=== PATIENT | female | born 1945 | race Caucasian/White ===

== ENCOUNTER 2022-07-08 14:20 | Outpatient (CLI) | payer MEDICARE, SELFPAY ==
[2022-07-08 14:58] LABS: Hematocrit 39.8 % (33.0-51.0); Hemoglobin* 13.3 gm/dL (12.0-16.0); Mean Corpuscular HGB Conc 33 gm/dL (32-36); Mean Corpuscular Hemoglobin 30 pg (26-34); Mean Corpuscular Volume 90 fL (80-100); Platelet Count* 202 K/uL (140-440); Red Blood Count 4.43 m/uL (4.00-5.20); White Blood Count* 7.18 K/uL (4.50-11.00)
[2022-07-08 15:06] LABS: Slide Review Reflex No
[2022-07-08 21:20] LABS: Albumin* 4.5 g/dL (3.3-5.0); Chloride* 104 mmol/L (96-114); Sodium* 140 mmol/L (135-149)
[2022-07-08 21:21] LABS: Potassium* 4.4 mmol/L (3.6-5.1)
[2022-07-08 21:23] LABS: Alkaline Phosphatase* 100 U/L (40-150); Aspartate Amino Transferase* 30 U/L (12-35); Bilirubin Total* 0.4 mg/dL (0.1-1.5); Blood Urea Nitrogen* 16 mg/dL (7-30); Carbon Dioxide* 26 mmol/L (20-32); Creatinine* 0.9 mg/dL (0.5-1.5); Estimated Glomerular Filt Rate 66 ml/min; Total Protein* 7.3 g/dL (6.0-8.3)
[2022-07-08 21:24] LABS: Alanine Aminotransferase* 23 U/L (4-35); Calcium* 9.3 mg/dL (8.4-10.6); Glucose* 84 mg/dL (60-115)
== END 2022-07-08 14:21 | disposition home or self-care (01) ==
PROVIDERS: PCP Family Medicine; Visit Provider Physician Assistant Medical
DX: R53.83 Other fatigue (principal); R05.9 Cough, unspecified
CPT/HCPCS: 80053; 84443; 85027

== ENCOUNTER 2022-09-12 10:15 | Outpatient (CLI) | payer MEDICARE, SELFPAY ==
--- OUTSIDE RECORDS SUMMARY | 2022-09-12 10:39 | XMS_ITS | Encounter Summary ---
:1945 Author Organization [facility] Address [address] [place] [address] Care Team Providers Name Role Phone Flavia Guardado MD Primary Care Provider aHley Gayle DO Unavailable Reason for Referral Diagnostic Imaging MRI (Routine) - Closed Specialty Diagnoses / Procedures Referred By Contact Refer red To Contact Diagnoses Memory loss Haley Gayle DO Procedures MR Brain w/o Contrast [address] [place] [address] Phone: Referral ID Status Reason Start Date Expiration Date Visits Requ ested Visits Authorized [id number] Closed 03/08/2021 03/08/2022 1 1 Encounter Details Date Type Department Care Team Description 03/08/2021 Telephone [facility] Haley Gayle DO [place] [address] [facility] [address] [place] [address] [address] [place] [address] [phone] Social History Tobacco Use Types Packs/Day Years Used Date Smoking Tobacco: Never Smokeless Tobacco: Never Alcohol Use Standard Drinks/Week Comments Yes 0 (1 standard drink = 0.6 oz pure alcoho l) 1-2 glasses wine per month Sex Assigned at Date Recorded Not on file COVID-19 Exposure Response Date Recorded In the last month, have you been in contact with No / Unsure 03/01/2021 9:27 AM CDT someone who was confirmed or suspected to have Coronavirus / COVID-19? documented as of this encounter Miscellaneous Notes Telephone Encounter - Katey Webster RN - 03/29/2021 4:00 PM CDT Called [facility] and gave verbal OK for MRI Brain with and without contrast. Katey WILKES RN March 29, 2021 4:01 PM Telephone Encounter - Haley Gayle DO - 03/29/2021 3:09 PM CDT Yes ok to give verbal order for MRI with and without contrast. Thank you triage for relaying this!! Telephone Encounter - Marisol Engel RN - 03/29/2021 2:01 PM CDT [facility] called - based on diagnosis most likely radiologist will need to do with contrast Asking if okay to change order to state with and without contrast? Call back number: , option 2 Ok to call with verbal okay - for MRI adjustment in order Marisol Peralta RN Telephone Encounter - Misti Spears - 03/28/2021 2:09 PM CDT Per patient request- MRI order faxed to [phone] Telephone Encounter - Haley Gayle DO - 03/08/2021 1:45 PM CDT MRI ordered - given to Maegan who accompanied to his visit today. [facility] re: insurance coverage for an open brain MRI. documented in this encounter Plan of Treatment Scheduled Orders Name Type Priority Associated Diagnoses Order S chedule MR Brain w/o Contrast Imaging Routine Memory loss Expect ed: 03/15/2021 (Approximate), Expires: 03/08/2022 documented as of this encounter Visit Diagnoses Diagnosis Memory loss - Primary documented in this encounter Care Teams Area Development Consultant Relationship Specialty Start Date End Date Flavia Guardado MD PCP - General Family Practice 08/05/[address] [address] Haley Gayle DO Assigned PCP 02/01/21 [address] [place] [address] documented as of this encounter
--- OUTSIDE RECORDS SUMMARY | 2022-09-12 10:39 | XMS_ITS | Encounter Summary ---
:1945 Author Organization [facility] Address [address] [place] [address] Care Team Providers Name Role Phone Flavia Guardado MD Primary Care Provider [phone] Haley Gayle DO Unavailable Encounter Details Date Type Department Care Team Description 03/01/2021 Travel Social History Tobacco Use Types Packs/Day Years [...] / COVID-19? documented as of this encounter Plan of Treatment Not on filedocumented as of this encounter Visit Diagnoses Not on filedocumented in this encounter Care Teams Property Adjuster Relationship Specialty Start Date End Date Flavia Guardado MD PCP - General Family Practice 08/05/[address] [address] Haley Gayle DO Assigned PCP 02/01/21 [address] [place] [address] documented as of this encounter
--- OUTSIDE RECORDS SUMMARY | 2022-09-12 10:39 | XMS_ITS | Encounter Summary ---
:1945 Author Organization [facility] Address [address] [place] [address] Care Team Providers Name Role Phone Flavia Guardado MD Primary Care Provider [phone] Haley Gayle DO Unavailable Encounter Details Date Type Department Care Team Description 06/16/2022 Travel Social History Tobacco Use Types Packs/Day Years Used Date Smoking Tobacco: Never Smokeless Tobacco: Never Alcohol Use Standard Drinks/Week Comments Yes 0 (1 standard drink = 0.6 oz pure alcoho l) 1-2 glasses wine per month Sex Assigned at Date Recorded Not on file COVID-19 Exposure Response Date Recorded In the last 10 days, have you been in contact with No / Unsu re 06/16/2022 5:28 PM CDT someone who was confirmed or suspected to have Coronavirus/COVID-19? documented as of this encounter Plan of Treatment Not on filedocumented as of this encounter Visit Diagnoses Not on filedocumented in this encounter Care Teams Air Bag Curer Relationship Specialty Start Date End Date Flavia Guardado MD PCP - General Family Practice 08/05/[address] [address] Haley Gayle DO Assigned PCP 02/01/21 [address] [place] [address] documented as of this encounter
--- OUTSIDE RECORDS SUMMARY | 2022-09-12 10:39 | XMS_ITS | Clinical Summary ---
:1945 Author Organization [facility] [place] [address] Care Team Providers Name Role Phone Flavia Guardado MD Primary Care Provider [phone] Allergies Active Allergy Reactions Severity Noted Date Comments Prednisone Vomiting 02/20/2021 Medications Medication Sig Dispensed Refills Start Date End Date Status multivitamin-minerals Daily 0 Active therapeutic (THERAGRAN-M) tablet escitalopram oxalate Take 10 mg by 0 03/26/2021 Active (LEXAPRO) 10 mg tablet mouth once daily. cholecalciferol (VITAMIN Take 1,000 0 12/22/2020 Active D3) 1,000 unit tablet units by mouth once daily. rosuvastatin (CRESTOR) 5 0 03/20/2021 Active mg tablet famotidine (PEPCID) 20 Take 1 Tablet 0 03/28/2021 Active mg tablet (20 mg) by mouth 2 times daily. omeprazole (PRILOSEC) 40 Take 1 Capsule 30 Capsule 11 1 Active mg Delayed-Release (40 mg) by capsuleIndications: mouth once Hoarseness of voice, daily. Gastroesophageal reflux disease, unspecified whether esophagitis present Active Problems Not on file Social History Tobacco Use Types Packs/Day Years Used Date Never Smoker Smokeless Tobacco: Never Used Tobacco Cessation: Counseling Given: Yes Sex Assigned at Date Recorded Not on file Obstetrics History Last Filed Vital Signs Vital Sign Reading Time Taken Comments Blood Pressure 126/68 03/28/2021 3:08 PM CDT Pulse 82 03/28/2021 3:08 PM CDT Temperature - - Respiratory Rate - - Oxygen Saturation 97% 03/28/2021 3:08 PM CDT Inhaled Oxygen Concentration - - Weight 70.7 kg (155 lb 12.8 oz) 03/28/2021 3:08 PM CDT Height - - Body Mass Index - - Plan of Treatment Health Maintenance Due Date Last Done Comments Tdap 1956 Depression screening for age 12+ 1957 BMI (ht and wt on same day) for age 18+ 1963 Hepatitis C screening for age 18-79 1963 Tetanus booster 1965 Zoster (shingles) series for age 50+ (1 of 1995 2) DEXA/DXA scan for age 65+ 2010 Medicare Wellness for age 65+ 2010 Pneumococcal series for age 65+ (1 - PCV) 2010 COVID-19 vaccine series (3 - Booster for 03/10/2021 021, 12/23/2020 Pfizer series) Influenza for age 65+ 07/11/2022 Results Not on filefrom Last 3 Months Insurance Payer Benefit Plan / Subscriber ID Effective Dates Phone Addre ss Type Group MEDICARE PART B MEDICARE PART B [id number] 2010-Present ATTN: CLAIMS - HB USE ONLY HB ONLY [address] [place] [address] [facility] MEDICARE [id number] 2019-Present [address] [place] [address] Care Teams Residential Program Manager Relationship Specialty Start Date End Date Flavia Guardado MD PCP - General Family Practice 08/05/16[address] [place] [address]
--- OUTSIDE RECORDS SUMMARY | 2022-09-12 10:39 | XMS_ITS | Clinical Summary ---
:1945 Author Organization [facility] Address [address] [place] [address] Care Team Providers Name Role Phone Flavia Guardado MD Primary Care Provider [phone] Haley Gayle DO Unavailable Allergies Active Allergy Reactions Severity Noted Date Comments Prednisone 02/20/2021 Medications Medication Sig Dispensed Refills Start Date End Date Status escitalopram (LEXAPRO) Take 10 mg by 0 Active 10 MG tablet mouth daily Multiple vitamin TABS Take by mouth 0 Active daily albuterol (ALBUTEROL) Inhale 2 puffs 1 Inhaler 1 09/12/2016 Active 108 (90 BASE) MCG/ACT into the lungs inhalerIndications: every 6 hours as SOB (shortness of needed for breath) shortness of breath / dyspnea or wheezing ibuprofen (ADVIL) 200 Take 400 mg by 0 Active MG tablet mouth as needed for mild pain rosuvastatin (CRESTOR) Take 5 mg by mouth 0 12/22/19 21 Active 5 MG tablet daily famotidine (PEPCID) 20 Take 20 mg by 0 02/13/2021 Active MG tablet mouth 2 times daily Active Problems Patient Care Coordination Note Formatting of this note might be differe nt from the original. [email or web address] No additional problems on file Resolved Problems Problem Noted Date Resolved Date Thoracic or lumbosacral neuritis or radiculitis, unspecified 05/08/2015 07/07/2015 Encounters Date Type Specialty Care Team Description 06/16/2022 Travel from Last 3 Months Immunizations Name Administration Dates Next Due MIKE BONNER,Mary (12+ Yrs) 01/13/2021, 12/23/2020 Influenza (High Dose) 3 valent vaccine 09/10/2018 Influenza Vaccine IM > 6 months Valent IIV4 08/29/2020, 10/10 (Alfuria,Fluzone) Pneumo Conj 13-V (2010&after) 08/29/2017 Pneumococcal 23 valent 09/12/2010 TDAP Vaccine (Adacel) 03/29/2014, 05/20/2006 Td (Adult), Adsorbed 03/24/1998 Zoster vaccine, live 03/10/2008 Family History Medical History Relation Comments Diabetes Brother Colon Cancer Father Substance Abuse Father Anxiety Disorder Mother Hyperlipidemia Mother Hypertension Mother Other Cancer Mother Liver Relation Status Comments Brother Father (Age 66) Colon Cancer Mother (Age 76) HTN , Cancer Social History Tobacco Use Types Packs/Day Years Used Date Smoking Tobacco: Never Smokeless Tobacco: Never Alcohol Use Standard Drinks/Week Comments Yes 0 (1 standard drink = 0.6 oz pure alcoho l) 1-2 glasses wine per month Sex Assigned at Date Recorded Not on file Last Filed Vital Signs Vital Sign Reading Time Taken Comments Blood Pressure 133/83 03/01/2021 9:36 AM CDT Pulse 106 03/01/2021 9:36 AM CDT Temperature 36.4 ??C (97.5 ??F) 03/01/2021 9:36 AM CDT Respiratory Rate - - Oxygen Saturation 97% 03/01/2021 9:36 AM CDT Inhaled Oxygen Concentration - - Weight 70.8 kg (156 lb) 03/01/2021 9:36 AM CDT Height 167.6 cm (5' 6) 03/01/2021 9:36 AM CDT Body Mass Index 25.18 03/01/2021 9:36 AM CDT Plan of Treatment Health Maintenance Due Date Last Done Comments ADVANCE CARE PLANNING 1945 ANNUAL REVIEW OF HM ORDERS 1945 DEXA 1945 HEPATITIS C SCREENING 1963 ZOSTER IMMUNIZATION (2 of 05/05/2008 03/10/2008 3) MEDICARE ANNUAL WELLNESS 2010 VISIT COVID-19 Vaccine (3 - 03/10/2021 01/13/2021, 12/23/2020 Booster for Pfizer series) LIPID 07/17/2021 07/17/2016 PHQ-2 (once per calendar 11/10/2021 03/01/2021 year) FALL RISK ASSESSMENT 03/01/2022 03/01/2021 INFLUENZA VACCINE (#1) 2022 08/29/2020, 10/19/2019, 09/10/2018, Additional history exists DTAP/TDAP/TD IMMUNIZATION 03/29/2024 03/29/2014, 03/29/2014 , (3 - Td or Tdap) 05/20/2006, Additional history exists HEPATITIS B IMMUNIZATION Completed 01/04/2000, 08/03/1999, 06/15/1999 Pneumococcal Vaccine: 65+ Completed 08/29/2017, 09/12/2010 Years IPV IMMUNIZATION Aged Out No longer eligi ble based on patient 's age to complete this topic MENINGITIS IMMUNIZATION Aged Out No longe r eligible based on patient 's age to complete this topic Insurance Payer Benefit Plan / Subscriber ID Effective Dates Phone Addre ss Type Group [facility] MEDICARE [id number] 2019-Present [phone] [address] [place] [address] Anabel Bradford Medicare Self 1945 [id number] [employer] (Home) W [phone] [place] (Work) [phone] Care Teams Chief Guard Relationship Specialty Start Date End Date Flavia Guardado MD PCP - General Family Practice 08/05/16 [facility] [address] [place] [address] Haley Gayle, Assigned PCP 02/01/21 [address] [place] [address]
--- OUTSIDE RECORDS SUMMARY | 2022-09-12 10:39 | XMS_ITS | Encounter Summary ---
:1945 Author Organization [facility] Address [address] [place] [address] Care Team Providers Name Role Phone Flavia Guardado MD Primary Care Provider [phone] Haley Gayle DO Unavailable Reason for Visit Reason Onset Date Comments MRI Materials Engineer 04/05/2021 Brain 04/03/21 Encounter Details Date Type Department Care Team Description 04/05/2021 Telephone [facility] Haley Gayle, MRI Materials Engineer Clinic [facility] (Brain 04/03/21) [address], [address] [place] [address] [place], [place] [id number] (Wo rk) Social History Tobacco Use Types Packs/Day Years Used Date Smoking Tobacco: Never Smokeless Tobacco: Never Alcohol Use Standard Drinks/Week Comments Yes 0 (1 standard drink = 0.6 oz pure alcoho l) 1-2 glasses wine per month Sex Assigned at Date Recorded Not on file documented as of this encounter Miscellaneous Notes Telephone Encounter - Haley Gayle DO - 04/05/2021 4:59 PM CDT Received brain MRI from [facility] and shared results with Maegan on the phone. 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 She was relieved. She can contact [facility] directly if she'd like a copyof the report. Haley Gayle DO documented in this encounter Plan of Treatment Not on filedocumented as of this encounter Visit Diagnoses Not on filedocumented in this encounter Care Teams Material Control Manager Relationship Specialty Start Date End Date Flavia Guardado MD PCP - General Family Practice 08/05/[address] [address] Haley Gayle DO Assigned PCP 02/01/21 [address] [place] [address] documented as of this encounter
--- OUTSIDE RECORDS SUMMARY | 2022-09-12 10:40 | XMS_ITS | Encounter Summary ---
:1945 Author Organization [facility] Address [address] [facility] [place] [address] Care Team Providers Name Role Phone Flavia Guardado MD Primary Care Provider [phone] Reason for Visit Reason Comments Hyperlipidemia 1 month f/u w/ Dr Carlson; HL D, Chest Pain, ARENAS Results CTA - Closed Specialty Diagnoses / Procedures Referred By Contact Refer red To Contact Diagnoses SOB (shortness of breath) Chest pain, unspecified type Emilie Carlson DO [address] [place] [address] Referral ID Status Reason Start Date Expiration Date Visits Requ ested Visits Authorized [id number] Closed 11/23/2016 11/23/2017 1 1 Encounter Details Date Type Department Care Team Description 11/25/2016 Office Visit [facility] Emilie Carlson Hyper lipidemia LDL goal <100 (Primary Dx); [facility] DO [place] SOB (shortness of breath); [place] [address] Chest pain, unspecified type [address] [place] [address] [place], [place] [phone] (Work) [phone] Social History Tobacco Use Types Packs/Day Years Used Date Smoking Tobacco: Never Alcohol Use Standard Drinks/Week Comments Yes 0 (1 standard drink = 0.6 oz pure alcoho l) rare Sex Assigned at Date Recorded Not on file documented as of this encounter Last Filed Vital Signs Vital Sign Reading Time Taken Comments Blood Pressure 134/80 11/25/2016 10:15 AM PHYSIOGNOMIST Pulse 60 11/25/2016 10:15 AM PHYSIOGNOMIST Temperature - - Respiratory Rate - - Oxygen Saturation - - Inhaled Oxygen Concentration - - Weight 68.9 kg (152 lb) 11/25/2016 10:15 AM PHYSIOGNOMIST Height 167.6 cm (5' 6) 11/25/2016 10:15 AM PHYSIOGNOMIST Body Mass Index 24.53 11/25/2016 10:15 AM PHYSIOGNOMIST documented in this encounter Progress Notes Emilie Carlson, DO - 11/25/2016 10:32 AM CST HPI and Plan: See dictation No orders of the defined types were placed in this encounter. Orders Placed This Encounter Medications ??? ibuprofen (ADVIL) 200 MG tablet Sig: Take 400 mg by mouth as needed for mild pain There are no discontinued medications. Encounter Diagnoses Name Primary? SOB (shortness of breath) ??? Chest pain, unspecified type ? ? Hyperlipidemia LDL goal <100 Yes CURRENT MEDICATIONS: Current Outpatient Prescriptions Medication Sig Dispense Refill ??? ibuprofen (ADVIL) 200 MG tablet Take 400 mg by mouth as needed for mild pain ??? escitalopram (LEXAPRO) 10 MG tablet Take 10 mg by mouth daily ??? atorvastatin (LIPITOR) 10 MG tablet Take 10 mg by mouth daily ??? Multiple vitamin TABS Take by mouth daily ??? aspirin 81 MG tablet Take by mouth daily ??? albuterol (ALBUTEROL) 108 (90 BASE) MCG/ACT inhaler Inhale 2 puffs into the lungs every 6 hours as needed for shortness of breath / dyspnea or wheezing 1 Inhaler 1 ALLERGIES No Known Allergies PAST MEDICAL HISTORY: Past Medical History Diagnosis Date ??? Shortness of breath ARENAS ??? Chest heaviness ??? Hyperlipidemia ??? Anxiety and depression ??? Asthma, intermittent ??? Basal cell carcinoma 2014 On Nose PAST SURGICAL HISTORY: Past Surgical History Procedure Laterality Date ??? Hysterectomy ??? Shoulder surgery FAMILY HISTORY: Family History Problem Relation Age of Onset ??? Hypertension Mother ??? Hyperlipidemia Mother ??? Colon Cancer Father ??? Substance Abuse Father SOCIAL HISTORY: Social History Social History ??? Marital Status: Spouse Name: N/A ??? Number of Children: N/A ??? Years of Education: N/A Social History Main Topics ??? Smoking status: Never Smoker ??? Smokeless tobacco: None ??? Alcohol Use: 0.0 oz/week 0 Standard drinks or equivalent per week Comment: rare ??? Drug Use: None ??? Sexual Activity: Not Asked Other Topics Concern ??? Caffeine Concern Yes 4-5 cups of coffee daily ??? Sleep Concern Yes sleep apnea c-pap ??? Special Diet No ??? Exercise No walking 2-3x per week Social History Narrative Review of Systems: Skin: Negative Eyes: Positive for glasses ENT: Positive for sinus trouble;tinnitus seasonal sinus Respiratory: Positive for sleep apnea;CPAP Asthma Cardiovascular: Positive for;fatigue chest pressure - a little bit - per pt Gastroenterology: Positive for constipation Diverticulosis- harder stools Genitourinary: Positive for urgency occas Musculoskeletal: Positive for back pain;joint pain;nocturnal cramping mild pain in back that comes and goes; right knee Neurologic: Positive for migraine headaches;headaches hx of migraines / headaches -none recently Psychiatric: sleep disturbances;anxiety taking Lexapro Heme/Lymph/Imm: Positive for allergies seasonal Endocrine: Negative Physical Exam: Vitals: BP 134/80 mmHg Pulse 60 Ht 1.676 m (5' 6) Wt 68.947 kg (152 lb) BMI 24.55 kg/m2 Constitutional: cooperative, alert and oriented, well developed, well nourished, in no acute distress Skin: warm and dry to the touch Head: normocephalic Eyes: pupils equal and round ENT: no pallor or cyanosis Neck: Chest: Cardiac: Abdomen: Vascular: Extremities and Back: no deformities, clubbing, cyanosis, erythema observed;no edema Neurological: affect appropriate, oriented to time, person and place;no gross motor deficits Emilie Carlson DO [facility] [address] [place] [address] IOGNOMIST Emilie Carlson DO - 11/25/2016 10:32 AM CST REFERRING PHYSICIAN: Dr. Flavia Guardado. HISTORY OF PRESENT ILLNESS: Ms. Mccauley is a pleasant 71-year-old female with a history of hyperlipidemia, chest pain and dyspnea on exertion as well as profound fatigue. She had undergone a stress test at [facility] that was read as normal, although she did have some minor EKG abnormalities. She u nderwent pulmonary evaluation which was fairly unremarkable. She continued to have symptoms. Therefore, I had recommended pursuing a CT coronary angiogram for further evaluation. She is here to go overthose tests results. Her CT coronary angiogram unfortunately showed only minimal nonobstructive coronary disease. Her total calcium scoring was 50 which is right in the middle of where she should be for her age and gender matched group. Certainly, no indication that significant heart disease are causative of her symptoms. I reviewed the test results with her today. PHYSICAL EXAMINATION: On exam, her blood pressure is 134/80. This is actually a little high for her.She is very normotensive on her previous visits. Heart rate is 60, weight 152 with a body mass indexof 24. Physical exam findings are otherwise unchanged. SUMMARY: Ms. Mccauley is a very pleasant 71-year-old female with symptoms of chest pain and dyspnea on exertion, hyperlipidemia. She has very minimal coronary disease, certainly does not explain her symptoms. She has had a normal stress echocardiogram with some minor EKG abnormalities. I suspect she may have some degree of diastolic dysfunction contributing to her symptoms, but I do not see any evidenceof acute decompensation or need for medication at this time as she is normotensive with a slow pulse. I have suggested a walking program for her to improve upon her exercise tolerance. This was noted to be poor on her stress echo at [facility] as well. She has already started this and she will continue this as she is traveling to [place], [place] for about 2 months. I have suggested walking at least 3 or 4 times a week at a brisk pace for approximately 20 minutes to improve upon her exercise tolerance. I will refer her back to her primary care provider at this time. Certainly, if she has any other questions or concerns, I am happy to see her back for any of her cardiovascular needs. Please feel freeto contact me with any questions you have in regards to her care. cc: Flavia Guardado MD [address] [address] EMILIE CARLSON DO MT: [place] Name: ANABEL MCCAULEY Account: [id number] : 1945 Service Date: 11/25/2016 Document: [id number] IOGNOMIST documented in this encounter Plan of Treatment Not on filedocumented as of this encounter Visit Diagnoses Diagnosis Hyperlipidemia LDL goal <100 - Primary Other and unspecified hyperlipidemia SOB (shortness of breath) Shortness of breath Chest pain, unspecified type documented in this encounter Care Teams Signal Operator Technical Relationship Specialty Start Date End Date Flavia Guardado MD PCP - General Family Practice 08/05/16 [facility] [address] [place] [address] documented as of this encounter
--- OUTSIDE RECORDS SUMMARY | 2022-09-12 10:40 | XMS_ITS | Encounter Summary ---
:1945 Author Organization [place] Address [address] [place] [address]. [place] [address] Care Team Providers Name Role Phone Flavia Guardado MD Primary Care Provider [phone] Reason for Visit Reason Onset Date Comments *-*INCOMING RECORDS*-* 09/06/2016 received PMD visi t 07/17/16. Xray, EKG and labs(lipid panel, BMP, B12, CBC , TSH, Vit D, ALT, AST) from 07/17/16. Stress test and stress ECHO dated 07/30/16 Encounter Details Date Type Department Care Team Description 09/06/2016 Telephone [facility] AldoEmilie *-*IN COMING RECORDS*-* Heart Clinic Yumi Palma DO (received PMD visit [address] [facility] [address] . Xray, EKG and [address] labs(lipid panel, BMP, [place] [address] [place] [address] B12, CBC, TSH, Vit D, (Wo rk) ALT, AST) from 07/17/16. Stress te st and stress ECHO dated 07/30) Social History Tobacco Use Types Packs/Day Years Used Date Smoking Tobacco: Never Assessed Sex Assigned at Date Recorded Not on file documented as of this encounter Plan of Treatment Not on filedocumented as of this encounter Procedures Procedure Name Priority Date/Time Associated Diagnosis Comme nts CBC (GENOA) Routine 07/17/2016 Results for thi s procedure are i n the results section . VITAMIN D 25-HYDROXY Routine 07/17/2016 Results for this ([facility]) procedure are i n the results section . TSH Routine 07/17/2016 Results for thi s procedure are i n the results section . LIPID PROFILE Routine 07/17/2016 Results for th is procedure are i n the results section . VITAMIN B12 Routine 07/17/2016 Results for thi s procedure are i n the results section . BASIC METABOLIC PANEL Routine 07/17/2016 Result s for this procedure are i n the results section . documented in this encounter Results Lipid Profile (07/17/2016) Analysis Performed At Patho logist Time Signature Cholesterol 238 mg/dL EXTERNAL LAB Triglycerides 169 mg/dL EXTERNAL LAB HDL Cholesterol 45 mg/dL EXTERNAL LAB LDL Cholesterol 159 mg/dL EXTERNAL LAB Calculated Non HDL mg/dl EXTERNAL LAB Cholesterol AST 33 U/L EXTERNAL LAB ALT 31 U/L EXTERNAL LAB Alk Phosphatase 82 EXTERNAL LAB (External) Albumin 4.6 g/dL EXTERNAL LAB Specimen (Source) Anatomical Location Collection Method / Collectio n Time Received Time / Laterality Volume Blood specimen 07/17/2016 (specimen) Provider Outside LAB - BLOOD ORDERABLES Performing Organization Address City/State/ZIP Code Phon e Number EXTERNAL LAB EXTERNAL LAB External Lab CBC ([place]) (07/17/2016) P athologist Signature WBC 6.3 10^9/L EXTERNAL LAB RBC Count 4.71 10^12/L EXTERNAL LAB Hemoglobin 14.6 11.7 - EXTERNAL LAB 15.7 g/dL Hematocrit 42.6 % EXTERNAL LAB MCV 90 fl EXTERNAL LAB MCH 31 pg EXTERNAL LAB MCHC [place] 34 % EXTERNAL LAB RDW % EXTERNAL LAB Platelet Count 199 10^9/L EXTERNAL LAB Mean Platelet fL EXTERNAL LAB Volume % Neutrophils 58.2 % EXTERNAL LAB % Lymphocytes 32.3 % EXTERNAL LAB % Monocytes % EXTERNAL LAB % Eosinophils % EXTERNAL LAB % Basophils % EXTERNAL LAB Abs Neutrophils cells/mm3 EXTERNAL LAB Abs Lymphocytes cells/mm3 EXTERNAL LAB Abs Monocytes cells/mm3 EXTERNAL LAB Abs Eosinophils cells/mm3 EXTERNAL LAB Abs Basophils cells/mm3 EXTERNAL LAB Specimen (Source) Anatomical Location Collection Method / Collectio n Time Received Time / Laterality Volume Blood specimen 07/17/2016 (specimen) Provider Outside LAB - BLOOD ORDERABLES Performing Organization Address City/State/ZIP Code Phon e Number EXTERNAL LAB EXTERNAL LAB External Lab Basic metabolic panel (07/17/2016) P athologist Signature Sodium 145 mmol/L EXTERNAL LAB Potassium 4.8 mmol/L EXTERNAL LAB Chloride 105 mmol/L EXTERNAL LAB CO2, TOTAL 28 mmol/L EXTERNAL LAB Anion Gap mmol/L EXTERNAL LAB Glucose 94 70 - 99 EXTERNAL LAB mg/dL Urea Nitrogen 11 mg/dL EXTERNAL LAB Creatinine 0.8 mg/dL EXTERNAL LAB Calcium 9.7 mg/dL EXTERNAL LAB Specimen (Source) Anatomical Location Collection Method / Collectio n Time Received Time / Laterality Volume Blood specimen 07/17/2016 (specimen) Provider Outside LAB - BLOOD ORDERABLES Performing Organization Address City/[facility]/ZIP [facility] Phon e Number EXTERNAL LAB EXTERNAL LAB External Lab TSH (07/17/2016) athologist Signature TSH 1.260 mcU/mL EXTERNAL LAB Specimen (Source) Anatomical Location Collection Method / Collectio n Time Received Time / Laterality Volume Blood specimen 07/17/2016 (specimen) Provider Outside LAB - BLOOD ORDERABLES Performing Organization Address City/[facility]/ZIP Code Phon e Number EXTERNAL LAB EXTERNAL LAB External Lab Vitamin D 25-Hydroxy ([facility]) (07/17/2016) P athologist Signature Vitamin 33 ng/mL EXTERNAL LAB D,25-Hydroxy Specimen (Source) Anatomical Location Collection Method / Collectio n Time Received Time / Laterality Volume Blood specimen 07/17/2016 (specimen) Provider Outside LAB - [facility] Performing Organization Address City/[facility]/ZIP Code Phon e Number EXTERNAL LAB EXTERNAL LAB External Lab Vitamin B12 (07/17/2016) P athologist Signature Vitamin B12 436 pg/mL EXTERNAL LAB Specimen (Source) Anatomical Location Collection Method / Collectio n Time Received Time / Laterality Volume Blood specimen 07/17/2016 (specimen) Provider Outside LAB - BLOOD ORDERABLES Performing Organization Address City/[facility]/ZIP Code Phon e Number EXTERNAL LAB EXTERNAL LAB External Lab documented in this encounter Visit Diagnoses Not on filedocumented in this encounter Care Teams Allocation Analyst Relationship Specialty Start Date End Date Flavia Guardado MD PCP - General Family Practice 08/05/[address] [address] documented as of this encounter
--- OUTSIDE RECORDS SUMMARY | 2022-09-12 10:40 | XMS_ITS | Encounter Summary ---
:1945 Author Organization [place] Address [facility] [place] [address] Care Team Providers Name Role Phone Flavia Guardado MD Primary Care Provider [phone] Encounter Details Date Type Department Care Team Description 09/19/2016 Hospital Encounter [facility] Emilie Carlson SOB (shortness of [facility] [place], DO breath) [address] [facility] [address] [place], [place] [address] [place], [place] [address] Social History Tobacco Use Types Packs/Day Years Used Date Smoking Tobacco: Never Alcohol Use Standard Drinks/Week Comments Yes 0 (1 standard drink = 0.6 oz pure alcoho l) rare Sex Assigned at Date Recorded Not on file documented as of this encounter Medications at Time of Discharge Medication Sig Dispensed Refills Start Date End Date albuterol (ALBUTEROL) Inhale 2 puffs into 1 Inhaler 1 09/12 108 (90 BASE) MCG/ACT the lungs every 6 inhalerIndications: SOB hours as needed for (shortness of breath) shortness of breath / dyspnea or wheezing escitalopram (LEXAPRO) Take 10 mg by mouth 0 10 MG tablet daily Multiple vitamin TABS Take by mouth daily 0 aspirin 81 MG tablet Take by mouth daily 0 03/01/2021 atorvastatin (LIPITOR) Take 10 mg by mouth 0 03/01/2021 10 MG tablet daily documented as of this encounter Plan of Treatment Not on filedocumented as of this encounter Procedures Procedure Name Priority Date/Time Associated Diagnosis Comme nts HEMOGLOBIN Routine 09/19/2016 11:25 AM SOB (shortness of Res ults for this RESIDENT CARE MANAGER RN breath) procedure are i n the results section . documented in this encounter Results Hemoglobin (09/19/2016 11:25 AM RESIDENT CARE MANAGER RN) athologist Signature Hemoglobin 13.7 11.7 - 15.7 [facility] g/dL [facility] Specimen Anatomical Collection Method Collection Time Receive d Time (Source) Location / / Volume Laterality Blood specimen 09/19/2016 11:25 6 (specimen) AM RESIDENT CARE MANAGER RN 11:26 AM RESIDENT CARE MANAGER RN Emilie Carlson DO LAB - BLOOD ORDERABLES Performing Organization Address City/State/ZIP Code Phon e Number [place] [address] [address] [place] [address] [phone] documented in this encounter Visit Diagnoses Diagnosis SOB (shortness of breath) Shortness of breath documented in this encounter Care Teams Dental Appliance Mechanic Relationship Specialty Start Date End Date Flavia Guardado MD PCP - General Family Practice 08/05/[address] [address] documented as of this encounter
--- OUTSIDE RECORDS SUMMARY | 2022-09-12 10:40 | XMS_ITS | Encounter Summary ---
:1945 Author Organization [place] Address [address] [facility] [place] [address] Care Team Providers Name Role Phone Flavia Guardado MD Primary Care Provider [phone] Reason for Referral - Closed Specialty Diagnoses / Procedures Referred By Contact Refer red To Contact Diagnoses SOB (shortness of breath) Chest pain, unspecified type Emilie Carlson DO [address] [place] [address] Referral ID Status Reason Start Date Expiration Date Visits Requ ested Visits Authorized [id number] Closed 10/12/2016 10/12/2017 1 1 Encounter Details Date Type Department Care Team Description 09/12/2016 Office Visit [facility] Emilie Carlson SOB ( shortness of breath) (Primary Dx); Heart [facility] DO Minerva Chest pain, unspecified type Prim [address] [place] [address] [place], [place] [phone] (Wo rk) [address] [phone] Social History Tobacco Use Types Packs/Day Years Used Date Smoking Tobacco: Never Alcohol Use Standard Drinks/Week Comments Yes 0 (1 standard drink = 0.6 oz pure alcoho l) rare Sex Assigned at Date Recorded Not on file documented as of this encounter Last Filed Vital Signs Vital Sign Reading Time Taken Comments Blood Pressure 114/80 09/12/2016 7:52 AM CDT Pulse 72 09/12/2016 7:52 AM CDT Temperature - - Respiratory Rate - - Oxygen Saturation - - Inhaled Oxygen Concentration - - Weight 68.3 kg (150 lb 9.6 oz) 09/12/2016 7:52 AM CDT Height 167.6 cm (5' 6) 09/12/2016 7:52 AM CDT Body Mass Index 24.31 09/12/2016 7:52 AM CDT documented in this encounter Progress Notes Emilie Carlson, DO - 09/12/2016 8:33 AM CDT HPI and Plan: See dictation Orders Placed This Encounter Procedures ??? Follow-Up with Mechanical Test Engineer ??? General PFT Lab (Please always keep checked) Orders Placed This Encounter Medications ??? escitalopram (LEXAPRO) 10 MG tablet Sig: Take 10 mg by mouth daily ??? atorvastatin (LIPITOR) 10 MG tablet Sig: Take 10 mg by mouth daily ??? Multiple vitamin TABS Sig: Take by mouth daily ??? aspirin 81 MG tablet Sig: Take by mouth daily ??? albuterol (ALBUTEROL) 108 (90 BASE) MCG/ACT inhaler Sig: Inhale 2 puffs into the lungs every 6 hours as needed for shortness of breath / dyspnea or wheezing Dispense: 1 Inhaler Refill: 1 There are no discontinued medications. Encounter Diagnoses Name Primary? SOB (shortness of breath) Yes ??? Chest pain, unspecified type CURRENT MEDICATIONS: Current Outpatient Prescriptions Medication Sig Dispense Refill ??? escitalopram (LEXAPRO) 10 MG tablet Take [...] ALLERGIES No Known Allergies PAST MEDICAL HISTORY: No past medical history on file. PAST SURGICAL HISTORY: No past surgical history on file. FAMILY HISTORY: Family History Problem Relation Age of Onset ??? Hypertension Mother ??? Hyperlipidemia Mother ??? Colon Cancer Father ??? Substance Abuse Father SOCIAL HISTORY: Social History Social History ??? Marital Status: Spouse Name: N/A ??? Number of Children: N/A ??? Years of Education: N/A Social History Main Topics ??? Smoking status: Never Smoker ??? Smokeless tobacco: Not on file ??? Alcohol Use: 0.0 oz/week 0 Standard drinks or equivalent per week Comment: rare ??? Drug Use: Not on file ??? Sexual Activity: Not on file Other Topics Concern ??? Caffeine Concern Yes 4-5 cups of coffee daily ??? Sleep Concern Yes sleep apnea c-pap ??? Special Diet No ??? Exercise No Social History Narrative ??? No narrative on file Review of Systems: Skin: Negative Eyes: Positive for glasses ENT: Positive for sinus trouble;tinnitus seasonal sinus , Respiratory: Positive for dyspnea on exertion;sleep apnea;CPAP Asthma Cardiovascular: fatigue;Positive for Gastroenterology: Positive for Diverticulosis Genitourinary: Negative Musculoskeletal: Positive for back pain mild pain in back that comes and goes Neurologic: Positive for migraine headaches;headaches Psychiatric: Positive for excessive stress taking Lexapro Heme/Lymph/Imm: Positive for allergies seasonal Endocrine: Negative Physical Exam: Vitals: BP 114/80 mmHg Pulse 72 Ht 1.676 m (5' 6) Wt 68.312 kg (150 lb 9.6 oz) BMI 24.32 kg/m2 Constitutional: cooperative, alert and oriented, well developed, well nourished, in no acute distress Skin: warm and dry to the touch Head: normocephalic Eyes: pupils equal and round ENT: no pallor or cyanosis Neck: carotid pulses are full and equal bilaterally Chest: clear to auscultation;normal symmetry Cardiac: regular rhythm;no murmurs, gallops or rubs detected Abdomen: abdomen soft;no bruits Vascular: pulses full and equal Extremities and Back: no deformities, clubbing, cyanosis, erythema observed;no edema Neurological: affect appropriate, oriented to time, person and place;no gross motor deficits Flavia Guardado MD [address] [address] Emilie Carlson DO - 09/12/2016 8:30 AM CDT REFERRING PHYSICIAN: Dr. Flavia Guardado HISTORY OF PRESENT ILLNESS: Ms. Mccauley is a very pleasant 71-year-old female with a past medical history of hyperlipidemia who presents to clinic today for further evaluation of symptoms of shortness ofbreath, dyspnea on exertion, heaviness in the chest and fatigue. She states this has been ongoing for about 4-5 months. She admits to a lot of stress in her life and was recently diagnosed with anxietyand depression and put on Lexapro which she feels is helping with those symptoms. She has also been on Lipitor now for about 2 months for her hyperlipidemia. She underwent a stress echocardiogram at [facility] for her symptoms of chest heaviness and shortness of breath. She walkedon a Kenji protocol for 4 minutes and 9 seconds terminating due to fatigue. She achieved 113% of hertarget heart rate. The stress ECG portion did demonstrate 1-[address] segment depression in the inferior leads; however, the echocardiogram showed appropriate augmentation of the LV function without re gional wall motion abnormality suggesting a normal stress test. She likes to walk with her almost 2 miles per night and every time she walks up a hill lately she feels a heaviness in her chest as well as difficulty breathing and overall fatigue. This has limited her activity in the last 4-5 months. She has not experienced any palpitations or lightheadedness. She does have a history of intermittent asthma and has been prescribed an inhaler in the past. Shedoes not recall having had pulmonary function tests. She is a lifelong nonsmoker. 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 She has never worked on a farm or had any exposure to air pollutants. She has no history of asbestos exposure. They travel infrequently. She states [facility] [place] [facility] [place] [facility]. She has not experienced any coughing or wheezing with activities. She has no family history of premature coronary disease. Both parents apparently had hyperlipidemia andhypertension. No diabetes. No history of kidney disease. She has no history of personal diabetes or kidney disease or hypertension. I did review her EKG from 07/12 which looks completely normal. PHYSICAL EXAMINATION: On exam today, her blood pressure is 114/80, pulse is 72, weight 150, body mass index of 24. Carotid upstrokes are brisk without bruit. Cardiovascular tones are regular. She does have occasional ectopy noted on exam. I do not appreciate a murmur, gallop or rub. Lungs are clear posteriorly. She has strong and symmetric pulses in the upper and lower extremities without peripheral edema. IN SUMMARY: Ms. Mccauley is a very pleasant 71-year-old female with a history of hyperlipidemia, recently treated in the last 2 months with symptoms of chest heaviness, dyspnea on exertion and overwhelming fatigue over the past 4-5 months. She has had a negative stress test for evidence of ischemia. She does have a history of possible intermittent asthma, although I do not believe she has ever had formal pulmonary function tests. I would like her to undergo pulmonary function test to determine if she does in fact have evidence of asthma. I would also like her to try an inhaler before activities to seeif this is helpful in reducing her symptoms at all. I will have her return to clinic with these pulmonary function tests and to see if the inhaler works. If not, we may pursue further testing for ischemia. I have suggested a CT coronary angiogram to look for coronary disease if her pulmonary tests come back unremarkable. I have scheduled to see her back within a few weeks. Please feel free to contact me with any questions you have in regards to her care. Thank you for allowing me to participate in the care of your nice patient. cc: [place] [address] EMILIE CARLSON DO MT: SARA Name: ANABEL MCCAULEY MRN: [id number] Account: [id number] : 1945 Service Date: 09/12/2016 Document: [id number] ION AND NONFICTION PROSE WRITER documented in this encounter Plan of Treatment Scheduled Referrals Name Type Priority Associated Diagnoses Order S chedule Follow-Up with Referral Routine SOB (shortness of Expected : 10/12/2016 Mechanical Test Engineer breath) (Approximate), Chest pain, unspecified Expi res: 09/12/2017 type documented as of this encounter Visit Diagnoses Diagnosis SOB (shortness of breath) - Primary Shortness of breath Chest pain, unspecified type documented in this encounter Care Teams Pushcart Peddler Relationship Specialty Start Date End Date Flavia Guardado MD PCP - General Family Practice 08/05/[address] [address] documented as of this encounter
--- OUTSIDE RECORDS SUMMARY | 2022-09-12 10:40 | XMS_ITS | Encounter Summary ---
:1945 Author Organization [place] Address [address] [place] [address] Care Team Providers Name Role Phone Flavia Guardado MD Primary Care Provider [phone] Reason for Visit Reason Onset Date Comments Results 11/08/2016 CTangio 11/07/16 Encounter Details Date Type Department Care Team Description 11/08/2016 Telephone [facility] Yumi Novoa RN 11/07/16) [address] [facility] [address] [place] [address] Social History Tobacco Use Types Packs/Day Years Used Date Smoking Tobacco: Never Alcohol Use Standard Drinks/Week Comments Yes 0 (1 standard drink = 0.6 oz pure alcoho l) rare Sex Assigned at Date Recorded Not on file documented as of this encounter Miscellaneous Notes Telephone Encounter - Viki Yuen, MARSHALL - 11/13/2016 10:26 AM CST Pt called to review CTa results. I briefly reviewed results with her. Pt said she is not having the shortness of breath as often but still has occasional episodes of the chest heaviness, both with restand exertion. She thinks it may be more stress related. She will keep a diary of her symptoms and try to correlate whether they are occuring when she is feeling more anxious. She will keep 11/25 OV with to review further. ESletteboe RN TING PILE DRIVING ENGINEER Telephone Encounter - Sommer Flores RN - 11/08/2016 7:15 AM CST Call placed to pt, left non-urgent VM to return the call for CTa results. Pt scheduled for f/u 11/[address] Carlson. CORONARY CALCIUM SCORE Total Agatston calcium score: 50.31 Left main: 0.81 Left anterior descendin.85 Left circumflex: 0 Right coronary artery: 32.63 This places the patient in the 57th ??percentile when compared to age and gender matched control group. CORONARY ANGIOGRAPHY DOMINANCE: Right dominant system. Normal coronary origins and course. LEFT MAIN: The left main arises normally from the left coronary cusp and is widely patent without any detectable stenosis. LEFT ANTERIOR DESCENDING: Proximal LAD: Minimal (<25%) stenosis composed of calcified plaque. The remainder of the left anterior descending and its major diagonal branches are patent with minimal luminal irregularities. LEFT CIRCUMFLEX: The left circumflex and its major marginal branches are patent with minimal luminal irregularities RIGHT CORONARY ARTERY: Mid RCA: Minimal (<25%) stenosis composed of mixed plaque. The remainder of the right coronary and the posterior descending artery are patent with minimal luminal irregularities. ADDITIONAL FINDINGS: The proximal ascending aorta is normal in size. Normal pulmonary venous anatomy with all four pulmonary veins draining into the left atrium. ?? There is no left ventricular mass or thrombus. Normal pericardial thickness. There is no pericardial effusion. Please review Radiology report for incidental noncardiac findings that will follow separately. TING PILE DRIVING ENGINEER documented in this encounter Plan of Treatment Not on filedocumented as of this encounter Visit Diagnoses Not on filedocumented in this encounter Care Teams Glass Mould Cleaner Relationship Specialty Start Date End Date Flavia Guardado MD PCP - General Family Practice 08/05/[address] [address] documented as of this encounter
--- OUTSIDE RECORDS SUMMARY | 2022-09-12 10:40 | XMS_ITS | Encounter Summary ---
:1945 Author Organization [place] Address [address] [place] [address]. [place] [address] Care Team Providers Name Role Phone Flavia Guardado MD Primary Care Provider [phone] Reason for Visit Reason Onset Date Comments Previsit 10/21/2016 Encounter Details Date Type Department Care Team Description 10/21/2016 PRE VISIT [facility] Heart Emilie Carlson Previsit Clinic [facility] [address] [place] [address] [address] [place] [address] [address] [place] [address] [place], [place] [phone] Social History Tobacco Use Types Packs/Day Years Used Date Smoking Tobacco: Never Alcohol Use Standard Drinks/Week Comments Yes 0 (1 standard drink = 0.6 oz pure alcoho l) rare Sex Assigned at Date Recorded Not on file documented as of this encounter Plan of Treatment Not on filedocumented as of this encounter Visit Diagnoses Not on filedocumented in this encounter Care Teams Credit Adjuster Relationship Specialty Start Date End Date Flavia Guardado MD PCP - General Family Practice 08/05/[address] [address] documented as of this encounter
--- OUTSIDE RECORDS SUMMARY | 2022-09-12 10:40 | XMS_ITS | Encounter Summary ---
:1945 Author Organization [place] Address [address] [facility] [place] [address] Care Team Providers Name Role Phone Unavailable Primary Care Provider Unavailable Encounter Details Date Type Department Care Team Description 05/08/2015 Therapy Visit [facility] Pranav Rothman [facility] or Rehabilitation Services PT lumbosacral neuritis [facility] or radiculitis, [address] [place], [place] [address]TIC MEDICINE unspecified (Primary [address] [place]) [address] [place], [place] [phone] Social History Tobacco Use Types Packs/Day Years Used Date Smoking Tobacco: Never Assessed Sex Assigned at Date Recorded Not on file documented as of this encounter Progress Notes Jose Alberto Holm - 05/08/2015 3:25 PM CDT Subjective: Pertinent medical history includes: Asthma and migraines. Other surgeries include: Cancer surgery. Current medications: Other (cholesterol). Objective: System Physical Exam General ROS Assessment/Plan: Pranav Rothman, PT - 05/08/2015 2:31 PM CDT Subjective: Pt describes intermittent right calf pain and LBP. Began 4-6 weeks ago for unknown reasons. Had experienced LBP with left calf pain approximately 8 months ago. She received a cortizone injection in her back at that time and her pain had resolved. She also received an injection in her back 4 weeks ago, but did not receive benefit for the right LE pain. . Patient reports pain: Lower lumbar spine. Radiates to: Lower leg right. Pain is described as aching and is intermittent and reported as 4/10. Pain is worse during the night. Symptoms are exacerbated bystanding, sitting and walking and relieved by activity/movement and analgesics. Since onset symptomsare unchanged. Special tests: MRI (lumbar DDD). General health as reported by patient is good. Objective: Standing Alignment: Cervical/thoracic deviations alignment: Mild scoliosis. Physical Exam [place] Lumbar Evaluation Test Movements: FIS: During: no effect After: no effect Pretest Movements: No sxs Repeat FIS: During: no effect After: no effect EIS: During: no effect After: no effect Repeat EIS: During: no effect After: no effect NAHOMI: During: no effect After: no effect Repeat NAHOMI: During: produces After: worse EIL: During: no effect After: no effect Repeat EIL: During: abolishes After: better Conclusion: derangement Principle of Treatment: Extension: Yes ROS Assessment/Plan: Patient is a 70 year old female with lumbar complaints. Patient has the following significant findings with corresponding treatment plan. Diagnosis 1: Lumbar radiculopathy Pain - self management, education, directional preference exerciseand home program Decreased ROM/flexibility - manual therapy, therapeutic exercise and home program Decreased strength - therapeutic exercise, therapeutic activities and home program Previous and current functional limitations: (See Goal Flow Sheet for this information) Short term and supervisor intermediates goals: (See Goal Flow Sheet for this information) Communication ability: Patient appears to be able to clearly communicate and understand verbal and written communication and follow directions correctly. Treatment Explanation - The following has been discussed with the patient: RX ordered/plan of care Anticipated outcomes Possible risks and side effects This patient would benefit from PT intervention to resume normal activities. Rehab potential is good. Frequency: 1 X week, once daily Duration: for 4 weeks Discharge Plan: Achieve all LTG. Independent in home treatment program. Reach maximal therapeutic benefit. Please refer to the daily flowsheet for treatment today, total treatment time and time spent performing 1:1 timed codes. documented in this encounter Miscellaneous Notes Addendum Note - Pranav Rothman, PT - 05/16/2015 8:48 AM CDT Addended by: PRANAV ROTHMAN on: 05/16/2015 08:48 AM Modules accepted: Orders documented in this encounter Plan of Treatment Not on filedocumented as of this encounter Procedures Procedure Name Priority Date/Time Associated Diagnosis Comme [facility] THERAPEUTIC Routine 05/08/2015 2:50 PM Thoracic or lumbosa cral EXERCISES CDT neuritis or radiculitis, unspecified documented in this encounter Visit Diagnoses Diagnosis Thoracic or lumbosacral neuritis or radi culitis, unspecified - Primary documented in this encounter
--- OUTSIDE RECORDS SUMMARY | 2022-09-12 10:40 | XMS_ITS | Encounter Summary ---
:1945 Author Organization [place] Address [facility] [place] [address] Care Team Providers Name Role Phone Flavia Guardado MD Primary Care Provider [phone] Reason for Visit Reason Comments Other recs received from PCP- sent to chart prep for ov with dr adams in 09/12/16 [facility] Encounter Details Date Type Department Care Team Description 08/14/2016 Documentation Only [facility] Him Use Only, Oth er (recs received [facility] Yumi Barksdale Md For Event from PCP- sent to [address] [place] [address] [address] [place] [address] Social History Tobacco Use Types Packs/Day Years Used Date Smoking Tobacco: Never Assessed Sex Assigned at Date Recorded Not on file documented as of this encounter Plan of Treatment Not on filedocumented as of this encounter Visit Diagnoses Not on filedocumented in this encounter Care Teams Brick Setter Relationship Specialty Start Date End Date Flavia Guardado MD PCP - General Family Practice 08/05/[address] [address] documented as of this encounter
--- OUTSIDE RECORDS SUMMARY | 2022-09-12 10:40 | XMS_ITS | Encounter Summary ---
:1945 Author Organization [place] Address [address] [facility] [place] [address] Care Team Providers Name Role Phone Unavailable Primary Care Provider Unavailable Encounter Details Date Type Department Care Team Description 05/24/2015 Therapy Visit [facility] Pranav Rothman [facility] or Rehabilitation Services PT lumbosacral neuritis [facility] or radiculitis, [address] [place], [place] [address]TIC MEDICINE unspecified (Primary [address] [place]) [address] [place], [place] [phone] Social History Tobacco Use Types Packs/Day Years Used Date Smoking Tobacco: Never Assessed Sex Assigned at Date Recorded Not on file documented as of this encounter Progress Notes Pranav Rothman, PT - 07/07/2015 2:47 PM CDT Subjective: HPI Oswestry Score: 13.33 % Objective: System Physical Exam General ROS Assessment/Plan: DISCHARGE REPORT Progress reporting period is from 05/08/15 to 05/24/15 (3 visits). SUBJECTIVE Subjective changes noted by patient: Maegan was doing much better at her last visit on 05/24/15 and decided to discontinue PT. Her status at that visit was as follows: Subjective: Doing better. Less frequent pain in the right calf and resolves much quicker. Doing HEP 2 x/day. Current pain level is Current Pain level: 0/10. Previous pain level was Initial Pain level: 4/10. Changes in function: Yes (See Goal flowsheet attached for changes in current functional level) Adverse reaction to treatment or activity: None OBJECTIVE Changes noted in objective findings: The objective findings below are from DOS 05/24/15. Objective: No sxs today. Did all exercises without sxs. ASSESSMENT/PLAN Updated problem list and treatment plan: Diagnosis 1: LBP with right LE radiculopathy STG/LTGs have been met or progress has been made towards goals: Yes (See Goal flow sheet completed today.) Assessment of Progress: The patient's condition is improving. Self Management Plans: Patient has been instructed in a home treatment program. Anabel continues to require the following intervention to meet STG and LTG's: PT intervention is no longer required to meet STG/LTG. Recommendations: This patient is ready to be discharged from therapy and continue their home treatment program. Please refer to the daily flowsheet for treatment today, total treatment time and time spent performing 1:1 timed codes. documented in this encounter Miscellaneous Notes Addendum Note - Pranav Rothman PT - 07/07/2015 2:49 PM CDT Addended by: PRANAV ROTHMAN on: 07/07/2015 02:49 PM Modules accepted: Orders documented in this encounter Plan of Treatment Not on filedocumented as of this encounter Procedures Procedure Name Priority Date/Time Associated Diagnosis Comme [facility] THERAPEUTIC Routine 05/24/2015 12:26 PM Thoracic or lumbos acral EXERCISES CDT neuritis or radiculitis, unspecified documented in this encounter Visit Diagnoses Diagnosis Thoracic or lumbosacral neuritis or radi culitis, unspecified - Primary documented in this encounter
--- OUTSIDE RECORDS SUMMARY | 2022-09-12 10:40 | XMS_ITS | Encounter Summary ---
:1945 Author Organization [place] Address [address] [place] [address] Care Team Providers Name Role Phone Flavia Guardado MD Primary Care Provider [phone] Reason for Visit Reason Onset Date Comments Results 09/19/2016 HGB (09/19/16) Encounter Details Date Type Department Care Team Description 09/19/2016 Telephone [facility] [place], Results (HGB (09/19/16)) Clinic Yumi Chong RN [address] [address] Social History Tobacco Use Types Packs/Day Years Used Date Smoking Tobacco: Never Alcohol Use Standard Drinks/Week Comments Yes 0 (1 standard drink = 0.6 oz pure alcoho l) rare Sex Assigned at Date Recorded Not on file documented as of this encounter Miscellaneous Notes Telephone Encounter - Arlette Hannah RN - 09/19/2016 3:12 PM AUTO REPAIR SHOP MANAGER Contacted patient to discuss Hgb (09/19) results. I explained that the preliminary PFT results were back, however, the final report (dictated portion) is still pending. I told her we will contact her when the final results are back. I confirmed her upcoming appointment with on 10/24/16. REPAIR SHOP MANAGER documented in this encounter Plan of Treatment Not on filedocumented as of this encounter Visit Diagnoses Not on filedocumented in this encounter Care Teams Powder Compounder Relationship Specialty Start Date End Date Flavia Guardado MD PCP - General Family Practice 08/05/[address] [address] documented as of this encounter
--- OUTSIDE RECORDS SUMMARY | 2022-09-12 10:40 | XMS_ITS | Encounter Summary ---
:1945 Author Organization [place] Address [address] [place] [address] Care Team Providers Name Role Phone Flavia Guardado MD Primary Care Provider [phone] Reason for Visit Reason Onset Date Comments Results 09/20/2016 PFT Encounter Details Date Type Department Care Team Description 09/20/[address] [facility] Heart Viki Yuen, Results (PFT ) Clinic Monona RN [address] [facility] [address] [place] [address] Social History Tobacco Use Types Packs/Day Years Used Date Smoking Tobacco: Never Alcohol Use Standard Drinks/Week Comments Yes 0 (1 standard drink = 0.6 oz pure alcoho l) rare Sex Assigned at Date Recorded Not on file documented as of this encounter Miscellaneous Notes Telephone Encounter - Emilie Carlson DO - 09/26/2016 2:40 PM MECHANICAL MAINTENANCE Just have her f/u in clinic. Would like to know if inhaler works before ordering CTA ANICAL MAINTENANCE Telephone Encounter - Sommer Flores RN - 09/23/2016 4:06 PM CST Pt returned the call. She said she has not tried using the inhaler yet. She has not done much physical activity lately, but said she would try the inhaler prior to next time she does physical activity such as a walk. She has not noticed additional symptoms such as chest pain or pressure. No increased fatigue. Pt will call us if sx worsen and she is to f/u 10/[address] Carlson to discuss further testing. ANICAL MAINTENANCE Telephone Encounter - Viki Yuen RN - 09/20/2016 3:59 PM CST PFT results from 09/21/16 noted showing: INTERPRETATION: ?? 1. Mild obstruction ?? 2. Normal volumes ?? 3. Normal gas transfer ?? 4. Correlate clinically ?? I left message for pt to call back to review. Will find out if she has tried using her inhaler at all, and whether she has noticed improvement of her symptoms with its use. Per 's 09/12 OV note,I would also like her to try an inhaler before activities to see if this is helpful in reducing her symptoms at all.?? I will have her return to clinic with these pulmonary function tests and to see if the inhaler works.?? If not, we may pursue further testing for ischemia.?? I have suggested a CT coronary angiogram to look for coronary disease if her pulmonary tests come back unremarkable. Will send update to . Gustavo OLIVARES ANICAL MAINTENANCE documented in this encounter Plan of Treatment Not on filedocumented as of this encounter Visit Diagnoses Not on filedocumented in this encounter Care Teams Childcare Provider Relationship Specialty Start Date End Date Flavia Guadrado MD PCP - General Family Practice 08/05/16 [place] [address] documented as of this encounter
--- OUTSIDE RECORDS SUMMARY | 2022-09-12 10:40 | XMS_ITS | Encounter Summary ---
:1945 Author Organization [place] Address [address] [place] [address] Care Team Providers Name Role Phone Flavia Guardado MD Primary Care Provider [phone] Haley Gayle DO Unavailable Encounter Details Date Type Department Care Team Description 02/19/2021 Telephone [facility] Haley Ríos MD [place] [address] [facility] [address] [place] [address] [address] [place] [phone] Social History Tobacco Use Types Packs/Day Years Used Date Smoking Tobacco: Never Alcohol Use Standard Drinks/Week Comments Yes 0 (1 standard drink = 0.6 oz pure alcoho l) rare Sex Assigned at Date Recorded Not on file documented as of this encounter Plan of Treatment Not on filedocumented as of this encounter Visit Diagnoses Not on filedocumented in this encounter Care Teams Transit Operations Supervisor Relationship Specialty Start Date End Date Flavia Guardado MD PCP - General Family Practice 08/05/[address] [address] Haley Gayle DO Assigned PCP 02/01/21 [address] [place] [address] documented as of this encounter
--- OUTSIDE RECORDS SUMMARY | 2022-09-12 10:40 | XMS_ITS | Encounter Summary ---
:1945 Author Organization [place] Address [address] [place] [address] Care Team Providers Name Role Phone Flavia Guardado MD Primary Care Provider [phone] Haley Gayle DO Unavailable Reason for Visit Reason Comments Memory Loss Encounter Details Date Type Department Care Team Description 03/01/2021 Office Visit [facility] Haley Gayle Memo ry luz (Primary Clinic [place] DO Dx) [address], [address] [place] [address] [place], [place] [phone] (Wo rk) Social History Tobacco Use Types [...] / COVID-19? documented as of this encounter Last Filed [...] Mass Index 25.18 03/01/2021 9:36 AM CDT documented in this encounter Patient Instructions Patient InstructionsHaley Gayle DO - 03/01/2021 9:30 AM CDT I think you are likely dealing with normal age related memory changes but I will be more than happy to follow up with you annually to track this Taking notes is ok! Continue to keep your mind stimulated with things you enjoy such as socializing and puzzles We'll call around to find out more information about an open MRI of the brain and let you know documented in this encounter Progress Notes Haley Gayle DO - 03/01/2021 9:30 AM CDT [facility] - INITIAL EVALUATION HPI: Anabel Bradford is a 75yoF here today accompanied by her Thomas for initial consultation with concerns of slowly progressive impairment the past 3-5 years in: short/correction memory, word/namefinding difficulty, language difficulty and attention. She feels her friends are in the same boat and her is also followed by me for cognitive impairment and he doesn't add much to today's visit. She wanted eval because she is more and more concerned and because her mother had dementia. The things she forgets she often later remembers on her own and is benefited from cues/reminders. She does effectively write notes to herself which helps. Finds she has less attention to detail (ex: brother'snew glasses) and seems to take longer to process information than she used to. Takes Lexapro for anxiety and depression the past several years and very helpful. Social Hx (Employment/Schooling): Originally from [place] and went to [employer]. 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 to Thomas and has 2 children (1 biological). She enjoys gardening, puzzles and spreading felicity! PMH: Reviewed. Most notable for: Hyperlipidemia, Depression/anxiety treated with Lexapro Is there a h/o delirium, CVA/TIA, TBI, substances, parkinsonism?: None Family Hx: Mother Advanced directive: Yes but not on file; PCP is in [facility]. 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 Alert, pleasant, no acute distress, nicely dressed, appears stated age Mild hoarseness noted Mild head essential tremor Normal rapid alternating movements, no pronator drift Regular pulse Mood euthymic, slightly anxious Normal gait MoCA 28/30 (4, 3, 2, 1, 3, 2, 1, 2, 4, 6). One error on cube draw and on delayed recall. INVESTIGATIONS: Normal TSH and B12 in 2016, no known head imaging on file PRIOR TESTING: None COGNITIVE MEDICATIONS: On Lexapro for depression/anxiety ASSESSMENT/PLAN: Mrs. Anabel Bradford is a 75yoF with concerns of subtle progressive cognitive changes (memory, attention, language) but intact daily functioning. MoCA also within normal limits today. It seems she is likely dealing with normal changes associated with aging given the mild nature of these changes and how the things she has forgotten often come back to her as well as benefiting from cues/notes. Will get baseline MRI but she'd prefer an open MRI d/t claustrophobia; no implanted metal in her body. Discussed keeping her mind stimulated and continuing to follow over time for changes. Plan MoCA again in a year. Could consider future neuropsych testing but will hold off for now as MoCA was reassuring to her. Patient Instructions I think you are likely dealing with normal age related memory changes but I will be more than happy to follow up with you annually to track this Taking notes is ok! Continue to keep your mind stimulated with things you enjoy such as socializing and puzzles We'll call around to find out more information about an open MRI of the brain and let you know Follow up in 1 year or sooner if questions or concerns 56 minutes spent on the date of the encounter doing chart review, history and exam, MoCA testing, planning MRI orders, documentation and further activities as noted above Haley Gayle DO [facility] documented in this encounter Nursing Notes Roxi Hawk CMA - 03/01/2021 9:30 AM CDT Roxi Hawk CMA documented in this encounter Plan of Treatment Not on filedocumented as of this encounter Visit Diagnoses Diagnosis Memory loss - Primary documented in this encounter Care Teams Management Supervisor Relationship Specialty Start Date End Date Flavia Guardado MD PCP - General Family Practice 08/05/[address] [address] Haley Gayle DO Assigned PCP 02/01/21 [address] [place] [address] documented as of this encounter
--- OUTSIDE RECORDS SUMMARY | 2022-09-12 10:40 | XMS_ITS | Encounter Summary ---
:1945 Author Organization [place] Address [facility] [place] [address] Care Team Providers Name Role Phone Flavia Guardado MD Primary Care Provider [phone] Reason for Visit Reason Onset Date Comments Previsit 09/06/[address] Carlson 09/12/16 request for recent PMD notes/labs/procedure s Encounter Details Date Type Department Care Team Description 09/06/2016 Telephone [facility] Emilie Carlson sit (NEW patient Heart [facility] Yumi Palma DO for Dr. Carlson 09/12/16 [address] [facility] [address] [facility] S requ est for recent PMD [facility] [address] notes/labs/procedures [place] [phone] JAMES [place] [address] ) [phone] (Wo rk) Social History Tobacco Use Types Packs/Day Years Used Date Smoking Tobacco: Never Assessed Sex Assigned at Date Recorded Not on file documented as of this encounter Plan of Treatment Not on filedocumented as of this encounter Visit Diagnoses Not on filedocumented in this encounter Care Teams Boom Supervisor Relationship Specialty Start Date End Date Flavia Guardado MD PCP - General Family Practice 08/05/[address] [address] documented as of this encounter
--- OUTSIDE RECORDS SUMMARY | 2022-09-12 10:40 | XMS_ITS | Encounter Summary ---
:1945 Author Organization [place] Address [facility] [place] [address] Care Team Providers Name Role Phone Flavia Guardado MD Primary Care Provider [phone] Reason for Referral - Closed Specialty Diagnoses / Procedures Referred By Contact Refer red To Contact Diagnoses SOB (shortness of breath) Chest pain, unspecified type Daxa Carlson DO [address] [place] [address] Referral ID Status Reason Start Date Expiration Date Visits Requ ested Visits Authorized [id number] Closed 11/23/2016 11/23/2017 1 1 FLAP BINDER Reason for Visit Reason Comments Heart Problem Chest Heaviness - Closed Specialty Diagnoses / Procedures Referred By Contact Refer red To Contact Diagnoses SOB (shortness of breath) Chest pain, unspecified type Daxa Carlson DO [address] [place] [address] Referral ID Status Reason Start Date Expiration Date Visits Requ ested Visits Authorized [id number] Closed 10/12/2016 10/12/2017 1 1 Encounter Details Date Type Department Care Team Description [facility]/24[facility]2016 [facility] lipidemia LDL goal <100 (Primary Dx); [facility] Clinic DO Min[place]a SOB (shortness of breath); [place] [address] Chest pain, unspecified type [address] [facility] [address] [place] [address] [place], [place] [phone] [address] (Work) [phone] Social History Tobacco Use Types Packs/Day Years Used Date Smoking Tobacco: Never Alcohol Use Standard Drinks/Week Comments Yes 0 (1 standard drink = 0.6 oz pure alcoho l) rare Sex Assigned at Date Recorded Not on file documented as of this encounter Last Filed Vital Signs Vital Sign Reading Time Taken Comments Blood Pressure 125/67 10/24/2016 8:06 AM EAR FLAP BINDER Pulse 73 10/24/2016 8:06 AM EAR FLAP BINDER Temperature - - Respiratory Rate - - Oxygen Saturation - - Inhaled Oxygen Concentration - - Weight 68.7 kg (151 lb 8 oz) 10/24/2016 8:06 AM EAR FLAP BINDER Height 167.6 cm (5' 6) 10/24/2016 8:06 AM EAR FLAP BINDER Body Mass Index 24.45 10/24/2016 8:06 AM EAR FLAP BINDER documented in this encounter Progress Notes Daxa Carlson DO - 10/24/2016 8:33 AM CST HPI and Plan: See dictation Orders Placed This Encounter Procedures ??? CT Angiogram coronary artery ??? Follow-Up with Patient Accounts Manager No orders of the defined types were placed in this encounter. There are no discontinued medications. Encounter Diagnoses [...] History Diagnosis Date ??? Shortness of breath ??? Chest heaviness PAST SURGICAL HISTORY: No past surgical history [...] History Narrative Review of Systems: Skin: Negative dry skin Eyes: Positive for glasses ENT: Positive for sinus trouble;tinnitus seasonal sinus Respiratory: Positive for sleep apnea;CPAP Asthma Cardiovascular: Positive for;fatigue chest pressure Gastroenterology: Positive for Diverticulosis Genitourinary: Positive for urgency occ Musculoskeletal: Positive for back pain;joint pain;nocturnal cramping mild pain in back that comes and goes; right knee Neurologic: Positive for migraine headaches;headaches none recently Psychiatric: Positive for sleep disturbances taking Lexapro Heme/Lymph/Imm: Positive for allergies seasonal Endocrine: Negative Physical Exam: Vitals: BP 125/67 mmHg Pulse 73 Ht 1.676 m (5' 6) Wt 68.72 kg (151 lb 8 oz) BMI 24.46 kg/m2 Constitutional: cooperative, alert and oriented, well [...] time, person and place;no gross motor deficits CC Daxa Carlson DO [facility] [address] [place] [address] FLAP BINDER Sonya Carlsonance DO [place] - 10/24/2016 8:32 AM CST REFERRING PHYSICIAN: Bobbi Guardado MD HISTORY OF PRESENT ILLNESS: Ms. Mccauley is a pleasant 71-year-old female with a history of hyperlipidemia, chest pain and dyspnea on exertion as well as profound fatigue. She has undergone a stress test which did have some ECG abnormalities suggesting ischemia; however, the echocardiogram portion did not show any regional wall motion abnormalities. She underwent pulmonary function test to evaluate for possible pulmonary etiology. This was done on 09/19. She did show some mild obstruction but normal volumes and gas transfer. She has tried albuterol inhalers and not really noticed any benefit. She doeshave persistent symptoms of chest heaviness and dyspnea with exertion. PHYSICAL EXAMINATION: Today her blood pressure is 125/67, pulse is 73, weight 151 with a body mass index of 24. Her physical exam findings are otherwise unchanged. In summary, Ms. Mccauley is a very pleasant 71-year-old female with a history of hyperlipidemia and symptoms of chest heaviness and dyspnea with exertion. She has mild airway obstruction or mild asthma which likely cannot explain her ongoing symptoms. She did not receive any benefit with the albuterol inhaler. At this time, I recommend further ischemic testing and have recommended a CT coronary angiogram. I explained this procedure to her, its risks, benefits and alternatives and she is agreeable to proceed. We will schedule this in the near future and then I will follow up with the results. Please feel free to contact me with any questions you have in regard to her care. cc: Bobbi Guardado MD [facility] [address] [place] [address] DAXA CARLSON DO MT: JOSE RAUL Name: ANABEL MCCAULEY Account: [id number] : 1945 Service Date: 10/24/2016 Document: [id number] FLAP BINDER documented in this encounter Plan of Treatment Scheduled Referrals Name Type Priority Associated Diagnoses Order S chedule Follow-Up with Referral Routine SOB (shortness of Expected : 11/23/2016 Patient Accounts Manager breath) (Approximate), Chest pain, unspecified Expi res: 10/24/2017 type documented as of this encounter Results CT Angiogram coronary artery (11/07/2016 11:30 AM EAR FLAP BINDER) Anatomical Region Laterality Modality Cardio, SUBRAD CT BODY, UMP CT CHEST Com puted Tomography Specimen (Source) Anatomical Location Collection Method / Collectio n Time Received Time / Laterality Volume Impressions 11/07/2016 1:47 PM EAR FLAP BINDER IMPRESSION: 1. ??Minimal non-obstructive coronary ar roma disease. 2. ??Total Agatston score 50.31 placing the patient in the 57th percentile when compared to age and gend er matched control group. 3. ??Please review Radiology report for incidental noncardiac findings that will follow separately. FINDINGS: CORONARY CALCIUM SCORE Total Agatston calcium score: 50.31 Left main: 0.81 Left anterior descendin.85 Left circumflex: 0 Right coronary artery: 32.63 This places the patient in the 57th ??pe rcentile when compared to age and gender matched control group. CORONARY ANGIOGRAPHY DOMINANCE: Right dominant system. Normal coronary origins and course. LEFT MAIN: The left main arises normally from the l eft coronary cusp and is widely patent without any detectable michi nosis. LEFT ANTERIOR DESCENDING: Proximal LAD: Minimal (<25%) stenosis co mposed of calcified plaque. The remainder of the left anterior desce nding and its major diagonal branches are patent with minimal luminal irregularities. LEFT CIRCUMFLEX: The left circumflex and its major margin al branches are patent with minimal luminal irregularities RIGHT CORONARY ARTERY: Mid RCA: Minimal (<25%) stenosis compose d of mixed plaque. The remainder of the right coronary and the posterior descending artery are patent with minimal luminal i rregularities. ADDITIONAL FINDINGS: The proximal ascending aorta is normal i n size. Normal pulmonary venous anatomy with all four pulmonary veins draining into the left atrium. ?? There is no left ventricular mass or thr ombus. Normal pericardial thickness. There is n o pericardial effusion. Please review Radiology report for incid ental noncardiac findings that will follow separately. I have personally reviewed the examinati on and initial interpretation and I agree with the findings. MICHAEL FARR MD Narrative 11/07/2016 1:47 PM EAR FLAP BINDER Procedure: CTA ANGIOGRAM CORONARY ARTERY Examination Date: 11/07/2016 11:30 AM Indication: Shortness of breath, Chest p ain, unspecified Ordering Provider: DAXA LEE Overall quality of the study: Good. PROCEDURE: After obtaining informed cons ent, ??ECG gated multi-slice computed tomography of the heart ??with and without intravenous contrast ??(Isovue 370, 110 mL) was ??pe rformed on a Siemens Dual Source Flash scanner without incident. Beta-blo ckers were used to optimize heart rate (Metoprolol 100 mg Oral/ Meto prolol 30 mg IV). Sublingual Nitrostat 0.4 mg was given prior to scan dereck. Coronary artery calcium score was performed using the Flash scan ner protocol. CTA was performed in the sequential mode at a he art rate of 47 bpm with 100 kVp. Images were reconstructed and charlie zed on a [employer] workstation. Scan protocol was optimized to minimize radiation exposure. The total radiation exposure i ncluding calcium score was calculated to be 319 DLP, and 4.4 mSv. ? ? Procedure Note Madhavi, Michael Haywood MD - 11/07/2016Forma tting of this note might be different from the original. Procedure: CTA ANGIOGRAM CORONARY ARTERY Examination Date: 11/07/2016 11:30 AM Indication: Shortness of breath, Chest p ain, unspecified Ordering Provider: DAXA LEE Overall quality of the study: Good. PROCEDURE: After obtaining informed cons ent, ECG gated multi-slice computed tomography of the heart with an d without intravenous contrast (Isovue 370, 110 mL) was perfor med on a Siemens Dual Source Flash scanner without incident. Beta-blo ckers were used to optimize heart rate (Metoprolol 100 mg Oral/ Meto prolol 30 mg IV). Sublingual Nitrostat 0.4 mg was given prior to scan dereck. Coronary artery calcium score was performed using the Flash scan ner protocol. CTA was performed in the sequential mode at a he art rate of 47 bpm with 100 kVp. Images were reconstructed and charlie zed on a [employer] workstation. Scan protocol was optimized to minimize radiation exposure. The total radiation exposure i ncluding calcium score was calculated to be 319 DLP, and 4.4 mSv. IMPRESSION: 1. Minimal non-obstructive coronary ginger ry disease. 2. Total Agatston score 50.31 placing th e patient in the 57th percentile when compared to age and gend er matched control group. 3. Please review Radiology report for in cidental noncardiac findings that will follow separately. FINDINGS: CORONARY CALCIUM SCORE Total Agatston calcium score: 50.31 Left main: 0.81 Left anterior descendin.85 Left circumflex: 0 Right coronary artery: 32.63 This places the patient in the 57th perc entile when compared to age and gender matched control group. CORONARY ANGIOGRAPHY DOMINANCE: Right dominant system. Normal coronary origins and course. LEFT MAIN: The left main arises normally from the l eft coronary cusp and is widely patent without any detectable michi nosis. LEFT ANTERIOR DESCENDING: Proximal LAD: Minimal (<25%) stenosis co mposed of calcified plaque. The remainder of the left anterior desce nding and its major diagonal branches are patent with minimal luminal irregularities. LEFT CIRCUMFLEX: The left circumflex and its major margin al branches are patent with minimal luminal irregularities RIGHT CORONARY ARTERY: Mid RCA: Minimal (<25%) stenosis compose d of mixed plaque. The remainder of the right coronary and the posterior descending artery are patent with minimal luminal i rregularities. ADDITIONAL FINDINGS: The proximal ascending aorta is normal i n size. Normal pulmonary venous anatomy with all four pulmonary veins draining into the left atrium. There is no left ventricular mass or thr ombus. Normal pericardial thickness. There is n o pericardial effusion. Please review Radiology report for incid ental noncardiac findings that will follow separately. I have personally reviewed the examinati on and initial interpretation and I agree with the findings. MICHAEL FARR MD Daxa Carlson DO IMG CT ORDERABLES documented in this encounter Visit Diagnoses Diagnosis Hyperlipidemia LDL goal <100 - Primary Other and unspecified hyperlipidemia SOB (shortness of breath) Shortness of breath Chest pain, unspecified type SOB (shortness of breath) Shortness of breath Chest pain, unspecified type documented in this encounter Care Teams Strategic Buyer Relationship Specialty Start Date End Date Flavia Guardado MD PCP - General Family Practice 08/05/[address] [address] documented as of this encounter
--- OUTSIDE RECORDS SUMMARY | 2022-09-12 10:40 | XMS_ITS | Encounter Summary ---
:1945 Author Organization [place] Address [address] [place] [address] Care Team Providers Name Role Phone Flavia Guardado MD Primary Care Provider [phone] Haley Gayle DO Unavailable Reason for Visit Reason Onset Date Comments Appointment question. 02/19/2021 Scheduling mary anne n. Encounter Details Date Type Department Care Team Description 02/19/2021 [facility] Haley Gayle DO Appointment question. Clinic [address] (Scheduling question.) [address] [place] [address], [address] [place] [address] [place] [address] [phone] Social History Tobacco Use Types Packs/Day Years Used Date Smoking Tobacco: Never Alcohol Use Standard Drinks/Week Comments Yes 0 (1 standard drink = 0.6 oz pure alcoho l) rare Sex Assigned at Date Recorded Not on file documented as of this encounter Miscellaneous Notes Telephone Encounter - Rosa Garcia - 02/19/2021 1:38 PM CDT Pt is already scheduled and did not need any additional assistance. Telephone Encounter - Haley Gayle DO - 02/19/2021 12:47 PM CDT TCs, please follow up with Maegan to see what her question is. I do see her in memory clinic soit may actually be about him. Thanks! Telephone Encounter - Yonis Horner - 02/19/2021 12:03 PM CDT Reason for call: Scheduling issue. Phone number to reach patient: Cell number on file: Telephone Information: Best Time: anytime Can we leave a detailed message on this number? YES Travel screening: Not Applicable documented in this encounter Plan of Treatment Not on filedocumented as of this encounter Visit Diagnoses Not on filedocumented in this encounter Care Teams Customer Sales Service Manager Relationship Specialty Start Date End Date Flavia Guardado MD PCP - General Family Practice 08/05/[address] [address] Haley Gayle DO Assigned PCP 02/01/21 [address] [place] [address] documented as of this encounter
--- OUTSIDE RECORDS SUMMARY | 2022-09-12 10:40 | XMS_ITS | Encounter Summary ---
:1945 Author Organization [place] Address [facility] [place] [address] Care Team Providers Name Role Phone Flavia Guardado MD Primary Care Provider [phone] Reason for Visit (Routine) - Closed Specialty Diagnoses / Procedures Referred By Contact Refer red To Contact Respiratory Therapy Diagnoses I schedule PFT's w/Tanesha at [facility] Cardiop. Pt will check in at 10:15 at [facility] Application Development Consultant. nkf 09/12 PFT Rh Respiratory Ther Procedures PULMONARY FUNCTION TEST [address] [place] [address] Phone: Referral ID Status Reason Start Date Expiration Date Visits Requ ested Visits Authorized [id number] Closed 09/18/2016 09/18/2017 1 1 Encounter Details Date Type Department Care Team Description 09/19/[address] [facility] Emilie Carlson SOB (shortness of breath); [facility] Minerva, DO Chest pain, unspecified type Therapy [address] [place] [phone] Social History Tobacco Use Types Packs/Day Years [...] tablet daily documented as of this encounter Progress Notes Yoon Velazco RT - 09/19/2016 11:19 AM CST PFT Note: Patient completed pulmonary function testing with spirometry, lung volumes and diffusion. Good patient effort and cooperation. The results of this test met the ATS standards for acceptabilityand repeatability. ONKEEPER documented in this encounter Procedure Notes Nicole Layton MD - 09/19/2016 11:16 AM CSTAssociated Order(s): PFT GENERAL LAB TESTING Please see medical chart for graphs and statistics related to this report. REFERRING PHYSICIAN: Emilie Carlson CLINICAL RESEARCH SPEC: Yoon Velazco DIAGNOSIS: dyspnea on exertion HEIGHT: 66 WEIGHT: 150 lbs DYSPNEA: after severe exertion COUGH: productive WHEEZE: rare TOBACCO PROD: never smoked MEDICATIONS: Albuterol PRN POST-TEST COMMENTS: Good patient effort and cooperation. The results of the test meet the ATS criteria for acceptability and reproducibility. The FVC maneuver contained coughing, particularly during the first second, which may affect the validity of the FEV1 results and other flow parameters. INTERPRETATION: 1. Mild obstruction 2. Normal volumes 3. Normal gas transfer 4. Correlate clinically NICOLE LAYTON MD MT: Name: ANABEL MCCAULEY MRN: [id number] Account: [id number] : 1945 Procedure Date: 09/19/2016 Document: [id number] cc: Emilie Ash MD ONKEEPER documented in this encounter Plan of Treatment Pending Results Name Type Priority Associated Diagnoses Date/Ti mt General PFT Lab PFT Routine SOB (shortness o f breath) 09/19/2016 10:26 AM SALOONKEEPER (Please always keep Chest pain, unspecifi ed checked) type Scheduled Orders Name Type Priority Associated Diagnoses Order S chedule Pulmonary Function Test PFT Routine SOB (shortness of 1 Occurrences starting breath) 09/19/2016 until Chest pain, unspecified 09/10 type documented as of this encounter Procedures Procedure Name Priority Date/Time Associated Diagnosis Comme nts PFT GENERAL LAB 12/04/2016 3:15 PM Result s for this TESTING SALOONKEEPER procedure are i n the results section. PFT GENERAL LAB Routine 09/19/2016 10:26 AM SOB (shortness of TESTING SALOONKEEPER breath) Chest pain, unspecified type documented in this encounter Results PFT GENERAL LAB TESTING (12/04/2016 3:15 PM SALOONKEEPER) Transcriptions Nicole Layton MD - 09/19/2016 11:16 A M CST Please see medical chart for graphs and statistics related to this report. REFERRING PHYSICIAN: Emilie Carlson CLINICAL RESEARCH SPEC: Yoon Velazco DIAGNOSIS: dyspnea on exertion HEIGHT: 66 WEIGHT: 150 lbs DYSPNEA: after severe exertion COUGH: pr oductive WHEEZE: rare TOBACCO PROD: never smoked MEDICATIONS: Albuterol PRN POST-TEST COMMENTS: Good patient effort and cooperation. The results of the test meet the ATS criteria for acceptability and reproducibility. The FVC maneuver contained coughing, particularly during the first second, which may affect the validity of the FEV 1 results and other flow parameters. INTERPRETATION: 1. Mild obstruction 2. Normal volumes 3. Normal gas transfer 4. Correlate clinically NICOLE LAYTON MD MT: Name: AANBEL MCCAULEY MRN: [id number] Account: [id number] : 1945 Procedure Date: 09/19/20 Document: [id number] cc: Emilie Ash MD Nicole Layton MD PFT ORDERABLES documented in this encounter Visit Diagnoses Diagnosis SOB (shortness of breath) Shortness of breath Chest pain, unspecified type documented in this encounter Care Teams Dust Mop Maker Relationship Specialty Start Date End Date Flavia Guardado MD PCP - General Family Practice 08/05/[address] [address] documented as of this encounter
--- OUTSIDE RECORDS SUMMARY | 2022-09-12 10:40 | XMS_ITS | Encounter Summary ---
:1945 Author Organization [place] Address [facility] [place] [address] Care Team Providers Name Role Phone Flavia Guardado MD Primary Care Provider [phone] Encounter Details Date Type Department Care Team Description 09/19/2016 Orders Only [facility] Emilie Carlson SOB ( shortness of [place] [facility] [place]a, DO breath) (Primary Dx) Therapy [address] [place] [address] [phone] Social History Tobacco Use Types Packs/Day Years Used Date Smoking Tobacco: Never Alcohol Use Standard Drinks/Week Comments Yes 0 (1 standard drink = 0.6 oz pure alcoho l) rare Sex Assigned at Date Recorded Not on file documented as of this encounter Plan of Treatment Not on filedocumented as of this encounter Results Hemoglobin (09/19/2016 11:25 AM FUEL INJECTION SERVICER) athologist Signature Hemoglobin 13.7 11.7 - 15.7 [facility] g/dL HOSPITAL Specimen Anatomical Collection Method Collection Time Receive d Time (Source) Location / / Volume Laterality Blood specimen 09/19/2016 11:25 6 (specimen) AM FUEL INJECTION SERVICER 11:26 AM FUEL INJECTION SERVICER Emilie Carlson DO LAB - BLOOD ORDERABLES Performing Organization Address City/State/ZIP Code Phon e Number M [facility] [address] [place], [place] [address] [facility] [address] [place], [place] [address] [phone] documented in this encounter Visit Diagnoses Diagnosis SOB (shortness of breath) - Primary Shortness of breath documented in this encounter Care Teams Senior Business Broker Relationship Specialty Start Date End Date Flavia Guardado MD PCP - General Family Practice 08/05/[address] [address] documented as of this encounter
--- OUTSIDE RECORDS SUMMARY | 2022-09-12 10:40 | XMS_ITS | Encounter Summary ---
:1945 Author Organization [place] Address [address] [facility] [place] [address] Care Team Providers Name Role Phone Flavia Guardado MD Primary Care Provider [phone] Reason for Visit (Routine) - Closed Specialty Diagnoses / Procedures Referred By Contact Refer red To Contact Cardiology Diagnoses per Dr Carlson, SOB, Chest pain, unspecified type, wt:151, [employer] [place]/Medicare, gave pt prep. Pt will check in at 12:[address]. I gave pt directions to our [place] office. appt r/s from 10/31 by pt. Radcon done nkf 10/[address] CORONARY ARTERY ANGIO [address] [facility] [address] [place] [address] Phone: Referral ID Status Reason Start Date Expiration Date Visits Requ ested Visits Authorized [id number] Closed 11/01/2016 11/01/2017 1 1 Encounter Details Date Type Department Care Team Description 11/07/2016 Hospital Encounter [facility] Emilie Carlson SOB (shortness of breath); [facility] DO Minerva Chest pain, unspecified type Heart Care [address] [facility] [address] [facility] [address] [place] [address] [address] [place] (Work) [address] [phone] Social History Tobacco Use Types Packs/Day Years Used Date Smoking Tobacco: Never Alcohol Use Standard Drinks/Week Comments Yes 0 (1 standard drink = 0.6 oz pure alcoho l) rare Sex Assigned at Date Recorded Not on file documented as of this encounter Last Filed Vital Signs Vital Sign Reading Time Taken Comments Blood Pressure 132/73 11/07/2016 9:51 AM DITCH DIGGER Pulse - - Temperature - - Respiratory Rate - - Oxygen Saturation - - Inhaled Oxygen Concentration - - Weight - - Height - - Body Mass Index - - documented in this encounter Medications at Time of Discharge [...] Name Priority Date/Time Associated Diagnosis Comme nts CTA ANGIOGRAM Routine 11/07/2016 11:30 SOB (shortness of Resul ts for this CORONARY ARTERY AM DITCH DIGGER breath) procedure are in Chest pain, the results unspecified type section. RADIOLOGIST CONSULT Routine 11/07/2016 11:30 SOB (shortness of Results for this FOR CARDIOLOGY AM DITCH DIGGER breath) procedure are in Chest pain, the results unspecified type section. ISTAT CREATININE Routine 11/07/2016 10:42 SOB (shortness of Re sults for this POCT AM DITCH DIGGER breath) procedure are i n the results section. documented in this encounter Results Radiologist Consult For Cardiology (11/07/2016 11:30 AM DITCH DIGGER) Anatomical Region Laterality Modality Computed Tomography Specimen (Source) Anatomical Location Collection Method / Collectio n Time Received Time / Laterality Volume Narrative 11/07/2016 5:21 PM DITCH DIGGER RADIOLOGIST CONSULT FOR CARDIOLOGY 11/07/2016 11:30 AM HISTORY: 71-year-old patient with chest pain and shortness of breath. COMPARISON: None. TECHNIQUE: Multiplanar, multiformatted C TA images were obtained through the heart before and after the u neventful administration of Isovue-370 intravenous contrast, given f or a total of 110 mL. FINDINGS: Please note this report will f ocus on soft tissue findings. Please see separate report for all cardi ac and vascular findings. No abnormally enlarged mediastinal lymph nodes. The visible solid organs are unremarkable. No acute osseou s abnormality. No pulmonary masses. MICHAEL ALBA MD Procedure Note Michael Alba MD - 11/07/2016 RADIOLOGIST CONSULT FOR CARDIOLOGY 11/07 11:30 AM HISTORY: 71-year-old patient with chest pain and shortness of breath. COMPARISON: None. TECHNIQUE: Multiplanar, multiformatted C TA images were obtained through the heart before and after the u neventful administration of Isovue-370 intravenous contrast, given f or a total of 110 mL. FINDINGS: Please note this report will f ocus on soft tissue findings. Please see separate report for all cardi ac and vascular findings. No abnormally enlarged mediastinal lymph nodes. The visible solid organs are unremarkable. No acute osseou s abnormality. No pulmonary masses. MICHAEL ALBA MD Emilie Minerva Carlson DO IMG DIAGNOSTIC IMAGING OR DERABLES CT Angiogram coronary artery (11/07/2016 11:30 AM DITCH DIGGER) Anatomical Region Laterality Modality Cardio, SUBRAD CT BODY, UMP CT CHEST Com puted Tomography Specimen (Source) Anatomical Location Collection Method / Collectio n Time Received Time / Laterality Volume Impressions 11/07/2016 1:47 PM DITCH DIGGER IMPRESSION: 1. ??Minimal non-obstructive coronary ar roma [...] and I agree with the findings. MICHAEL HENDRICKSON MD Narrative 11/07/2016 1:47 PM DITCH DIGGER Procedure: CTA ANGIOGRAM CORONARY ARTERY Examination Date: 11/07/2016 11:30 AM Indication: Shortness of breath, Chest p ain, unspecified Ordering Provider: EMILIE LEE Overall quality of the study: Good. [...] were reconstructed and charlie zed on a [employer] workstation. Scan protocol was optimized to minimize radiation exposure. The total radiation exposure i ncluding calcium score was calculated to be 319 DLP, and 4.4 mSv. ? ? Procedure Note Michael Hendrickson MD - 11/07/2016Forma tting of this note might be different from the original. Procedure: CTA ANGIOGRAM CORONARY ARTERY Examination Date: 11/07/2016 11:30 AM Indication: Shortness of breath, Chest p ain, unspecified Ordering Provider: EMILIE LEE Overall quality of the study: Good. [...] were reconstructed and charlie zed on a [employer] workstation. Scan protocol was optimized to minimize [...] and I agree with the findings. MICHAEL HENDRICKSON MD Emilie Carlson DO IMG CT ORDERABLES Creatinine POCT (11/07/2016 10:42 AM DITCH DIGGER) P athologist Signature Creatinine 0.8 0.52 - POINT OF CARE 1.04 mg/dL TEST, HANDHELD METER GFR Estimate 71 >60 POINT OF CARE mL/min/1.7 TEST, HANDHELD m2 METER GFR Estimate If 86 >60 POINT OF CARE Black mL/min/1.7 TEST, HANDHELD m2 METER Specimen Anatomical Collection Method Collection Time Receive d Time (Source) Location / / Volume Laterality 11/07/2016 10:42 11/07/2016 AM DITCH DIGGER 10:51 AM DITCH DIGGER Emilie Carlson DO LAB - BEAKER POCT Performing Organization Address City/State/ZIP Code Phon e Number [facility] POINT OF CARE TEST, HANDHELD METER POINT OF CARE TEST, HANDHELD METER documented in this encounter Visit Diagnoses Diagnosis SOB (shortness of breath) Shortness of breath Chest pain, unspecified type documented in this encounter Administered Medications Inactive Administered Medications - up to 3 most recent administrations Medication Order MAR Action Action Date Dose Rate Site iopamidol (ISOVUE-370) solution Given 11/07/2016 11:30 AM DITCH DIGGER 11 0 mLs 50-150 mL 50-150 mL, Intravenous, ONCE, On Rosa 11/07/16 at 1100, For 1 dose metoprolol (LOPRESSOR) injection 5-15 mg Given 11/07/2016 11:15 AM DITCH DIGGER 10 mg 5-15 mg, Intravenous, EVERY 3 MIN PRN, other, during procedure for maintaining heart rate less than 60 bpm.?MAX total dose = 40 mg., Starting on Rosa 11/07/16 at 0938, May give every 3 minutes, as needed during the procedure as verbally directed by provider. Vital signs to be monitored during the administration of the drug. HOLD for systolic blood pressure less than 90 mmHg. Dose to be given by CT nursing staff. Discontinue after procedure., Cardiac Intra-procedure Given 11/07/2016 11:12 AM DITCH DIGGER 10 mg Given 11/07/2016 11:09 AM DITCH DIGGER 10 mg metoprolol (LOPRESSOR) tablet 50-100 mg Given 11/07/2016 9:51 AM DITCH DIGGER 100 mg 50-100 mg, Oral, ONCE PRN, for patients in whom the heart rate is 55 bpm or greater and systolic blood pressure greater than 90 mm Hg, Starting on Rosa 11/07/16 at 0938, For 1 dose, If patient has not received metoprolol prior to the procedure. - 50 mg if heart rate is 55-59 bpm and systolic blood pressure greater than 90 mmHg - 100 mg if heart rate is 60 bpm or greater and systolic blood pressure greater than 90 mmHg HOLD for systolic blood pressure less than 90 mmHg. Give one hour PRIOR to procedure. Dose to be given by CT nursing staff. Discontinue after procedure., Cardiac Intra-procedure nitroglycerin (NITROSTAT) sublingual tablet Given 10/11 10:02 AM DITCH DIGGER 0.4 mg 0.4 mg 0.4 mg, Sublingual, EVERY 15 MIN PRN, other, Administer the first dose when the patient is on the table just before starting CT scan., Starting on Rosa 11/07/16 at 0938, For 2 doses, If there is a delay in the procedure, administer a second dose if necessary 15 minutes after the initial dose IF directed by the provider prior to the start of the exam. Hold for systolic blood pressure less than 90 mmHg - notify provider. Notify provider prior to giving medication if patient has a history of severe aortic stenosis., Cardiac Intra-procedure sodium chloride (PF) 0.9% PF flush 10-100 Given 11/07/2016 1 1:30 AM DITCH DIGGER 100 mLs mL 10-100 mL, Intravenous, ONCE, On Rosa 11/07/16 at 1100, For 1 dose documented in this encounter Care Teams Meat Grader Relationship Specialty Start Date End Date Flavia Guardado MD PCP - General Family Practice 08/05/[address] [address] documented as of this encounter
--- OUTSIDE RECORDS SUMMARY | 2022-09-12 10:40 | XMS_ITS | Encounter Summary ---
:1945 Author Organization [place] Address [address] [place] [address] Care Team Providers Name Role Phone Unavailable Primary Care Provider Unavailable Encounter Details Date Type Department Care Team Description 12/30/2003 Emergency room Lissa Quiñonez EMERGENCY PHYSIC [place] [address] [place] [address] (Wo rk) Social History Tobacco Use Types Packs/Day Years Used Date Smoking Tobacco: Never Assessed Sex Assigned at Date Recorded Not on file documented as of this encounter ED Notes Lissa Quiñonez - 12/30/2003 12:00 AM CLAM TREADER : 45 CHIEF COMPLAINT: Nausea and vomiting. HISTORY OF PRESENT ILLNESS: The patient is a 58-year-old female, who has had some vomiting since about 0100 hours. She vomited 6-8 times and had some abdominal discomfort after the vomiting. No urinary problems, no diarrhea. She's also developed a bit of a headache after the vomiting. No other complaints at this time; no fever or chills; no cough and no chest pain. PAST MEDICAL HISTORY: High cholesterol, right shoulder surgery and hysterectomy, asthma. SOCIAL HISTORY: Occasional alcohol, no tobacco. FAMILY HISTORY: Noncontributory. REVIEW OF SYSTEMS: Negative, except for what's listed in the HPI. MEDICATIONS: None. ALLERGIES: No known drug allergies. PHYSICAL EXAMINATION: General - the patient is alert and cooperative. Vitals - blood pressure 137/79, pulse 116, respiratory rate 16, temperature 97.3, O2 sats 98% on room air. HEENT - head atraumatic, normocephalic; pupils equal, round, reactive to light; EOMs intact; oropharynx pink, moist intact, no lesions noted. External auditory canals without drainage.NECK supple, full range of motion noted. CARDIOVASCULAR - tachycardic rate and rhythm, S1 and S2 are normal. PULMONARY - clear bilaterally; no rhonchi or wheezes present. ABDOMEN - soft, positive bowel sounds with palpation. EXTREMITIES - normal strength, normal range of motion, pulses full and symmetric, sensation appears normal. NEUROLOGIC -cranial nerves II-XII appear grossly intact. SKIN pink, warm and dry. ED COURSE: The patient is given IV normal saline 1 liter during the ED stay and Zofran mg IV. Her discomfort, nausea and vomiting were resolved. She continued to have a mild headache. LABORATORY: Basic metabolic panel within normal limits. Urinalysis is negative. I spoke with the patient and she would like to try to take some home medications to try to get rid of the headache. DIAGNOSIS: Nausea, improved; vomiting, resolved; abdominal pain, improved; headache, improved; probably all secondary to acute viral syndrome. PLAN: The patient is discharged home. Follow-up with primary care provider in 3-5 days. Fluids, Reglan 10 mg po q6-8h for nausea, Tylenol #3 for discomfort. Return to the Emergency Department if symptoms get worse. [id number] _ LISSA QUIÑONEZ MD [place]: Document: [id number] [place], [place] Name: ANABEL MCCAULEY EMERGENCY ROOM ENCOUNTER Page 2 of 2 TRINITYN: ERB DSC: 12/30/2003 [place], [place] Name: MR#: : Admit Date: ANABEL MCCAULEY [id number] 1945 12/30/2003 Doctor: LISSA QUIÑONEZ MD EMERGENCY ROOM ENCOUNTER Page 1 of 2 documented in this encounter Plan of Treatment Not on filedocumented as of this encounter Visit Diagnoses Not on filedocumented in this encounter
--- OUTSIDE RECORDS SUMMARY | 2022-09-12 10:40 | XMS_ITS | Encounter Summary ---
:1945 Author Organization [place] Address [address] [place] [address]. [place] [address] Care Team Providers Name Role Phone Unavailable Primary Care Provider Unavailable Encounter Details Date Type Department Care Team Description 05/17/2015 Therapy Visit [facility] Pranav Rothman Thora cic or Rehabilitation Services PT lumbosacral neuritis [facility] or radiculitis, [address] [place] [address] ATHLETIC MEDICINE unspecified (Primary [place] [address] [place] [address] Dx) [address] [place], [place] [phone] [address] Social History Tobacco Use Types Packs/Day Years Used Date Smoking Tobacco: Never Assessed Sex Assigned at Date Recorded Not on file documented as of this encounter Plan of Treatment Not on filedocumented as of this encounter Procedures Procedure Name Priority Date/Time Associated Diagnosis Comme [facility] THERAPEUTIC Routine 05/17/2015 3:17 PM Thoracic or lumbosa cral EXERCISES CDT neuritis or radiculitis, unspecified documented in this encounter Visit Diagnoses Diagnosis Thoracic or lumbosacral neuritis or radi culitis, unspecified - Primary documented in this encounter
--- OUTSIDE RECORDS SUMMARY | 2022-09-12 10:40 | XMS_ITS | Encounter Summary ---
:1945 Author Organization [place] Address [address] [facility] [place] [address] Care Team Providers Name Role Phone Flavia Guardado MD Primary Care Provider [phone] Encounter Details Date Type Department Care Team Description 09/12/2016 Orders Only [facility] Emilie Carlson SOB ( shortness of breath) (Primary Dx); [facility] Respiratory Minerva, DO Chest pain, unspecified type Therapy [address] [place] [phone] Social History Tobacco Use Types Packs/Day Years Used Date Smoking Tobacco: Never Alcohol Use Standard Drinks/Week Comments Yes 0 (1 standard drink = 0.6 oz pure alcoho l) rare Sex Assigned at Date Recorded Not on file documented as of this encounter Plan of Treatment Pending Results Name Type Priority Associated Diagnoses Date/Ti me General PFT Lab PFT Routine SOB (shortness o f breath) 09/19/2016 10:26 AM BREADING MACHINE TENDER (Please always keep Chest pain, unspecifi ed checked) type Scheduled Orders Name Type Priority Associated Diagnoses Order S chedule Pulmonary Function Test PFT Routine SOB (shortness of 1 Occurrences starting breath) 09/12/2016 until Chest pain, unspecified 01/2017 type documented as of this encounter Visit Diagnoses Diagnosis SOB (shortness of breath) - Primary Shortness of breath Chest pain, unspecified type documented in this encounter Care Teams Clinical Psychologist Relationship Specialty Start Date End Date Flavia Guardado MD PCP - General Family Practice 08/05/[address] [address] documented as of this encounter
--- OUTSIDE RECORDS SUMMARY | 2022-09-12 10:42 | XMS_ITS | Encounter Summary ---
:1945 Author Organization [facility] Address [address] [place] [address] Care Team Providers Name Role Phone Unavailable Primary Care Provider Unavailable Encounter Details Date Type Department Care Team Description 12/14/2020 Travel Social History Tobacco Use Types Packs/Day Years Used Date Smoking Tobacco: Never Assessed Sex Assigned at Date Recorded Not on file COVID-19 Exposure Response Date Recorded In the last month, have you been in contact Unable to assess 12/14/2020 5:17 PM PST with someone who was confirmed or suspected to have Coronavirus / COVID-19? documented as of this encounter Plan of Treatment Not on filedocumented as of this encounter Visit Diagnoses Not on filedocumented in this encounter
--- OUTSIDE RECORDS SUMMARY | 2022-09-12 10:42 | XMS_ITS ---
:1945 Author Care Team Providers Name Role Phone AKASH RUSHING MD Primary Care Provider [phone] Allergies Code Code System Name Reaction Severity Status Onset 8640 RxNorm Prednisone Vomiting ? Active ? Medications Name Status Start Date Stop Date ? ? albuterol sulfate HFA 90 mcg/actuation aerosol inhaler Active ? Not available cholecalciferol (vitamin D3) 25 mcg (1,000 unit) tablet Active ? Not available TAKE 1 TABLET BY MOUTH DAILY escitalopram 10 mg tablet Active ? Not av ailable TAKE 1 TABLET BY MOUTH ONCE DAILY lansoprazole 30 mg capsule,delayed release Completed ? 05/15/2021 TAKE 1 CAPSULE BY MOUTH ONCE DAILY methocarbamol 500 mg tablet Completed ? 04/2021 TAKE 1 TABLET BY MOUTH 4 TIMES DAILY NEEDED nystatin-triamcinolone 100,000 unit/g-0.1 % topical cream Active ? Not available APPLY CREAM TOPICALLY TO RASH TWICE DAILY FOR 10 DAYS THEN N EEDED omeprazole 40 mg capsule,delayed release Active ? Not available rosuvastatin 10 mg tablet Active ? Not av ailable TAKE 1 TABLET BY MOUTH ONCE DAILY rosuvastatin 5 mg tablet Completed ? 021 TAKE 1 TABLET BY MOUTH DAILY Problems Name Status Onset Date Source ? Overactive Bladder Active 10/20/2018 History Procedures None recorded. Results Lab Results Date Name Specimen Result Interpretation Description Value Range Status Address ? 01/15/2022 Urinalysis, Dipstick ? Color-Status Yellow ? Clarity-Status Clear ? Glucose-Status Negative ? Bilirubin-Status Negative ? Ketones-Status ? Nitrates-Status negative ? Blood-Status Trace ? Leuko-Status Small ? Total Urine Volume 20cc ? ? 01/15/2022 Urinalysis, Dipstick ? No observation ? ? ? recorded. 05/15/2021 Urinalysis, Dipstick ? No observation ? ? ? recorded. ? Urinalysis, Dipstick ? pH-Status 7.0 ? Nitrates-Status negative ? Blood-Status Negative ? Leuko-Status Negative ? ? Past Encounters 01/15/2022 Chronic Cystitis; Overactive Bladder Nori Easley MD: [address] [facility] [place] [address], Ph. 05/15/2021 Overactive Bladder; Bladder Polyp Nori Easley MD: [address] [place] [address], Ph. Social History Tobacco Smoking Status Never Smoker Vaccine List Vaccine Type pneumococcal polysaccharide PPV23 08/10/2017 Plan of Care Reminders Provider Appointments None recorded. ? ? Lab None recorded. ? ? Referral None recorded. ? ? Procedures None recorded. ? ? Surgeries None recorded. ? ? Imaging None recorded. ? ? Vitals 01/15/2022 10:40AM ESTABLISHED 10 Height Weight BMI 5 ft 6 in 156 lbs 25.2 kg/m2 05/15/2021 11:10AM ESTABLISHED 10 Height Weight BMI 5 ft 6 in 156 lbs 25.2 kg/m2
--- OUTSIDE RECORDS SUMMARY | 2022-09-12 10:42 | XMS_ITS | Clinical Summary ---
:1945 Author Organization [facility] Address [facility] [address] [place] [address] Care Team Providers Name Role Phone Unavailable Primary Care Provider Unavailable Source Comments PLEASE NOTE, if this patient is a minor, it may be UNLAWFUL to discuss sensitive information that iscontained in these records (such as FAMILY PLANNING, MENTAL HEALTH or SUBSTANCE ABUSE) with the minor patient's parent or other person without the patient's specific authorization.[facility] Social History Tobacco Use Types Packs/Day Years Used Date Smoking Tobacco: Never Assessed Sex Assigned at Date Recorded Not on file Plan of Treatment Not on file
[2022-09-12 13:55] LABS: Cholesterol* 157 mg/dL (90-199)
[2022-09-12 13:56] LABS: HDL Cholesterol* 48 mg/dL (>=50); LDL Cholesterol Calculated 76 mg/dL (<100); Triglycerides* 165 mg/dL (40-149)
== END 2022-09-12 10:16 | disposition home or self-care (01) ==
LOC: NFLDREF 10:18
PROVIDERS: PCP Family Medicine; Visit Provider Internal Medicine
DX: E78.5 Hyperlipidemia, unspecified (principal)
CPT/HCPCS: 80061

== ENCOUNTER 2022-09-12 11:18 | Outpatient (CLI) | payer MEDICARE, SELFPAY ==
--- OUTSIDE RECORDS SUMMARY | 2022-09-12 11:21 | XMS_ITS | Clinical Summary ---
:1945 Author Organization [facility] [place] [address] Care Team Providers Name Role Phone Flavia Guardado MD Primary Care Provider [phone] Allergies Active Allergy Reactions Severity Noted [...] Group MEDICARE PART B MEDICARE PART B [id number] 2010-Present ATTN: CLAIMS - HB USE ONLY HB ONLY [address] [facility] [place] [address] [facility] MEDICARE [id number] 2019-Present [address] [place] [address] Care Teams Labor Employment Associate Relationship Specialty Start Date End Date Flavia Guardado MD PCP - General Family Practice 08/05/161999 [place] [address]
--- OUTSIDE RECORDS SUMMARY | 2022-09-12 11:22 | XMS_ITS | Encounter Summary ---
:1945 Author Organization [place] Address [facility] [facility] [place] [address] Care Team Providers Name Role Phone Flavia Guardado MD Primary Care Provider [phone] Encounter Details Date Type Department Care Team Description 09/19/2016 Orders Only [facility] Emilie Carlson SOB ( shortness of [place] Respiratory Minerva, DO breath) (Primary Dx) Therapy [address] [place] [address] [phone] Social History Tobacco Use Types Packs/Day Years Used Date Smoking Tobacco: Never Alcohol Use Standard Drinks/Week Comments Yes 0 (1 standard drink = 0.6 oz pure alcoho l) rare Sex Assigned at Date Recorded Not on file documented as of this encounter Plan of Treatment Not on filedocumented as of this encounter Results Hemoglobin (09/19/2016 11:25 AM SERVICE SUPERVISOR) athologist Signature Hemoglobin 13.7 11.7 - 15.7 [facility] g/dL HOSPITAL Specimen Anatomical Collection Method Collection Time Receive d Time (Source) Location / / Volume Laterality Blood specimen 09/19/2016 11:25 6 (specimen) AM SERVICE SUPERVISOR 11:26 AM SERVICE SUPERVISOR Emilie Carlson DO LAB - BLOOD ORDERABLES Performing Organization Address City/State/ZIP Code Phon e Number [facility] [address] [place], [place] [address] [facility] [address] [place], [place] [address] [facility] [phone] documented in this encounter Visit Diagnoses Diagnosis SOB (shortness of breath) - Primary Shortness of breath documented in this encounter Care Teams Certified Low Vision Therapist Relationship Specialty Start Date End Date Flavia Guardado MD PCP - General Family Practice 08/05/[address] [address] documented as of this encounter
--- OUTSIDE RECORDS SUMMARY | 2022-09-12 11:22 | XMS_ITS | Encounter Summary ---
:1945 Author Organization [place] Address [address] [facility] [place] [address] Care Team Providers Name Role Phone Flavia Guardado MD Primary Care Provider [phone] Reason for Visit (Routine) - Closed Specialty Diagnoses / Procedures Referred By Contact Refer red To Contact Cardiology Diagnoses per Dr Carlson, SOB, Chest pain, unspecified type, wt:151, BCBS [place]/Medicare, gave pt prep. Pt will check in at 12:45 on [address]. I gave pt directions to our [place] office. appt r/s from 10/31 by pt. [place] done nkf 10/[address] CORONARY ARTERY ANG[place] [address] [facility] [address] [place] [address] Phone: Referral ID Status Reason Start Date Expiration Date Visits Requ ested Visits Authorized [id number] Closed 11/01/2016 11/01/2017 1 1 Encounter Details Date Type Department Care Team Description 11/07/2016 Hospital Encounter [facility] Emilie Carlson SOB (shortness of breath); [facility] DO [place] Chest pain, unspecified type Heart Care [address] [facility] [address] [facility] [address] [place] [address] [address] [place] (Work) [address] [phone] Social History Tobacco Use Types Packs/Day Years Used Date Smoking Tobacco: Never Alcohol Use Standard Drinks/Week Comments Yes 0 (1 standard drink = 0.6 oz pure alcoho l) rare Sex Assigned at Date Recorded Not on file documented as of this encounter Last Filed Vital Signs Vital Sign Reading Time Taken Comments Blood Pressure 132/73 11/07/2016 9:51 AM AUTOMATIC NAILING MACHINE OPERATOR Pulse - - Temperature - - Respiratory [...] Resul ts for this CORONARY ARTERY AM AUTOMATIC NAILING MACHINE OPERATOR breath) procedure are in Chest pain, the results unspecified type section. RADIOLOGIST CONSULT Routine 11/07/2016 11:30 SOB (shortness of Results for this FOR CARDIOLOGY AM AUTOMATIC NAILING MACHINE OPERATOR breath) procedure are in Chest pain, the results unspecified type section. ISTAT CREATININE Routine 11/07/2016 10:42 SOB (shortness of Re sults for this POCT AM AUTOMATIC NAILING MACHINE OPERATOR breath) procedure are i n the results section. documented in this encounter Results Radiologist Consult For Cardiology (11/07/2016 11:30 AM AUTOMATIC NAILING MACHINE OPERATOR) Anatomical Region Laterality Modality Computed Tomography Specimen (Source) Anatomical Location Collection Method / Collectio n Time Received Time / Laterality Volume Narrative 11/07/2016 5:21 PM AUTOMATIC NAILING MACHINE OPERATOR RADIOLOGIST CONSULT FOR CARDIOLOGY 11/07/2016 11:30 AM [...] CT Angiogram coronary artery (11/07/2016 11:30 AM AUTOMATIC NAILING MACHINE OPERATOR) Anatomical Region Laterality Modality Cardio, SUBRAD CT BODY, UMP CT CHEST Com puted Tomography Specimen (Source) Anatomical Location Collection Method / Collectio n Time Received Time / Laterality Volume Impressions 11/07/2016 1:47 PM AUTOMATIC NAILING MACHINE OPERATOR IMPRESSION: 1. ??Minimal non-obstructive coronary ar roma [...] MICHAEL HENDRICKSON MD Narrative 11/07/2016 1:47 PM AUTOMATIC NAILING MACHINE OPERATOR Procedure: CTA ANGIOGRAM CORONARY ARTERY Examination Date: [...] were reconstructed and charlie zed on a Roomorama workstation. Scan protocol was optimized to minimize [...] 0.4 mg was given prior to scan deerck. Coronary artery calcium score was performed using the Flash scan ner protocol. CTA was performed in the sequential mode at a he art rate of 47 bpm with 100 kVp. Images were reconstructed and charlie zed on a Roomorama workstation. Scan protocol was optimized to minimize [...] CT ORDERABLES Creatinine POCT (11/07/2016 10:42 AM AUTOMATIC NAILING MACHINE OPERATOR) P athologist Signature Creatinine 0.8 0.52 - POINT OF CARE 1.04 mg/dL TEST, HANDHELD METER GFR Estimate 71 >60 POINT OF CARE mL/min/1.7 TEST, HANDHELD m2 METER GFR Estimate If 86 >60 POINT OF CARE Black mL/min/1.7 TEST, HANDHELD m2 METER Specimen Anatomical Collection Method Collection Time Receive d Time (Source) Location / / Volume Laterality 11/07/2016 10:42 11/07/2016 AM AUTOMATIC NAILING MACHINE OPERATOR 10:51 AM AUTOMATIC NAILING MACHINE OPERATOR Emilie Carlson DO LAB - BEAKER POCT [...] iopamidol (ISOVUE-370) solution Given 11/07/2016 11:30 AM AUTOMATIC NAILING MACHINE OPERATOR 11 0 mLs 50-150 mL 50-150 mL, Intravenous, ONCE, On Rosa 11/07/16 at 1100, For 1 dose metoprolol (LOPRESSOR) injection 5-15 mg Given 11/07/2016 11:15 AM AUTOMATIC NAILING MACHINE OPERATOR 10 mg 5-15 mg, Intravenous, EVERY 3 [...] procedure., Cardiac Intra-procedure Given 11/07/2016 11:12 AM AUTOMATIC NAILING MACHINE OPERATOR 10 mg Given 11/07/2016 11:09 AM AUTOMATIC NAILING MACHINE OPERATOR 10 mg metoprolol (LOPRESSOR) tablet 50-100 mg Given 11/07/2016 9:51 AM AUTOMATIC NAILING MACHINE OPERATOR 100 mg 50-100 mg, Oral, ONCE PRN, [...] (NITROSTAT) sublingual tablet Given 10/11 10:02 AM AUTOMATIC NAILING MACHINE OPERATOR 0.4 mg 0.4 mg 0.4 mg, Sublingual, [...] flush 10-100 Given 11/07/2016 1 1:30 AM AUTOMATIC NAILING MACHINE OPERATOR 100 mLs mL 10-100 mL, Intravenous, ONCE, On Rosa 11/07/16 at 1100, For 1 dose documented in this encounter Care Teams Plate Conditioner Relationship Specialty Start Date End Date Flavia Guardado MD PCP - General Family Practice 08/05/[address] [address] documented as of this encounter
--- OUTSIDE RECORDS SUMMARY | 2022-09-12 11:22 | XMS_ITS | Encounter Summary ---
:1945 Author Organization [place] Address [address] [place] [address]. [place] [address] Care Team Providers Name Role Phone Flavia Guardado MD Primary Care Provider [phone] Reason for Visit Reason Onset Date Comments Previsit 10/21/2016 Encounter Details Date Type Department Care Team Description 10/21/2016 PRE VISIT [facility] Heart Emilie Carlson Previsit Clinic [facility] [address] [place] [address] [address] [place] [address] [address] [place] [address] [place], [place] [phone] Social History Tobacco Use Types Packs/Day Years Used Date Smoking Tobacco: Never Alcohol Use Standard Drinks/Week Comments Yes 0 (1 standard drink = 0.6 oz pure alcoho l) rare Sex Assigned at Date Recorded Not on file documented as of this encounter Plan of Treatment Not on filedocumented as of this encounter Visit Diagnoses Not on filedocumented in this encounter Care Teams Fish Hatchery Worker Relationship Specialty Start Date End Date Flavia Guardado MD PCP - General Family Practice 08/05/[address] [address] documented as of this encounter
--- OUTSIDE RECORDS SUMMARY | 2022-09-12 11:22 | XMS_ITS | Encounter Summary ---
:1945 Author Organization [facility] Address [address] [place] [address] Care Team Providers Name Role Phone Flavia Guardado MD Primary Care Provider [phone] Haley Gayle DO Unavailable Encounter Details [...] on filedocumented in this encounter Care Teams Sharepoint Designer Developer Relationship Specialty Start Date End Date Flavia Guardado MD PCP - General Family Practice 08/05/[address] [address] Haley Gayle DO Assigned PCP 02/01/21 [address] [place] [address] documented as of this encounter
--- OUTSIDE RECORDS SUMMARY | 2022-09-12 11:22 | XMS_ITS | Encounter Summary ---
:1945 Author Organization [place] Address [address] [place] [address] Care Team Providers Name Role Phone Flavia Guardado MD Primary Care Provider [phone] Haley Gayle DO Unavailable Reason for Visit Reason Comments Memory Loss Encounter Details Date Type Department Care Team Description 03/01/2021 Office Visit [facility] Haley Gayle Memo ry luz (Primary Clinic [place] DO Dx) [address], [address] [place] [address] [place], [place] [id number] (Wo rk) Social History Tobacco Use Types [...] progressive impairment the past 3-5 years in: short/shelter memory, word/namefinding difficulty, language difficulty and attention. [...] very helpful. Social Hx (Employment/Schooling): Originally from [place] and went to [facility]. 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 to Thomas and has 2 children (1 biological). She enjoys gardening, puzzles and spreading felicity! PMH: Reviewed. Most notable for: Hyperlipidemia, Depression/anxiety treated with Lexapro Is there a h/o delirium, CVA/TIA, TBI, substances, parkinsonism?: None Family Hx: Mother Advanced directive: Yes but not on file; PCP is in [facility]. ADLs: Independent Driving: No concerns regarding her driving but her prefers to drive and d/t his cognitive impairment she always rides along with him Finances: main director financial systems long-term Shopping/housekeeping/meal prep: Mostly per Anabel Medications: Uses pill box which is helpful Home situation: [facility] with Support: /family Behaviors/Hallucinations/Delusions: None OBJECTIVE: [...] activities as noted above Haley Gayle DO [facility] documented in this encounter Nursing Notes Roxi Hawk CMA - 03/01/2021 9:30 AM CDT Roxi Hawk CMA documented in this encounter Plan of Treatment Not on filedocumented as of this encounter Visit Diagnoses Diagnosis Memory loss - Primary documented in this encounter Care Teams Basket Bottom Machine Operator Relationship Specialty Start Date End Date Flavia Guardado MD PCP - General Family Practice 08/05/[address] [address] Haley Gayle DO Assigned PCP 02/01/21 [address] [place] [address] documented as of this encounter
--- OUTSIDE RECORDS SUMMARY | 2022-09-12 11:22 | XMS_ITS | Encounter Summary ---
:1945 Author Organization [place] Address [address] [place] [address] Care Team Providers Name Role Phone Flavia Guardado MD Primary Care Provider [phone] Haley Gayle DO Unavailable Encounter Details [...] on filedocumented in this encounter Care Teams Logging Contractor Relationship Specialty Start Date End Date Flavia Guardado MD PCP - General Family Practice 08/05/[address] [address] Haley Gayle DO Assigned PCP 02/01/21 [address] [place] [address] documented as of this encounter
--- OUTSIDE RECORDS SUMMARY | 2022-09-12 11:22 | XMS_ITS | Encounter Summary ---
:1945 Author Organization [place] Address [facility] [place] [address] Care Team Providers Name Role Phone Flavia Guardado MD Primary Care Provider Reason for Referral - Closed Specialty Diagnoses / Procedures Referred By Contact Refer red To Contact Diagnoses SOB (shortness of breath) Chest pain, unspecified type Daxa Carlson DO [address] [place] [address] Referral ID Status Reason Start Date Expiration Date Visits Requ ested Visits Authorized [id number] Closed 11/23/2016 11/23/2017 1 1 RAM DEVELOPMENT SPECIALIST Reason for Visit Reason Comments Heart Problem Chest Heaviness - Closed Specialty Diagnoses / Procedures Referred By Contact Refer red To Contact Diagnoses SOB (shortness of breath) Chest pain, unspecified type Daxa Carlson DO [address] [place] [address] Referral ID Status Reason Start Date Expiration Date Visits Requ ested Visits Authorized [id number] Closed 10/12/2016 10/12/2017 1 1 Encounter Details Date Type Department Care Team Description 10/24/2016 [facility] Hyper lipidemia LDL goal <100 (Primary Dx); Heart Clinic DO [place] SOB (shortness of breath); [place] [address] Chest pain, unspecified type [address] [facility] [address] [place] [address] [place], [place] [phone] [address] (Work) [phone] Social History Tobacco Use Types Packs/Day Years Used Date Smoking Tobacco: Never Alcohol Use Standard Drinks/Week Comments Yes 0 (1 standard drink = 0.6 oz pure alcoho l) rare Sex Assigned at Date Recorded Not on file documented as of this encounter Last Filed Vital Signs Vital Sign Reading Time Taken Comments Blood Pressure 125/67 10/24/2016 8:06 AM PROGRAM DEVELOPMENT SPECIALIST Pulse 73 10/24/2016 8:06 AM PROGRAM DEVELOPMENT SPECIALIST Temperature - - Respiratory Rate - - Oxygen Saturation - - Inhaled Oxygen Concentration - - Weight 68.7 kg (151 lb 8 oz) 10/24/2016 8:06 AM PROGRAM DEVELOPMENT SPECIALIST Height 167.6 cm (5' 6) 10/24/2016 8:06 AM PROGRAM DEVELOPMENT SPECIALIST Body Mass Index 24.45 10/24/2016 8:06 AM PROGRAM DEVELOPMENT SPECIALIST documented in this encounter Progress Notes Daxa Carlson DO - 10/24/2016 8:33 AM CST HPI and Plan: See dictation Orders Placed This Encounter Procedures ??? CT Angiogram coronary artery ??? Follow-Up with Line Tester No orders of the defined types were [...] [facility] [address] [place] [address] RAM DEVELOPMENT SPECIALIST Sonya Carlsonance DO [place] - 10/24/2016 8:32 [...] to her care. cc: Bobbi Guardado MD [facility] [address] [place] [address] DAXA CARLSON DO MT: JOSE RAUL Name: ANABEL MCCAULEY Account: [id number] : 1945 Service Date: 10/24/2016 Document: [id number] RAM DEVELOPMENT SPECIALIST documented in this encounter Plan of Treatment Scheduled Referrals Name Type Priority Associated Diagnoses Order S chedule Follow-Up with Referral Routine SOB (shortness of Expected : 11/23/2016 Line Tester breath) (Approximate), Chest pain, unspecified Expi res: 10/24/2017 type documented as of this encounter Results CT Angiogram coronary artery (11/07/2016 11:30 AM PROGRAM DEVELOPMENT SPECIALIST) Anatomical Region Laterality Modality Cardio, SUBRAD CT BODY, UMP CT CHEST Com puted Tomography Specimen (Source) Anatomical Location Collection Method / Collectio n Time Received Time / Laterality Volume Impressions 11/07/2016 1:47 PM PROGRAM DEVELOPMENT SPECIALIST IMPRESSION: 1. ??Minimal non-obstructive coronary ar roma [...] MICHAEL FARR MD Narrative 11/07/2016 1:47 PM PROGRAM DEVELOPMENT SPECIALIST Procedure: CTA ANGIOGRAM CORONARY ARTERY Examination Date: [...] were reconstructed and charlie zed on a Reachoo workstation. Scan protocol was optimized to minimize [...] were reconstructed and charlie zed on a Reachoo workstation. Scan protocol was optimized to minimize [...] with the findings. MICHAEL FARR MD Daxa aCrlson DO IMG CT ORDERABLES documented in this encounter Visit Diagnoses Diagnosis Hyperlipidemia LDL goal <100 - Primary Other and unspecified hyperlipidemia SOB (shortness of breath) Shortness of breath Chest pain, unspecified type SOB (shortness of breath) Shortness of breath Chest pain, unspecified type documented in this encounter Care Teams Car Cooper Relationship Specialty Start Date End Date Flavia Guardado MD PCP - General Family Practice 08/05/[address] [address] documented as of this encounter
--- OUTSIDE RECORDS SUMMARY | 2022-09-12 11:22 | XMS_ITS | Clinical Summary ---
:1945 Author Organization [place] Address [address] [place] [address] Care Team Providers Name Role Phone Flavia Guardado MD Primary Care Provider [phone] Haley Gayle DO Unavailable Allergies Active [...] be differe nt from the original. [email or web address] No additional problems on file Resolved Problems [...] Effective Dates Phone Addre ss Type Group [facility] MEDICARE [id number] 2019-Present [phone] [address] [place] [address] Anabel Bradford Medicare Self 1945 [id number] [place] (Home) W [phone] [place] (Work) [phone] Care Teams Insole And Heel Stiffener Relationship Specialty Start Date End Date Flavia Guardado MD PCP - General Family Practice 08/05/16 [facility] [address] [place] [address] Haley Gayle, Assigned PCP 02/01/21 [address] [place] [address]
--- OUTSIDE RECORDS SUMMARY | 2022-09-12 11:22 | XMS_ITS | Encounter Summary ---
:1945 Author Organization [place] Address [address] [place] [address] Care Team Providers Name Role Phone Flavia Guardado MD Primary Care Provider [phone] Reason for Visit Reason Onset Date Comments Results 11/08/2016 [facility] 11/07/16 Encounter Details Date Type Department Care Team Description 11/08/2016 Telephone [facility] Yumi Novoa RN 11/07/16) [address] [facility] [address] [place] [address] Social History Tobacco Use Types [...] OV with to review further. ESletteboe RN FILL GAS COLLECTION OPERATOR Telephone Encounter - Sommer Flores RN - [...] incidental noncardiac findings that will follow separately. FILL GAS COLLECTION OPERATOR documented in this encounter Plan of Treatment Not on filedocumented as of this encounter Visit Diagnoses Not on filedocumented in this encounter Care Teams Cray Fishing Hand Relationship Specialty Start Date End Date Flavia Guardado MD PCP - General Family Practice 08/05/[address] [address] documented as of this encounter
--- OUTSIDE RECORDS SUMMARY | 2022-09-12 11:22 | XMS_ITS | Encounter Summary ---
:1945 Author Organization [place] Address [address] [facility] [place] [address] Care Team Providers Name Role Phone Flavia Guardado MD Primary Care Provider [phone] Reason for Visit Reason Comments Hyperlipidemia 1 month f/u w/ Dr Carlson; HL D, Chest Pain, ARENAS Results CTA - Closed Specialty Diagnoses / Procedures Referred By Contact Refer red To Contact Diagnoses SOB (shortness of breath) Chest pain, unspecified type Emilie Carlson DO [address] [place] [address] Referral ID Status Reason Start Date Expiration Date Visits Requ ested Visits Authorized [id number] Closed 11/23/2016 11/23/2017 1 1 Encounter Details Date Type Department Care Team Description 11/25/[address] [facility] Emilie Carlson Hyper lipidemia LDL goal <100 (Primary Dx); Heart Clinic DO [place]a SOB (shortness of breath); [place] [address] Chest pain, unspecified type [address] [place] [address] [place], [place] [phone] [address] (Work) [phone] Social History Tobacco Use Types Packs/Day Years Used Date Smoking Tobacco: Never Alcohol Use Standard Drinks/Week Comments Yes 0 (1 standard drink = 0.6 oz pure alcoho l) rare Sex Assigned at Date Recorded Not on file documented as of this encounter Last Filed Vital Signs Vital Sign Reading Time Taken Comments Blood Pressure 134/80 11/25/2016 10:15 AM MACHINE I CUTTER Pulse 60 11/25/2016 10:15 AM MACHINE I CUTTER Temperature - - Respiratory Rate - - Oxygen Saturation - - Inhaled Oxygen Concentration - - Weight 68.9 kg (152 lb) 11/25/2016 10:15 AM MACHINE I CUTTER Height 167.6 cm (5' 6) 11/25/2016 10:15 AM MACHINE I CUTTER Body Mass Index 24.53 11/25/2016 10:15 AM MACHINE I CUTTER documented in this encounter Progress Notes Emilie [...] [facility] [address] [place] [address] INE I CUTTER Emilie Carlson DO - 11/25/2016 10:32 AM CST REFERRING PHYSICIAN: Dr. Flavia Guardado. HISTORY OF PRESENT ILLNESS: Ms. Mccauley is a pleasant 71-year-old female with a history of hyperlipidemia, chest pain and dyspnea on exertion as well as profound fatigue. She had undergone a stress test at [facility] that was read as normal, although she [...] be poor on her stress echo at [place] as well. She has already started this and she will continue this as she is traveling to [place], [place] for about 2 months. I have [...] to her care. cc: Flavia Guardado MD [address] [address] EMILIE CARLSON DO MT: MARQUES Name: ANABEL MCCAULEY Account: [id number] : 1945 Service Date: 11/25/2016 Document: [id number] INE I CUTTER documented in this encounter Plan of Treatment Not on filedocumented as of this encounter Visit Diagnoses Diagnosis Hyperlipidemia LDL goal <100 - Primary Other and unspecified hyperlipidemia SOB (shortness of breath) Shortness of breath Chest pain, unspecified type documented in this encounter Care Teams Undertaker Helper Relationship Specialty Start Date End Date Flavia Guardado MD PCP - General Family Practice 08/05/16 [facility] [address] [place] [address] documented as of this encounter
--- OUTSIDE RECORDS SUMMARY | 2022-09-12 11:22 | XMS_ITS | Encounter Summary ---
:1945 Author Organization [place] Address [address] [place] [address] Care Team Providers Name Role Phone Flavia Guardado MD Primary Care Provider [phone] Haley Gayle DO Unavailable Encounter Details Date Type Department Care Team Description 02/19/2021 Telephone [facility] Haley Ríos MD [place] [address] [facility] [address] [place] [address] [address] [place] [phone] Social History Tobacco Use Types Packs/Day Years Used Date Smoking Tobacco: Never Alcohol Use Standard Drinks/Week Comments Yes 0 (1 standard drink = 0.6 oz pure alcoho l) rare Sex Assigned at Date Recorded Not on file documented as of this encounter Plan of Treatment Not on filedocumented as of this encounter Visit Diagnoses Not on filedocumented in this encounter Care Teams Senior Planner Relationship Specialty Start Date End Date Flavia Guardado MD PCP - General Family Practice 08/05/[address] [address] Haley Gayle DO Assigned PCP 02/01/21 [address] [place] [address] documented as of this encounter
--- OUTSIDE RECORDS SUMMARY | 2022-09-12 11:22 | XMS_ITS | Encounter Summary ---
:1945 Author Organization [facility] Address [address] [place] [address] Care Team Providers Name Role Phone Flavia Guardado MD Primary Care Provider [phone] Reason for Visit Reason Onset Date Comments Results 09/19/2016 HGB (09/19/16) Encounter Details Date Type Department Care Team Description 09/19/2016 Telephone [facility], Results (HGB (09/19/16)) Clinic Yumi hCong RN [address] [address] Social History Tobacco Use Types Packs/Day Years Used Date Smoking Tobacco: Never Alcohol Use Standard Drinks/Week Comments Yes 0 (1 standard drink = 0.6 oz pure alcoho l) rare Sex Assigned at Date Recorded Not on file documented as of this encounter Miscellaneous Notes Telephone Encounter - Arlette Hannah RN - 09/19/2016 3:12 PM RESPIRATORY SERVICES MANAGER Contacted patient to discuss Hgb (09/19) results. I explained that the preliminary PFT results were back, however, the final report (dictated portion) is still pending. I told her we will contact her when the final results are back. I confirmed her upcoming appointment with on 10/24/16. IRATORY SERVICES MANAGER documented in this encounter Plan of Treatment Not on filedocumented as of this encounter Visit Diagnoses Not on filedocumented in this encounter Care Teams Size Maker Relationship Specialty Start Date End Date Flavia Guardado MD PCP - General Family Practice 08/05/[address] [address] documented as of this encounter
--- OUTSIDE RECORDS SUMMARY | 2022-09-12 11:22 | XMS_ITS | Encounter Summary ---
:1945 Author Organization [facility] Address [address] [place] [address] Care Team Providers Name Role Phone Flavia Guardado MD Primary Care Provider [phone] Haley Gayle DO Unavailable Reason for Referral Diagnostic Imaging MRI (Routine) - Closed Specialty Diagnoses / Procedures Referred By Contact Refer red To Contact Diagnoses Memory loss Haley Gayle DO Procedures MR Brain w/o Contrast [address] [place] [address] Phone: Referral ID Status Reason Start Date Expiration Date Visits Requ ested Visits Authorized [id number] Closed 03/08/2021 03/08/2022 1 1 Encounter Details Date Type Department Care Team Description 03/08/2021 Telephone [facility] Haley Gayle DO [place] [address] [facility] [address] [place] [address] [address] [place] [address] [phone] Social History Tobacco Use Types Packs/Day Years [...] Per patient request- MRI order faxed to [phone] Telephone Encounter - Haley Gayle DO - 03/08/2021 1:45 PM CDT MRI ordered - given to Maegan who accompanied to his visit today. She [facility] insurance coverage for an open brain MRI. documented in this encounter Plan of Treatment Scheduled Orders Name Type Priority Associated Diagnoses Order S chedule MR Brain w/o Contrast Imaging Routine Memory loss Expect ed: 03/15/2021 (Approximate), Expires: 03/08/2022 documented as of this encounter Visit Diagnoses Diagnosis Memory loss - Primary documented in this encounter Care Teams Student Advisor Relationship Specialty Start Date End Date Flavia Guardado MD PCP - General Family Practice 08/05/[address] [address] Haley Gayle DO Assigned PCP 02/01/21 [address] [place] [address] documented as of this encounter
--- OUTSIDE RECORDS SUMMARY | 2022-09-12 11:22 | XMS_ITS | Encounter Summary ---
:1945 Author Organization [place] Address [facility] [address] Care Team Providers Name Role Phone Flavia Guardado MD Primary Care Provider Encounter Details Date Type Department Care Team Description 09/19/2016 Hospital Encounter [facility] Emilie Carlson SOB (shortness of [facility] Minerva, DO breath) [address] [facility] [address] [place] [address] [place], [place] [address] Social History Tobacco Use Types Packs/Day Years [...] SOB (shortness of Res ults for this RESPIRATORY THERAPY ASSISTANT breath) procedure are i n the results section . documented in this encounter Results Hemoglobin (09/19/2016 11:25 AM RESPIRATORY THERAPY ASSISTANT) athologist Signature Hemoglobin 13.7 11.7 - 15.7 [facility] g/dL [facility] Specimen Anatomical Collection Method Collection Time Receive d Time (Source) Location / / Volume Laterality Blood specimen 09/19/2016 11:25 6 (specimen) AM RESPIRATORY THERAPY ASSISTANT 11:26 AM RESPIRATORY THERAPY ASSISTANT Emilie Carlson DO LAB - BLOOD ORDERABLES Performing Organization Address City/State/ZIP Code Phon e Number [place] [address] [address] [place] [address] [place] [address] [phone] documented in this encounter Visit Diagnoses Diagnosis SOB (shortness of breath) Shortness of breath documented in this encounter Care Teams Stores Laborer Relationship Specialty Start Date End Date Flavia Guardado MD PCP - General Family Practice 08/05/[address] [address] documented as of this encounter
--- OUTSIDE RECORDS SUMMARY | 2022-09-12 11:22 | XMS_ITS | Encounter Summary ---
:1945 Author Organization [place] Address [address] [place] [address] Care Team Providers Name Role Phone Flavia Guardado MD Primary Care Provider [phone] Reason for Visit Reason Onset Date Comments Results 09/20/2016 PFT Encounter Details Date Type Department Care Team Description 09/20/2016 Telephone [facility] Heart Viki Yuen, Results (PFT ) Clinic [place] RN [address] [facility] [address] [place] [address] Social History Tobacco Use Types Packs/Day Years Used Date Smoking Tobacco: Never Alcohol Use Standard Drinks/Week Comments Yes 0 (1 standard drink = 0.6 oz pure alcoho l) rare Sex Assigned at Date Recorded Not on file documented as of this encounter Miscellaneous Notes Telephone Encounter - Emilie Carlson DO - 09/26/2016 2:40 PM EDUCATION PROGRAM MANAGER Just have her f/u in clinic. Would like to know if inhaler works before ordering CTA ATION PROGRAM MANAGER Telephone Encounter - Sommer Flores RN - [...] with Dr. Carlson to discuss further testing. ATION PROGRAM MANAGER Telephone Encounter - Viki Yuen RN - [...] Will send update to . Gustavo OLIVARES ATION PROGRAM MANAGER documented in this encounter Plan of Treatment Not on filedocumented as of this encounter Visit Diagnoses Not on filedocumented in this encounter Care Teams Boatbuilder Supervisor Relationship Specialty Start Date End Date Flavia Guardado MD PCP - General Family Practice 08/05/16 [place] [address] documented as of this encounter
--- OUTSIDE RECORDS SUMMARY | 2022-09-12 11:22 | XMS_ITS | Encounter Summary ---
:1945 Author Organization [place] Address [address] [place] [address] Care Team Providers Name Role Phone Flavia Guardado MD Primary Care Provider [phone] Haley Gayle DO Unavailable Reason for Visit Reason Onset Date Comments MRI Channel Marketing Specialist 04/05/2021 Brain 04/03/21 Encounter Details Date Type Department Care Team Description 04/05/2021 Telephone [facility] Haley Gayle, MRI Channel Marketing Specialist Clinic [facility] (Brain 04/03/21) [address], [address] [place] [address] [place], [place] [id number] (Wo rk) Social History Tobacco Use Types [...] 4:59 PM CDT Received brain MRI from [facility] and shared results with Maegan on the phone. 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 She was relieved. She can contact [facility] directly if she'd like a copyof the report. Haley Gayle DO documented in this encounter Plan of Treatment Not on filedocumented as of this encounter Visit Diagnoses Not on filedocumented in this encounter Care Teams Cup Machine Operator Relationship Specialty Start Date End Date Flavia Guardado MD PCP - General Family Practice 08/05/[address] [address] Haley Gayel DO Assigned PCP 02/01/21 [address] [place] [address] documented as of this encounter
--- OUTSIDE RECORDS SUMMARY | 2022-09-12 11:23 | XMS_ITS | Encounter Summary ---
:1945 Author Organization [place] Address [facility] [place] [address] Care Team Providers Name Role Phone Flavia Guardado MD Primary Care Provider [phone] Reason for Visit Reason Comments Other recs received from PCP- sent to chart prep for ov with dr adams in 09/12/16 in [facility] Encounter Details Date Type Department Care Team Description 08/14/2016 Documentation Only [facility] Him Use Only, Oth er (recs received [facility] Yumi Barksdale Md For Event from PCP- sent to [address] [place] [address] [address] [place] [address] Social History Tobacco Use Types Packs/Day Years Used Date Smoking Tobacco: Never Assessed Sex Assigned at Date Recorded Not on file documented as of this encounter Plan of Treatment Not on filedocumented as of this encounter Visit Diagnoses Not on filedocumented in this encounter Care Teams Wool Buyer Relationship Specialty Start Date End Date Flavia Guardado MD PCP - General Family Practice 08/05/[address] [address] documented as of this encounter
--- OUTSIDE RECORDS SUMMARY | 2022-09-12 11:23 | XMS_ITS | Encounter Summary ---
:1945 Author Organization [facility] Address [address] [place] [address] Care Team Providers Name Role Phone Unavailable [...]
--- OUTSIDE RECORDS SUMMARY | 2022-09-12 11:23 | XMS_ITS | Encounter Summary ---
:1945 Author Organization [place] Address [address] [place] [address] Care Team Providers Name Role Phone Unavailable Primary Care Provider Unavailable Encounter Details Date Type Department Care Team Description 12/30/2003 Emergency room Lissa Quiñonez EMERGENCY PHYSIC [place] [address] [place] [address] (Wo rk) Social History Tobacco Use Types Packs/Day Years Used Date Smoking Tobacco: Never Assessed Sex Assigned at Date Recorded Not on file documented as of this encounter ED Notes Lissa Quiñonez - 12/30/2003 12:00 AM DIRECTIONAL BORE OPERATOR : 45 CHIEF COMPLAINT: Nausea and vomiting. [...] EM150 _ LISSA QUIÑONEZ MD MT: Document: [id number] [place], [place] Name: ANABEL MCCAULEY EMERGENCY ROOM ENCOUNTER Page 2 of 2 TRINITYN: ERB DSC: 12/30/2003 [place], [place] Name: MR#: : Admit Date: ANABEL MCCAULEY [id number] 1945 12/30/2003 Doctor: LISSA QUIÑONEZ MD EMERGENCY ROOM ENCOUNTER Page 1 of 2 documented in this encounter Plan of Treatment Not on filedocumented as of this encounter Visit Diagnoses Not on filedocumented in this encounter
--- OUTSIDE RECORDS SUMMARY | 2022-09-12 11:23 | XMS_ITS ---
:1945 Author Care Team Providers Name Role Phone AKASH RUSHING MD Primary Care Provider [phone] Allergies Code Code System Name Reaction Severity [...] Cystitis; Overactive Bladder Nori Easley MD: [address] [facility] [place] [address], Ph. 05/15/2021 Overactive Bladder; Bladder Polyp Nori Easley MD: [address] [place] [address], Ph. Social History Tobacco Smoking Status Never [...]
--- OUTSIDE RECORDS SUMMARY | 2022-09-12 11:23 | XMS_ITS | Encounter Summary ---
:1945 Author Organization [place] Address [address] [facility] [place] [address] Care Team Providers Name Role Phone Flavia Guardado MD Primary Care Provider [phone] Encounter Details Date Type Department Care Team Description 09/12/2016 Orders Only [facility] Emilie Carlson SOB ( shortness of breath) (Primary Dx); Evelio Respiratory Minerva, DO Chest pain, unspecified type Therapy [address] [place] [id number] [phone] Social History Tobacco Use Types Packs/Day Years [...] (shortness o f breath) 09/19/2016 10:26 AM ASSOCIATE CONSULTING ENGINEER (Please always keep Chest pain, unspecifi ed [...] type documented in this encounter Care Teams Tank Refinisher Relationship Specialty Start Date End Date Flavia Guardado MD PCP - General Family Practice 08/05/[address] [address] documented as of this encounter
--- OUTSIDE RECORDS SUMMARY | 2022-09-12 11:23 | XMS_ITS | Encounter Summary ---
:1945 Author Organization [place] Address [address] [facility] [address] Care Team Providers Name Role Phone Unavailable Primary Care Provider Unavailable Encounter Details Date Type Department Care Team Description 05/24/2015 Therapy Visit [facility] Pranav Rothman [facility] or Rehabilitation Services PT lumbosacral neuritis [facility] or radiculitis, [address] [place], [place] [address]TIC MEDICINE unspecified (Primary [address] Dx) [address] [place], [place] [phone] [address] Social History Tobacco Use Types Packs/Day [...] Procedure Name Priority Date/Time Associated Diagnosis Comme [facility] THERAPEUTIC Routine 05/24/2015 12:26 PM Thoracic or lumbos acral EXERCISES CDT neuritis or radiculitis, unspecified documented in this encounter Visit Diagnoses Diagnosis Thoracic or lumbosacral neuritis or radi culitis, unspecified - Primary documented in this encounter
--- OUTSIDE RECORDS SUMMARY | 2022-09-12 11:23 | XMS_ITS | Encounter Summary ---
:1945 Author Organization [place] Address [address] [facility] [place] [address] Care Team Providers Name Role Phone Unavailable Primary Care Provider Unavailable Encounter Details Date Type Department Care Team Description 05/08/2015 Therapy Visit [facility] Pranav Rothman [facility] or Rehabilitation Services PT lumbosacral neuritis [facility] or radiculitis, [address] [place], [place] [address]TIC MEDICINE unspecified (Primary [address] Dx) [address] [place], [place] [phone] Social History Tobacco Use Types Packs/Day [...] Sheet for this information) Short term and assistant terminal manager goals: (See Goal Flow Sheet for this [...] Procedure Name Priority Date/Time Associated Diagnosis Comme [facility] THERAPEUTIC Routine 05/08/2015 2:50 PM Thoracic or lumbosa cral EXERCISES CDT neuritis or radiculitis, unspecified documented in this encounter Visit Diagnoses Diagnosis Thoracic or lumbosacral neuritis or radi culitis, unspecified - Primary documented in this encounter
--- OUTSIDE RECORDS SUMMARY | 2022-09-12 11:23 | XMS_ITS | Encounter Summary ---
:1945 Author Organization [place] Address [facility] [place] [address] Care Team Providers Name Role Phone Flavia Guardado MD Primary Care Provider [phone] Reason for Visit (Routine) - Closed Specialty Diagnoses / Procedures Referred By Contact Refer red To Contact Respiratory Therapy Diagnoses I schedule PFT's w/Tanesha at [facility] Cardiop. Pt will check in at 10:15 at [facility] Dry Primer Powder Blender. nkf 09/12 PFT Rh Respiratory Ther Procedures PULMONARY FUNCTION TEST [address] [place] [address] Phone: Referral ID Status Reason Start Date Expiration Date Visits Requ ested Visits Authorized [id number] Closed 09/18/2016 09/18/2017 1 1 Encounter Details Date Type Department Care Team Description 09/19/2016 Hospital Encounter [facility] Emilie Carlson SOB (shortness of breath); Evelio Respiratory Minerva, DO Chest pain, unspecified type Therapy [address] [place] [address] Social History Tobacco Use Types Packs/Day [...] met the ATS standards for acceptabilityand repeatability. REPAIR TECHNICIAN documented in this encounter Procedure Notes Nicole Layton MD - 09/19/2016 11:16 AM CSTAssociated Order(s): PFT GENERAL LAB TESTING Please see medical chart for graphs and statistics related to this report. REFERRING PHYSICIAN: Emilie Carlson ROVING TELLER: Yoon Velazco DIAGNOSIS: dyspnea on exertion HEIGHT: [...] MT: Name: ANABEL MCCAULEY MRN: [id number] Account: [id number] : 1945 Procedure Date: 09/19/2016 Document: [id number] cc: Emilie Ash MD REPAIR TECHNICIAN documented in this encounter Plan of Treatment Pending Results Name Type Priority Associated Diagnoses Date/Ti oh General PFT Lab PFT Routine SOB (shortness o f breath) 09/19/2016 10:26 AM RV REPAIR TECHNICIAN (Please always keep Chest pain, unspecifi ed checked) type Scheduled Orders Name Type Priority Associated Diagnoses Order S chedule Pulmonary Function Test PFT Routine SOB (shortness of 1 Occurrences starting breath) 09/19/2016 until Chest pain, unspecified 09/10 type documented as of this encounter Procedures Procedure Name Priority Date/Time Associated Diagnosis Comme nts PFT GENERAL LAB 12/04/2016 3:15 PM Result s for this TESTING RV REPAIR TECHNICIAN procedure are i n the results section. PFT GENERAL LAB Routine 09/19/2016 10:26 AM SOB (shortness of TESTING RV REPAIR TECHNICIAN breath) Chest pain, unspecified type documented in this encounter Results PFT GENERAL LAB TESTING (12/04/2016 3:15 PM RV REPAIR TECHNICIAN) Transcriptions Nicole Layton MD - 09/19/2016 11:16 A M CST Please see medical chart for graphs and statistics related to this report. REFERRING PHYSICIAN: Emilie Carlson ROVING TELLER: Yoon Velazco DIAGNOSIS: dyspnea on exertion HEIGHT: [...] MT: Name: ANABEL MCCAULEY MRN: [id number] Account: [id number] : 1945 Procedure Date: 09/19/20 Document: [id number] cc: Emilie Ash MD Nicole Layton MD PFT ORDERABLES documented in this encounter Visit Diagnoses Diagnosis SOB (shortness of breath) Shortness of breath Chest pain, unspecified type documented in this encounter Care Teams Gold Blower Relationship Specialty Start Date End Date Flavia Guardado MD PCP - General Family Practice 08/05/[address] [address] documented as of this encounter
--- OUTSIDE RECORDS SUMMARY | 2022-09-12 11:23 | XMS_ITS | Encounter Summary ---
:1945 Author Organization [place] Address [address] [facility] [place] [address] Care Team Providers Name Role Phone Flavia Guardado MD Primary Care Provider [phone] Reason for Referral - Closed Specialty Diagnoses / Procedures Referred By Contact Refer red To Contact Diagnoses SOB (shortness of breath) Chest pain, unspecified type Emilie Carlson DO [address] [place] [address] Referral ID Status Reason Start Date Expiration Date Visits Requ ested Visits Authorized [id number] Closed 10/12/2016 10/12/2017 1 1 Encounter Details Date Type Department Care Team Description 09/12/2016 Office Visit [facility] Emilie Carlson SOB ( shortness of breath) (Primary Dx); Heart Clinic DO Minerva Chest pain, unspecified type [place] [address] [place] [address] [place], [place] [phone] (Wo rk) [address] [phone] Social History Tobacco Use Types Packs/Day Years [...] Placed This Encounter Procedures ??? Follow-Up with Rocket Propellant Plant Supervisor ??? General PFT Lab (Please always keep [...] place;no gross motor deficits Flavia Guardado MD [address] [address] Emilie Carlson DO - 09/12/2016 8:30 AM CDT REFERRING PHYSICIAN: Dr. Flavia Guardado HISTORY OF PRESENT ILLNESS: Ms. Mcaculey is a very pleasant 71-year-old female with [...] She underwent a stress echocardiogram at [facility] for her symptoms of chest heaviness and [...] [facility] [place] [facility]. She has not experienced [...] your nice patient. cc: [place] [address] EMILIE CARLSON DO MT: S[place] Name: ANABEL MCCAULEY MRN: [id number] Account: [id number] : 1945 Service Date: 09/12/2016 Document: [id number] [address] POLICE OFFICER documented in this encounter Plan of Treatment Scheduled Referrals Name Type Priority Associated Diagnoses Order S chedule Follow-Up with Referral Routine SOB (shortness of Expected : 10/12/2016 Rocket Propellant Plant Supervisor breath) (Approximate), Chest pain, unspecified Expi res: 09/12/2017 type documented as of this encounter Visit Diagnoses Diagnosis SOB (shortness of breath) - Primary Shortness of breath Chest pain, unspecified type documented in this encounter Care Teams Automotive General Sales Manager Relationship Specialty Start Date End Date Flavia Guardado MD PCP - General Family Practice 08/05/[address] [address] documented as of this encounter
--- OUTSIDE RECORDS SUMMARY | 2022-09-12 11:23 | XMS_ITS | Encounter Summary ---
:1945 Author Organization [place] Address [address] [place] [address]. [place] [address] Care Team Providers Name Role Phone Flavia Guardado MD Primary Care Provider [phone] Reason for Visit Reason Onset Date Comments *-*INCOMING RECORDS*-* 09/06/2016 received PMD visi t 07/17/16. Xray, EKG and labs(lipid panel, BMP, B12, CBC , TSH, Vit D, ALT, AST) from 07/17/16. Stress test and stress ECHO dated 07/30/16 Encounter Details Date Type Department Care Team Description 09/06/2016 Telephone [facility] AldoEmilie *-*IN COMING RECORDS*-* Heart Clinic Yumi Palma DO (received PMD visit [address] [facility] [address] [facility] . Xray, EKG and South [address] labs(lipid panel, BMP, [place] [address] [place] [address] B12, CBC, TSH, Vit D, (Wo rk) [...] EXTERNAL LAB EXTERNAL LAB External Lab CBC ([place]) (07/17/2016) P athologist Signature WBC 6.3 10^9/L EXTERNAL LAB RBC Count 4.71 10^12/L EXTERNAL LAB Hemoglobin 14.6 11.7 - EXTERNAL LAB 15.7 g/dL Hematocrit 42.6 % EXTERNAL LAB MCV 90 fl EXTERNAL LAB MCH 31 pg EXTERNAL LAB [facility] [place] 34 % EXTERNAL LAB RDW % EXTERNAL [...] LAB - BLOOD ORDERABLES Performing Organization Address City/[facility]/ZIP [facility] Phon e Number EXTERNAL LAB EXTERNAL LAB External Lab TSH (07/17/2016) athologist Signature TSH 1.260 mcU/mL EXTERNAL LAB Specimen (Source) Anatomical Location Collection Method / Collectio n Time Received Time / Laterality Volume Blood specimen 07/17/2016 (specimen) Provider Outside LAB - BLOOD ORDERABLES Performing Organization Address City/[facility]/ZIP Code Phon e Number EXTERNAL LAB EXTERNAL LAB External Lab Vitamin D 25-Hydroxy ([facility]) (07/17/2016) P athologist Signature Vitamin 33 ng/mL EXTERNAL LAB D,25-Hydroxy Specimen (Source) Anatomical Location Collection Method / Collectio n Time Received Time / Laterality Volume Blood specimen 07/17/2016 (specimen) Provider Outside LAB - [facility] Performing Organization Address City/[facility]/ZIP Code Phon e Number EXTERNAL LAB EXTERNAL LAB External Lab Vitamin B12 (07/17/2016) P athologist Signature Vitamin B12 436 pg/mL EXTERNAL LAB Specimen (Source) Anatomical Location Collection Method / Collectio n Time Received Time / Laterality Volume Blood specimen 07/17/2016 (specimen) Provider Outside LAB - BLOOD ORDERABLES Performing Organization Address City/[facility]/ZIP Code Phon e Number EXTERNAL LAB EXTERNAL LAB External Lab documented in this encounter Visit Diagnoses Not on filedocumented in this encounter Care Teams Public Policy Manager Relationship Specialty Start Date End Date Flavia Guardado MD PCP - General Family Practice 08/05/[address] [address] documented as of this encounter
--- OUTSIDE RECORDS SUMMARY | 2022-09-12 11:23 | XMS_ITS | Clinical Summary ---
:1945 Author Organization [facility] Address [facility] [address] [place] [address] Care Team Providers Name Role Phone Unavailable [...]
--- OUTSIDE RECORDS SUMMARY | 2022-09-12 11:23 | XMS_ITS | Encounter Summary ---
:1945 Author Organization [place] Address [address] [place] [address]. [place] [address] Care Team Providers Name Role Phone Unavailable Primary Care Provider Unavailable Encounter Details Date Type Department Care Team Description 05/17/2015 Therapy Visit [facility] Pranav Rothman Thora cic or Rehabilitation Services PT lumbosacral neuritis [facility] or radiculitis, [address] [place] [address] ATHLETIC MEDICINE unspecified (Primary [place], [place] [phone] [place] [address] Dx) [address] [place], [place] [phone] [address] Social History Tobacco Use Types Packs/Day Years Used Date Smoking Tobacco: Never Assessed Sex Assigned at Date Recorded Not on file documented as of this encounter Plan of Treatment Not on filedocumented as of this encounter Procedures Procedure Name Priority Date/Time Associated Diagnosis Comme [facility] THERAPEUTIC Routine 05/17/2015 3:17 PM Thoracic or lumbosa cral EXERCISES CDT neuritis or radiculitis, unspecified documented in this encounter Visit Diagnoses Diagnosis Thoracic or lumbosacral neuritis or radi culitis, unspecified - Primary documented in this encounter
--- OUTSIDE RECORDS SUMMARY | 2022-09-12 11:23 | XMS_ITS | Encounter Summary ---
:1945 Author Organization [place] Address [facility] [place] [address] Care Team Providers Name Role Phone Flavia Guardado MD Primary Care Provider [phone] Reason for Visit Reason Onset Date Comments Previsit 09/06/[address] Carlson 09/12/16 request for recent PMD notes/labs/procedure s Encounter Details Date Type Department Care Team Description 09/06/2016 Telephone [facility] Emilie Carlson sit (NEW patient [facility] Yumi Palma DO for Dr. Carlson 09/12/16 [address] [facility] [address] [facility] [address] requ est for recent PMD [facility] [address] notes/labs/procedures J[place] Bertrand [id number] JAMES BERTRAND [id number] ) [phone] (Wo rk) Social History Tobacco Use Types Packs/Day Years Used Date Smoking Tobacco: Never Assessed Sex Assigned at Date Recorded Not on file documented as of this encounter Plan of Treatment Not on filedocumented as of this encounter Visit Diagnoses Not on filedocumented in this encounter Care Teams Subeditor Relationship Specialty Start Date End Date Flavia Guardado MD PCP - General Family Practice 08/05/[address] [address] documented as of this encounter
--- NOTE | 2022-09-12 11:30 | CRLHL7_ITS ---
For Patients: As a result of the Cures Act, medical imaging exams and procedure reports are released immediately into your electronic medical record. You may view this report before your referring provider. If you have questions, please contact your health care provider. BILATERAL SCREENING MAMMOGRAM WITH COMPUTER-AIDED DETECTION AND TOMOSYNTHESIS TECHNIQUE: CC and MLO views were obtained. These mammographic images have been obtained using full-field digital technique. These mammographic images were interpreted with the benefit of computer-aided detection. Breast Tomosynthesis was used in this interpretation. COMPARISON FILM: 09/04/21,05/05/19, 09/24/17. FINDINGS: There are scattered areas of fibroglandular density IMPRESSION: There is no radiographic evidence for malignancy. ASSESSMENT: BI-RADS Category 2: Benign RECOMMENDATION: Routine screening mammogram in 1 year. A lay language report of this examination will be provided to the patient. Chavez Elias M.D. Diagnostic Radiologist [email or web address] RAKESH/angel Transcribed: 2:52 p.m. VICTOR HUGO/Dictated by: Chavez Elias MD @ 09/13/2022 8:24:00 AM (Electronically Signed)
== END 2022-09-12 11:19 | disposition home or self-care (01) ==
LOC: MAMMO 11:19
PROVIDERS: PCP Family Medicine; Visit Provider Internal Medicine
DX: Z12.31 Encounter for screening mammogram for malignant neoplasm of breast (principal)
CPT/HCPCS: 77063; 77067

== ENCOUNTER 2023-06-12 10:30 | Outpatient (RCR) | payer MEDICARE, SELFPAY ==
--- NOTE | 2023-03-18 16:32 | PT.OPE ---
PT [place] Outpatient Eval PT [facility] Out[facility] Eval Start: 03/18/23 09:48 Freq: Status: Active Protocol: Document 03/18/23 09:49 LSL (Rec: 03/18/23 10:49 LSL [id number]) E-signed By Marisela Alexander PT Physical Therapy Outpatient Evaluation Insurance Information Recert Due Date 06/13/23 Insurance Name Medicare B,[facility] Insurance Information/Comments Medicare Advantage Medical Diagnosis LBP, cervicalgia Treating Diagnosis pain, DDD and DJD of spine with impaired mobility, weakness, impaired balance Referring MD Juan Subjective Subjective Age related low back and neck pain for years currently worsening. It is more difficult to get out of bed in the morning and and real sore at belt line and my hips R>L are tender to touch. Sitting down at night I get pain in the right hip, and tinglings in both my feet. I want to be able to get out in my garden. Pain is mostly aching. My knee is really bad. During the day it hurts and if I am walking I have to stop because it hurts too much. It makes it really hard to fall asleep and wakes me up at night. 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 My is on the early stages of dementia, so I focus more on that than myself. Heat makes my back and neck feel better. Lots of acetomenophine help my knee but I don't like to take them because my mother of liver cancer. Squatting, stairs and walking increase my knee pain. Prolonged sitting increase my neck and back pain but my low back more. R shoulder pain with R hand dominance. 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, Respiratory problems, anxiety, TMJ, arthritis Pain Comments back 2/10 best, 7/10 worst neck 1/10 best, 5/10 worst knee 4/10 best, 9/10 worst Date of Last Physician Visit 02/20/23 Current Work Status Retired Precautions Weight Bearing Status Full Weight Bearing Objective Range of Motion AROM lumbar flexion 75%, B LF 90%, extension 50%, B rotation WFL without significant pain; cervical flexion WFL with increased ear ringing, extension 20% with increased ear ringing, LLF 25%, RLF 75%, B rotation 25%; shoulders WNL ; Knee L 0/0/140, R 0/6/133 PROM - SKC 75%, B piriformis WFL with pull in R hip on R side test, DKC 60% without symptoms but limited; cervical B rotation and LF 50-75%, flexion WNL Strength Knees - 5/5 Trunk - upper abdominals 5/5, lower abdominals 3/5, extensors 5/5 with less motion on R Hip - adductors R 4-/5, L 5/5, hip flexion R 4-/5, L 4+/5, hip abd R 3-/5, L 4/5 , hip ext R 3+/5, L 5-/5 Swelling moderate about distal adductor bundle R knee Palpation R lumbar paraspinals tight and tender, less definition around PF joint, B greater trochanter tender R>L; B cervical paraspinals, UT, scalenes and suboccipital, SCM tender, R tighter than L; B glut med, piriformis, lumbar paraspinals tight and tender to palpataion, swelling in R distal adductor and tight B R worse than L, B ITB tender proximally and distally Balance & Gait B SL 5 seconds with dropped hips B Posture Spasm R paraspinals prominent in all motions, forward head with dowagers hump Sensation/Reflexes B SLR negative Reflexes - B patellar 1/3, B achilles absent Other/Pertinent Objective Joint Play - R C3-C6 sideglides /6, L 2-3/6 Assessment Assessment/Impression Pt. is a 77 y/o female who presents with significant R glut weakness that is contributing to overutilization of her R adductors and causing swelling at the insertion at the knee. She has known multilevel DJD/ DDD at the cervical and lumbar levels but her trunk is actually fairly strong, she just has limited mobility. She will benefit from therex for a strengthening and mobility program but she is concerned about her copay and wants to minimize visits, so we are starting with a decreased duration and will try and progress to HEP. We will work on her balance with NM re-ed and use manual therapy prn to assist in mobility and pain relief. 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 Her goals are to be able to continue to take care of him, care for/visit two friends in their 90s and work in her garden. Primary Functional Limitations prolonged sitting, yard work, sleeping, walking Plan of Care Rehabilitation Potential Excellent Physical Therapy Goals SHORT TERM GOALS: (3 weeks) 1. Pt. to have 3+/5 or greater hip abductor strength. 2. Pt. to have decreased swelling at knee and improved extension so she is able to sleep without waking due to pain. 3. Pt. able to sit with pain less than 4/10 for 30'. 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 Pt. to have 4/5 or greater glut strength to assist in decreasing stress to adductors and decrease her hip pain. 2. Pt. to able to walk for 15- 20' with pain less than 3/10. 3. Pt. unlimited in her ability to get to and stay asleep with regards to pain. 4. Pt. able to work in her garden with pain less than 4/ 10 that does not last into the next day. Coordination/Communication With Referral Source Treatment Plan/Direct Interventions Manual Therapy,Neuromuscular Re-ed,Self-Care/Home Management,Therapeutic Exercises Frequency/Duration 2x/week 6 weeks Patient Will Be Discharged From Therapy Completion of LTG(s),Skills Plateau,Independent w/HEP, Independently Progressing Evaluation Billing Untimed Code Treatment Minutes 60 Complexity Moderate Certification Information Initial Certification Date 03/18/23 Ending Certification Date 06/13/23 Provider Signature Shows Agreement With POC & Medical Necessity Physician Signature & Date Requested Please Sign/Date Here Physician Comment/Change : Physician NPI Number #
== END 2023-07-29 12:30 | disposition home or self-care (01) ==
PROVIDERS: PCP Internal Medicine; Visit Provider Family Medicine
DX: M17.11 Unilateral primary osteoarthritis, right knee (principal); M54.50 Low back pain, unspecified; M54.2 Cervicalgia; M25.561 Pain in right knee; Z51.89 Encounter for other specified aftercare
CPT/HCPCS: 97032; 97110; 97112; 97140; 97162

== ENCOUNTER 2023-07-10 10:22 | Outpatient (CLI) | payer MEDICARE, SELFPAY | END 2023-07-10 10:23 | disposition home or self-care (01) | PROVIDERS: PCP Internal Medicine; Visit Provider Family Medicine | DX: E78.5 Hyperlipidemia, unspecified (principal); F33.9 Major depressive disorder, recurrent, unspecified; Z79.899 Other long term (current) drug therapy | CPT/HCPCS: 80053; 80061; 82306; 84443; 86769 ==

== ENCOUNTER 2023-09-11 10:44 | Outpatient (CLI) | payer MEDICARE, SELFPAY | END 2023-09-11 10:45 | disposition home or self-care (01) | PROVIDERS: PCP Internal Medicine; Visit Provider Family Medicine | DX: Z01.818 Encounter for other preprocedural examination (principal); L65.9 Nonscarring hair loss, unspecified; R53.83 Other fatigue | CPT/HCPCS: 82607; 82728; 84443 ==

== ENCOUNTER 2023-09-25 07:14 | Outpatient (CLI) | payer MEDICARE, SELFPAY ==
--- NOTE | 2023-09-25 08:53 | W.ANESCHARGE ---
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
== END 2023-09-25 07:15 | disposition home or self-care (01) ==
LOC: OP CLINIC 07:15
PROVIDERS: PCP Family Medicine; Visit Provider Surgery
DX: Z12.11 Encounter for screening for malignant neoplasm of colon (principal); K64.9 Unspecified hemorrhoids; K63.5 Polyp of colon; K57.30 Diverticulosis of large intestine without perforation or abscess without bleeding; Z86.010 Personal history of colon polyps
CPT/HCPCS: 00811; 45385; 88305; 99100; J2704

== ENCOUNTER 2024-02-10 09:21 | Outpatient (CLI) | payer MEDICARE, SELFPAY | END 2024-02-10 09:22 | disposition home or self-care (01) | LOC: FRMREF 09:23 | PROVIDERS: PCP Family Medicine; Visit Provider Physician Assistant Medical | DX: N30.00 Acute cystitis without hematuria (principal); R53.83 Other fatigue; Z13.228 Encounter for screening for other metabolic disorders | CPT/HCPCS: 80053; 87086 ==

== ENCOUNTER 2024-02-27 12:07 | Emergency (ER) | payer MEDICARE, SELFPAY ==
[2024-02-27 12:38] VITALS: BP 163/80; PULSE 88; RESP 16; TEMP 36.5; O2SAT 97; BMI 24.2
--- NOTE | 2024-02-27 12:44 | ED_ITS ---
HPI - General Adult General Date Seen: 02/27/24 Chief complaint: Headache/Migraine Stated complaint: vomiting/headache Time Seen by Provider: 02/27/24 12:43 History of Present Illness HPI narrative: Pleasant 78-year-old female presenting to the ER today presenting to the ER today with her for evaluation of headache, nausea and vomiting. She does have a history of hyperlipidemia, asthma, some low back pain and occasional headaches. She recalls that she has perhaps had a does not headaches similar to this 1 in the past over her life. However she has never had headache that lasted this long and was associated with this much nausea and vomiting. She was awoken from sleep early this morning around 6 or 7:00 a.m. by this headache. It has been present ever since then. It feels like a headache and a pressure. It has been continuous. It is associated with nausea and a few episodes of nonbilious, nonbloody emesis. She tried to take Tylenol this morning but vomited it up. No other associated symptoms. No recent head trauma. No fever. No recent cough or shortness of breath. No neck stiffness or neck pain. No associated neurologic symptoms. Vision normal. No blurry vision, diplopia, visual auras. No focal numbness or weakness in her arms or legs. Speech is been normal. Mental status and memory a been normal. was with her last night and this morning and does not have any headache. No known carbon monoxide exposure. Related Data Home Medications Medication Instructions Recorded Confirmed albuterol sulfate 90 mcg/actuation 2 puff inhalation Q4H PRN 06/17/22 02/10/24 aerosol inhaler Multivitamins PO 07/08/22 02/10/24 betamethasone, augmented 0.05 % topical 01/15/24 02/10/24 lotion ketoconazole 2 % shampoo topical 01/15/24 02/10/24 Previous Rx's Medication Instructions Recorded escitalopram oxalate 10 mg tablet 10 mg PO QDAY #90 tabs 01/15/24 (Lexapro) ondansetron 4 mg disintegrating 4 mg PO Q8H PRN nausea and 02/27/24 tablet vomiting #10 tabs Allergies Allergy/AdvReac Type Severity Reaction Status Date / Time prednisone Allergy Vomiting Verified 02/27/24 13:37 [facility] Medical History (Updated 02/27/24 @ 15:05 by Enzo Mcnair MD) UTI (urinary tract infection) ?N39.0 - Urinary tract infection, site not specified (ICD-10) Back pain ?M54.9 - Dorsalgia, unspecified (ICD-10) Fatigue ?R53.83 - Other fatigue (ICD-10) Multilevel foraminal stenosis ?M48.00 - Spinal stenosis, site unspecified (ICD-10) Multilevel degenerative disc disease (11/2017) ?M53.9 - Dorsopathy, unspecified (ICD-10) Patellofemoral arthralgia of both knees ?M22.2X1 - Patellofemoral disorders, right knee (ICD-10) ?M22.2X2 - Patellofemoral disorders, left knee (ICD-10) Surgical History History of basal cell carcinoma excision ?Z98.890 - Other specified postprocedural states (ICD-10) ?Z85.828 - Personal history of other malignant neoplasm of skin (ICD-10) History of shoulder surgery ?Z98.890 - Other specified postprocedural states (ICD-10) History of hysterectomy (1975) ?Z90.710 - Acquired absence of both cervix and uterus (ICD-10) History of esophagogastroduodenoscopy (EGD) ?Z98.890 - Other specified postprocedural states (ICD-10) History of colonoscopy (09/17/18) ?Z98.890 - Other specified postprocedural states (ICD-10) Abnormal cystoscopy (2018) ?R39.9 - Unspecified symptoms and signs involving the genitourinary system (ICD-10) Family History (Updated 09/21/22 @ 17:58 by Jeanie Earl) Father Alcoholism Colon cancer Mother Alzheimers disease Liver cancer Sister Anxiety disorder Social History (Updated 02/11/23 @ 13:52 by Tita Orlando ~ [facility], [facility]) Narrative: -Thomas Smoking Status: Never smoker Do you use any of these nicotine containing products: None Second hand tobacco smoke exposure: No How often do you have a drink containing alcohol: never AUDIT-C Alcohol total score: 0 Non-prescribed substance use: denies use Are you now , , , , never or living with a partner: Social isolation score (0-1 are the most socially isolated patients): 1 Little interest or pleasure in doing things: several days Feeling down, depressed, or hopeless: several days Exam Narrative: Exam Narrative: Constitutional: Appears well-developed and well-nourished. Alert. Conversant, but uncomfortable appearing. Feels better with the lights Ddimmed Non toxic. HENT: Head: Atraumatic. No depressed skull fracture, Raccoon Eyes, Lincoln's sign, or hemotympanum. Face normal. TMs normal Nose: Nose normal. Mouth/Throat: Oral mucosa is clear and moist. no trismus. Pharynx normal. Tonsils symmetric. No tonsillar enlargement, erythema, or exudate. Eyes: Conjunctivae normal. EOM normal. Pupils equal, round, and reactive to light. No scleral icterus. Neck: Normal range of motion. No stiffness. Neck supple. No tracheal deviation present. Cardiovascular: Normal rate, regular rhythm. No gallop. No friction rub. No murmur heard. Symmetric radial artery pulses Pulmonary/Chest: Effort normal. No stridor. No respiratory distress. No wheezes. No rales. No rhonchi . No tenderness. Abdominal: Soft.No distension. No mass. No tenderness. No rebound. No guarding. Musculoskeletal: RUE: Normal range of motion. No tenderness. No deformity LUE: Normal range of motion. No tenderness. No deformity RLE: Normal range of motion. No edema. No tenderness. No deformity LLE: Normal range of motion. No edema. No tenderness. No deformity Lymph: No cervical adenopathy. Neurological: Mental status normal. Attention normal. Alert and oriented x3. GCS 15. Memory normal. Speech fluent. Cognition normal. Cranial Nerves intact II-XII except I did not formally test gag or visual acuity. EOMI. Palate elevates symmetrically and tongue protrudes in the midline. Strength: 5/5 trapezius on the right and left 5/5 deltoid on the right and left 5/5 biceps on the right and left 5/5 triceps on the right and left 5/5 machine fitter on the right and left 5/5 thumb opposition on the right and le ft 5/5 finger abduction on the right and le ft 5/5 hip flexors (L3) on the right and le ft 5/5 quadriceps (L4) on the right and lef t 5/5 tibialis anterior on the right and l eft 5/5 EHL (L5) on the right and left 5/5 gastrocnemius (S1) on the right and left 5/5 hamstring on the right and left Sensation intact to light touch in both upper extremities (C4-T1) Sensation intact to light touch in Both lower extremities (L4-S1). coordination normal. Gait normal in the hallway. Skin: Skin is warm and dry. No rash noted. No pallor. Normal capillary refill. Psychiatric: Normal mood. Normal affect. Const: Vital Signs, click to edit/add: Vital Signs - 24 hr 02/27/24 12:38 02/27/24 15:00 02/27/24 15:17 Temperature 97.7 F 97.7 F Pulse Rate [Pulse Oximeter] 88 71 71 Respiratory Rate 16 12 12 Blood Pressure [Ri t Upper Arm] 163/80 H 140/74 H 140/74 H Pulse Oximetry 97 98 Oxygen Delivery Me thod Room Air Room Air Course Vital Signs Vital signs: Initial Vital Signs Temperature 97.7 F 02/27/24 12:38 Temperature Source Temporal Artery Scan 02/27/24 12:38 Pulse Rate 88 02/27/24 12:38 Respiratory Rate 16 02/27/24 12:38 Blood Pressure 163/80 H 02/27/24 12:38 Blood Pressure Mean 107 H 02/27/24 12:38 Pulse Oximetry 97 02/27/24 12:38 Oxygen Delivery Method Room Air 02/27/24 12:38 Vital Signs Temperature 97.7 F 02/27/24 12:38 Pulse Rate 88 02/27/24 12:38 Respiratory Rate 16 02/27/24 12:38 Blood Pressure 163/80 H 02/27/24 12:38 Pulse Oximetry 97 02/27/24 12:38 Oxygen Delivery Method Room Air 02/27/24 12:38 Temperature 97.7 F 02/27/24 15:17 Pulse Rate 71 02/27/24 15:17 Respiratory Rate 12 02/27/24 15:17 Blood Pressure 140/74 H 02/27/24 15:17 Pulse Oximetry 98 02/27/24 15:00 Oxygen Delivery Method Room Air 02/27/24 15:00 Medications Administered Medications: Discontinued Medications Generic Name Dose Route Start Last Admin Trade Name Antonia PRN Reason Stop Dose Admin Diphenhydramine HCl 12.5 mg 02/27/24 12:48 02/27/24 13:12 Diphenhydramine 50 Mg/Ml Inj IVP 02/27/24 12:49 12.5 mg ONCE ONE Administration Sodium Chloride 1,000 mls @ 1,000 mls/hr 02/27/24 13:00 02/27/24 14:37 0.9 % Sodium Chloride 1000 Ml IV 02/27/24 13:59 Infused .Q1H MICHAEL Infusion Ketorolac Tromethamine 15 mg 02/27/24 12:48 02/27/24 13:12 Ketorolac 15 Mg/Ml Inj IVP 02/27/24 12:49 15 mg ONCE ONE Administration Metoclopramide HCl 10 mg 02/27/24 12:48 02/27/24 13:12 Metoclopramide Hcl 5 Mg/Ml Inj IVP 02/27/24 12:49 10 mg ONCE ONE Administration Medical Decision Making MDM Narrative Medical decision making narrative: Ths patient presents with a headache that awoke her from sleep this morning and is more persistent than her previous headaches. She has recalled having had previous similar headaches in the past but never 1 this persistent and associated with this much nausea and vomiting.. A broad differential diagnosis was considered including tension, migraine, analgesic rebound, occipital neuralgia, etc. Other less common but serious causes considered included meningitis, encephalitis, subarachnoid bleed, stroke, tumor, etc. given that headache is worse than her previous headaches we did a consider possible subarachnoid hemorrhage. Noncontrast head CT is obtained and is normal. However it was a pain just beyond 6 hours out from onset of headache and there for cannot be thought to be 100% accurate. We did obtain CT angiogram of her head and neck which is also normal. No evidence for any aneurysmal disease or dissection. Patients questions were answered and they feel improved after above interventions in ED. Supportive outpatient management is therefore indicated. Headache precautions given for home. Lab Data Labs: Lab Results 02/27/24 Range/Units 13:12 WBC 5.40 (4.50-11.00) K/uL RBC 4.60 (4.00-5.20) m/uL Hgb 13.4 (12.0-16.0) gm/dL Hct 39.9 (33.0-51.0) % MCV 87 (80-100) fL MCH 29 (26-34) pg MCHC 34 (32-36) gm/dL RDW Coeff of Dre 12.3 (11.5-15.5) % Plt Count 190 (140-440) K/uL Neut % (Auto) 75.4 H (42.0-72.0) % Lymph % (Auto) 17.0 L (20-44) % Cannon % (Auto) 5.9 (0.0-11.0) % Eos % (Auto) 0.7 (0.0-7.0) % Baso % (Auto) 0.6 (0.0-3.0) % Neut # (Auto) 4.10 (1.7-7.0) K/uL Lymph # (Auto) 0.90 (0.90-2.90) K/uL Cannon # (Auto) 0.30 (0.00-0.90) K/UL Eos # (Auto) 0.04 (0.00-0.50) K/uL Baso # (Auto) 0.03 (0.00-0.30) K/uL Abs Immat Gran (auto) 0.02 (0.00-0.30) K/uL Imm/Tot Granulo (auto) 0.4 % Sodium 137 (135-149) mmol/L Potassium 3.8 (3.6-5.1) mmol/L Chloride 108 (96-114) mmol/L Carbon Dioxide 25 (20-32) mmol/L Anion Gap 4 L (7-15) mEq/L BUN 16 (7-30) mg/dL Creatinine 0.7 (0.5-1.5) mg/dL Estimated Creat Clear 43.40 Estimated GFR 88 ml/min Glucose 110 (60-115) mg/dL Calcium 8.8 (8.4-10.6) mg/dL Imaging Data CT angio head: Attestation: I have reviewed the pertinent imaging results. Radiologist's impression: Preliminary Report: The skull base internal carotid arteries are patent. 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 Minimal atherosclerotic narrowing of the right M2 segments. Patent basilar artery and bilateral posterior cerebral arteries. Minimal atherosclerotic plaque and narrowing of the mid basilar artery is appreciated. Dictated by Chris Freitas CT angio neck: Attestation: I have reviewed the pertinent imaging results. Radiologist's impression: Preliminary Report: The thoracic aorta is nonaneurysmal. The common carotid arteries are patent. The carotid bifurcations demonstrate no significant atherosclerotic calcification. Patent distal internal carotid arteries. Dominant right and mildly hypoplastic left vertebral artery. CT scan - head: Attestation: I have reviewed the pertinent imaging results. My impression: no acute bleed Radiologist's impression: Impression: 1. Age-related changes of the brain without acute intracranial abnormality. Discharge Plan Discharge Clinical Impression: Headache Patient Disposition: Home, Self-Care Condition: Stable Instructions: Acute Headache (DC) Additional Instructions: As we discussed, please come back to the ER right away if you have any problems specially recurrent headache, more vomiting, or if you develop other symptoms such as fever or chills, neck stiffness, numbness or weakness in your arms or l egs, blurry vision, or slurred speech. Use Zofran if needed for nausea. You can use Tylenol or ibuprofen to treat mild headaches at home. Prescriptions: New ondansetron 4 mg tablet,disintegrating 4 mg PO Q8H PRN (Reason: nausea and vomiting) Qty: 10 0RF No Action ketoconazole 2 % shampoo topical betamethasone, augmented 0.05 % lotion topical escitalopram oxalate [Lexapro] 10 mg tablet 10 mg PO QDAY Qty: 90 0RF Multivitamins PO albuterol sulfate 90 mcg/actuation HFA aerosol inhaler 2 puff inhalation Q4H PRN Follow Up/Referrals: Parul Freeman DO [Staff Physician] - Stand Alone Forms: [employer] Info Instructions
--- NOTE | 2024-02-27 13:00 | CT_ITS ---
Patient: SINDHU MCCAULEY Facility:?[facility] Patient ID:?[id number] Site Patient ID:?[id number]. Site :?[id number] Study:?CT-Neck Angio 95CC ISOVUE 370 NON ACUTE-02/27/2024 1:33:07 PM Ordering Physician:?DR. BRUNNER Final Report: CLINICAL HISTORY: Sudden onset headache. TECHNIQUE: Standard helical CT image acquisition through the neck was performed after intravenous contrast bolus enhancement. 3D and MIP reconstructions were performed at a separate workstation and permanently archived. COMPARISON: None available. 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 The common carotid arteries are patent. No significant luminal stenoses of the proximal ICAs by NASCET criteria. The more distal cervical segments of the ICAs are patent. Corrugated morphology of the mid to distal cervical ICAs, right side greater than left. The origins and cervical segments of the vertebral arteries are patent. Corrugated morphology of the distal cervical vertebral arteries. IMPRESSION: 1. 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 Otherwise, patent cervical arterial vasculature without hemodynamically significant luminal stenosis. 2. Findings suggestive of fibromuscular dysplasia. Please note that all CT scans at this facility use dose modulation, iterative reconstruction, and/or weight-based dosing when appropriate to reduce radiation dose to as low as reasonably achievable. Dictated by Jose King MD @ 02/27/2024 2:49:22 PM Signed by:?Jose King MD @02/27/2024 2:49:22 PM (Electronic Signature)
--- NOTE | 2024-02-27 13:00 | CT_ITS ---
Patient: SINDHU MCCAULEY Facility:?[facility] RIS Patient ID:?[id number] Site Patient ID:?[id number]. Site :?1945 Study:?CT-Head WITHOUT NON ACUTE-02/27/2024 1:32:01 PM Ordering Physician:?DR. BRUNNER Final Report: Indication: Sudden onset headache 6 hours prior Technique: Volumetric multidetector CT images of the head were obtained without the administration of low osmolar intravenous contrast. Comparison: None available Findings: There is no intra-axial or extra-axial fluid collection. There is no mass effect or midline shift. There is age-related cortical atrophy with mild sulcal widening and ex vacuo dilatation of the lateral ventricles. There are chronic small vessel disease changes in the subcortical and periventricular white matter without lost seymour-white differentiation. The orbits and their contents are grossly within normal limits. The bony calvarium is grossly intact. The paranasal sinuses are clear. The mastoid air cells are well aerated. Impression: 1. Age-related changes of the brain without acute intracranial abnormality. Please note that all CT scans at this facility use dose modulation, iterative reconstruction, and/or weight-based dosing when appropriate to reduce radiation dose to as low as reasonably achievable. Dictated by Chris Kohler MD @ 02/27/2024 1:54:45 PM Signed by:?Chris Kohler MD @02/27/2024 1:54:45 PM (Electronic Signature)
--- NOTE | 2024-02-27 13:00 | CT_ITS ---
Patient: SINDHU MCCAULEY Facility:?[facility] RIS Patient ID:?[id number] Site Patient ID:?[id number]. Site :?1945 Study:?CT-Head Angio 95CC ISOVUE 370 NON ACUTE-02/27/2024 1:32:42 PM Ordering Physician:?DR. BRUNNER Final Report: CLINICAL HISTORY: Sudden onset severe headache. TECHNIQUE: Standard helical CT image acquisition through the head following the administration of intravenous contrast was performed. 3D and MIP reconstructions were performed at a separate workstation and permanently archived. COMPARISON: None available. FINDINGS: No intracranial proximal large vessel occlusion. Severe stenosis of the P3 segment of the left posterior cerebral artery. Hnwr-tr-[id number] stenosis of mid inferior trunk of the right MCA. No evidence of cerebral aneurysm. No findings to suggest an arterial-venous shunting lesion. The major dural venous sinuses and deep venous system are patent. 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 Please note that all CT scans at this facility use dose modulation, iterative reconstruction, and/or weight-based dosing when appropriate to reduce radiation dose to as low as reasonably achievable. Dictated by Jose King MD @ 02/27/2024 3:13:08 PM Signed by:?Jose King MD @02/27/2024 3:13:08 PM (Electronic Signature)
[2024-02-27] MEDS: KETOROLAC 15 MG/ML inj IVP (13:12)
[2024-02-27] MEDS: diphenhydrAMINE 50 MG/ML inj 12.5 MG IVP (13:12)
[2024-02-27] MEDS: METOCLOPRAMIDE HCL 5 MG/ML INJ 10 MG IVP (13:12)
[2024-02-27] MEDS: 0.9 % SODIUM CHLORIDE 1000 ml 1,000 ML IV (13:12)
[2024-02-27 13:23] LABS: Basophils Absolute Auto 0.03 K/uL (0.00-0.30); Basophils Percent Auto 0.6 % (0.0-3.0); Eosinophils Absolute Auto 0.04 K/uL (0.00-0.50); Eosinophils Percent Auto 0.7 % (0.0-7.0); Hematocrit 39.9 % (33.0-51.0); Hemoglobin* 13.4 gm/dL (12.0-16.0); Immature Granulocytes Abs Auto 0.02 K/uL (0.00-0.30); Immature Granulocytes Pct Auto 0.4 %; Mean Corpuscular HGB Conc 34 gm/dL (32-36); Mean Corpuscular Hemoglobin 29 pg (26-34); Mean Corpuscular Volume 87 fL (80-100); Monocytes Percent Auto 5.9 % (0.0-11.0); Neutrophils Percent Auto 75.4 % (42.0-72.0); Platelet Count* 190 K/uL (140-440); RDW Coefficient of Variation % 12.3 % (11.5-15.5)
[2024-02-27 13:34] LABS: Chloride* 108 mmol/L (96-114)
[2024-02-27 13:35] LABS: Potassium* 3.8 mmol/L (3.6-5.1); Sodium* 137 mmol/L (135-149)
[2024-02-27 13:37] LABS: Anion Gap 4 mEq/L (7-15); Carbon Dioxide* 25 mmol/L (20-32); Creatinine* 0.7 mg/dL (0.5-1.5); Estimated Glomerular Filt Rate 88 ml/min
[2024-02-27 13:38] LABS: Blood Urea Nitrogen* 16 mg/dL (7-30); Calcium* 8.8 mg/dL (8.4-10.6); Glucose* 110 mg/dL (60-115)
--- OUTSIDE RECORDS SUMMARY | 2024-02-27 13:57 | XMS_ITS | Clinical Summary ---
Author Name Unknown Organization [facility] Address [place], [place] [address] Care Team Providers Care Cash Management Associate Name Role Phone Parul Freeman Primary Care Provide r Allergies Active Allergy Reactions Criticality Noted Date Comments Prednisone Vomiting 02/20/2021 Medications Medication Sig Dispensed Refills Start Date End Date Status multivitamin-minerals therapeutic (THERAGRAN-M) tablet Daily Acti ve escitalopram oxalate (LEXAPRO) 10 mg tablet Take 10 mg by mouth once daily. 03/26/2021 Active cholecalciferol (VITAMIN D3) 1,000 unit tablet Take 1,000 units by mouth once daily. 12/22/2020 Active rosuvastatin (CRESTOR) 5 mg tablet 03/20/2021 Act claudy famotidine (PEPCID) 20 mg tablet Take 1 Tablet (20 mg) by mouth 2 times daily. 0 03/28/2021 Active omeprazole (PRILOSEC) 40 mg Delayed-Release capsuleIndications:Ho arseness of voice,Gastroesophagea l reflux disease, unspecified whether esophagitis present Take 1 Capsule (40 mg) by mouth once daily. 30 Capsule 11 03/28/2021 Active DULoxetine (CYMBALTA) 30 mg Delayed-release capsule 07/10/2023 Active rosuvastatin (CRESTOR) 10 mg tablet Take 1 Tablet by mouth once daily. Active Active Problems No known active problems Encounters Date Type Department Care Team Description 02/23/2024 Telephone [facility] [address] [place] [address] Alan Medeiros MD Questions from Last 3 Months Social History Tobacco Use Types Packs/Day Years Used Date Smoking Tobacco: Never Smokeless Tobacco: Never Tobacco Cessation:Counseling Given: Yes Social Connections Answer Date Recorded Frequency of Communication with Friends and Fami ly Not on file 08/04/2023 Financial Resource Strain Answer Date R ecorded Difficulty of Paying Living Expenses Not on file 11/10/2021 Difficulty of Paying Living Expenses Not on file 11/10/2021 Sex and Gender Information Value Date Recorded Sex Assigned at Not on file Gender Identity Not on file Sexual Orientation Not on file Obstetrics History Last Filed Vital Signs Vital Sign Reading Time Taken Comments Blood Pressure 135/83 08/04/2023 8:38 AM CDT Pulse 88 08/04/2023 8:38 AM CDT Temperature 36.6 ??C (97.9 ??F) 08/04/2023 8:38 AM CD T Respiratory Rate - - Oxygen Saturation 96% 08/04/2023 8:38 AM CDT Inhaled Oxygen Concentration - - Weight 70.7 kg (155 lb 12.8 oz) 03/28/2021 3:08 PM CDT Height - - Body Mass Index - - Plan of Treatment Upcoming Encounters Date Type Department Care Team (Late st Contact Info) Description 03/24/2024 2:00 PM CDT Office Visit [facility] [address] [place] [address] Alan Medeiros MD [address] [place] [address] Health Maintenance Due Date Last Done Comments Tdap 1956 Depression screening for age 12+ 1957 BMI (ht and wt on same day) for age 18+ 1963 Hepatitis C screening for ag e 18-79 1963 Tetanus booster 1965 Zoster (shingles) series for age 50+ (1 of 2) 1995 DEXA/DXA scan for age 65+ 2010 Medicare Wellness for age 65+ 2010 Pneumococcal series for age 65+ (1 of 1 - PCV) 2010 COVID-19 vaccine series (2022-24 season) 2023 10/17/2022, 04/16/2022, 08/17/2021, Additional history exists Influenza for age 65+ 07/11/2024 Care Teams Cash Management Associate Relationship Specialty Start Date End Date Parul Freeman DO [address] [place] [address] PCP - General Family Practice 08/05/23
--- OUTSIDE RECORDS SUMMARY | 2024-02-27 13:57 | XMS_ITS | Referral Summary ---
Author Name Unknown Organization [facility] Address [address] [place] [address] Care Team Providers Care Promotion Specialist Name Role Phone Flavia Guardado MD Primary Care Provider + [facility] Unavailable Allergies Active Allergy Reactions Criticality Noted Date Comments Prednisone 02/20/2021 Medications Medication Sig Dispensed Refills Start Date End Date Status escitalopram (LEXAPRO) 10 MG tablet Take 10 mg by mouth daily Active Multiple vitamin TABS Take by mouth daily Active albuterol (ALBUTEROL) 108 (90 BASE) MCG/ACT inhalerIndications:S OB (shortness of breath) Inhale 2 puffs into the lungs every 6 hours as needed for shortness of breath / dyspnea or wheezing 1 Inhaler 1 09/12/2016 Active ibuprofen (ADVIL) 200 MG tablet Take 400 mg by mouth as needed for mild pain Active rosuvastatin (CRESTOR) 5 MG tablet Take 5 mg by mouth daily 12/22/2020 Active famotidine (PEPCID) 20 MG tablet Take 20 mg by mouth 2 times daily 02/13/2021 Active Active Problems Patient Care Coordination No te Formatting of this note migh t be different from the original. [email or web address] No additional problems on file Resolved Problems Problem Noted Date Diagnosed Date Resolved Date Thoracic or lumbosacral neur itis or radiculitis, unspecified 05/08/2015 07/07/2015 Immunizations Name Administration Dates Next Due COVID-19 MONOVALENT 12+ (Pfizer) 01/13/2021,12/11 Influenza (High Dose) 3 valent vaccine 8 Influenza Vaccine >6 months,quad, PF 08/29/2020, 10/19/2019 Pneumo Conj 13-V (2010&after) 08/29/2017 Pneumococcal 23 valent 09/12/2010 TDAP Vaccine (Adacel) 03/29/2014,05/20/2006 Td (Adult), Adsorbed 03/24/1998 Zoster vaccine, live 03/10/2008 Social History Tobacco Use Types Packs/Day Years Used Date Smoking Tobacco: Never Smokeless Tobacco: Never Alcohol Use Standard Drinks/Week Comments Yes 0 (1 standard drink = 0.6 oz pur e alcohol) 1-2 glasses wine per month PHQ-2 Answer Date Recorded PHQ-2 Score 1 03/01/2021 Adolescent Education Answer Date Record ed Getting School Help Needed Not on file 08/17 Sex and Gender Information Value Date Recorded Sex Assigned at Not on file Gender Identity Not on file Sexual Orientation Not on file Last Filed Vital Signs Vital Sign Reading Time Taken Comments Blood Pressure 133/83 03/01/2021 9:36 AM CDT Pulse 106 03/01/2021 9:36 AM CDT Temperature 36.4 ??C (97.5 ??F) 03/01/2021 9:36 AM CD T Respiratory Rate - - Oxygen Saturation 97% 03/01/2021 9:36 AM CDT Inhaled Oxygen Concentration - - Weight 70.8 kg (156 lb) 03/01/2021 9:36 AM CDT Height 167.6 cm (5' 6) 03/01/2021 9:36 AM CDT Body Mass Index 25.18 03/01/2021 9:36 AM CDT Plan of Treatment Not on file Procedures Procedure Name Priority Date/Time Associated Diagnosis Comments BASIC METABOLIC PANEL Routine 07/17/2016 LIPID PROFILE Routine 07/17/2016 from Last 3 Months or Most Recently Relevant to Health Maintenance Results * Lipid Profile (07/17/2016) Cholesterol 238 mg/dL EXTERNAL LAB Triglycerides 169 mg/dL EXTERNAL LAB HDL Cholesterol 45 mg/dL EXTERNAL LAB LDL Cholesterol Calculated 159 mg/dL EXTERNAL LAB Non HDL Cholesterol mg/dl EXTERNAL LAB AST 33 U/L EXTERNAL LAB ALT 31 U/L EXTERNAL LAB Alk Phosphatase (External) 82 EXTERNAL LAB Albumin 4.6 g/dL EXTERNAL LAB Blood specimen (specimen) 07/17/2016 Provider Outside LAB - BLOOD ORDERABL ES EXTERNAL LAB External Lab * Basic metabolic panel (07/17/2016) Sodium 145 mmol/L EXTERNAL LAB Potassium 4.8 mmol/L EXTERNAL LAB Chloride 105 mmol/L EXTERNAL LAB CO2, TOTAL 28 mmol/L EXTERNAL LAB Anion Gap mmol/L EXTERNAL LAB Glucose 94 70 - 99 mg/dL EXTERNAL LAB Urea Nitrogen 11 mg/dL EXTERNAL LAB Creatinine 0.8 mg/dL EXTERNAL LAB Calcium 9.7 mg/dL EXTERNAL LAB Blood specimen (specimen) 07/17/2016 Provider Outside LAB - BLOOD ORDERABL ES EXTERNAL LAB External Lab from Last 3 Months or Most Recently Relevant to Health Maintenance Care Teams Promotion Specialist Relationship Specialty Start Date End Date Flavia Guardado MD [facility] & [address] [address] PCP - General Family Practice 08/05/16 [facility] - [facility] [place] [address] [place] [id number] Assigned PCP 12/04/23
--- OUTSIDE RECORDS SUMMARY | 2024-02-27 13:57 | XMS_ITS | Encounter Summary ---
Author Name Unknown Organization [facility] Address [address] [place] [address] Care Team Providers Care Mechanical Maintenance Technician Name Role Phone Flavia Guardado MD Primary Care Provider + Haley Gayle DO Unavailable [phone] Clinic - [facility] Unavailable Encounter Details Date Type Department Care Team (Late st Contact Info) Description 02/19/2021 [facility] [address] [place] [address] Drive [address] [place] [address] Haley Rí[place] [address] [place] [address] Social History Tobacco Use Types Packs/Day Years Used Date Smoking Tobacco: Never Alcohol Use Standard Drinks/Week Comments Yes 0 (1 standard drink = 0.6 oz pur e alcohol) rare Sex and Gender Information Value Date Recorded Sex Assigned at Not on file Gender Identity Not on file Sexual Orientation Not on file documented as of this encounter Plan of Treatment Not on file documented as of this encounter Visit Diagnoses Not on filedocumented in this encounter Care Teams Mechanical Maintenance Technician Relationship Specialty Start Date End Date Flavia Guardado MD [facility] & [address] [address] PCP - General Family Practice 08/05/16 Haley Gayle DO [address] [place] [address] Assigned PCP 02/01/21 10/18/22 [facility] - [facility] [address] [place] [id number] Assigned PCP 12/04/23 documented as of this encounter
--- OUTSIDE RECORDS SUMMARY | 2024-02-27 13:57 | XMS_ITS | Clinical Summary ---
Author Name Unknown Organization [facility] Address [address] [place] [address] Care Team Providers Care [employer] Emergency Services Dispatcher Name Role Phone Unavailable Primary Care Provider Unavailabl e Source Comments PLEASE NOTE, if this patient is a minor, it may be UNLAWFUL to discuss sensitive information that is contained in these records (such as FAMILY PLANNING, MENTAL HEALTH or SUBSTANCE ABUSE) with the minor patient's parent or other person without the patient's specific authorization.[facility] Social History Tobacco Use Types Packs/Day Years Used Date Smoking Tobacco: Never Assessed Social Connections Answer Date Recorded Social Connections and Isolation 0 03/03/2021 Financial Resource Strain Answer Date R ecorded Financial Resource Strain 0 2020 Stress Answer Date Recorded Stress 0 03/03/2021 Physical Activity Answer Date Recorded Physical Activity 0 03/03/2021 Food Insecurity Answer Date Recorded Food 0 03/03/2021 Transportation Needs Answer Date Record ed Transportation 0 03/03/2021 Housing Stability Answer Date Recorded Housing 0 03/03/2021 Safety and Environment Answer Date Fly rded Safety 0 03/03/2021 Utilities Answer Date Recorded Utilities 0 03/03/2021 Employment Answer Date Recorded Employment 0 03/03/2021 Sex and Gender Information Value Date Recorded Sex Assigned at Not on file Gender Identity Not on file Sexual Orientation Not on file Plan of Treatment Not on file
--- OUTSIDE RECORDS SUMMARY | 2024-02-27 13:57 | XMS_ITS | Clinical Summary ---
Author Name Unknown Organization [facility] Address [address] [place] [address] Care Team Providers Care Bag Presser Name Role Phone Flavia Guardado MD Primary Care Provider + [facility] Unavailable Allergies Active Allergy Reactions Criticality Noted [...] migh t be different from the original. [email or web address] No additional problems on file Resolved Problems [...] 1945 DEXA 1945 HEPATITIS C SCREENING 1963 RSV VACCINE ( & 60+) (1 - 1-dose 60+ series) 2005 ZOSTER IMMUNIZATION (2 of 3) 05/05/2008 03/10/2008 MEDICARE ANNUAL WELLNESS VISIT 2010 LIPID 07/17/2017 07/17/2016 GLUCOSE 07/17/2019 07/17/2016 FALL RISK ASSESSMENT 03/01/2022 03/01/2021 COVID-19 Vaccine (3 - season) 2023 01/13/2021, 12/23/2020 INFLUENZA VACCINE (#1) 2023 0, 10/19/2019, 09/10/2018, Additional history exists PHQ-2 (once per calendar year) 2023 03/01/2021 DTAP/TDAP/TD IMMUNIZATION (3 - Td or Tdap) 03/29/2024 03/29/2014, 03/29/2014, 05/20/2006, Additional history exists Pneumococcal Vaccine: 65+ Years Completed 08/29/2017, 09/12/2010 HPV IMMUNIZATION Aged Out No longer e ligible based on patient's age to complete this topic IPV IMMUNIZATION Aged Out No longer e ligible based on patient's age to complete this topic MENINGITIS IMMUNIZATION Aged Out No l onger eligible based on patient's age to complete this topic RSV MONOCLONAL ANTIBODY Aged Out No l onger eligible based on patient's age to complete this topic Procedures Procedure Name Priority Date/Time Associated Diagnosis [...] Recently Relevant to Health Maintenance Care Teams Bag Presser Relationship Specialty Start Date End Date Flavia Guardado MD [facility] [address] [place] [address] PCP - General Family Practice 08/05/16 [facility] - [facility] [address] [place] [id number] Assigned PCP 12/04/23
--- OUTSIDE RECORDS SUMMARY | 2024-02-27 13:57 | XMS_ITS | Data Portability ---
Author Name Unknown Address [address] [place] [address] Phone [phone] Organization [facility] Alicia blair, [facility] Address [address] [place] [address] Assessment No assessment recorded. Plan of Treatment Reminders Order Date Submit Date Provider Last Modified By Organization Details Last Modified Time Details Appointments None recorded. Lab urinalysi s, dipstick 2022 023 wilmer [facility], [address], [place], [address], 3 10:56:21 urinalysi s, dipstick 2021 022 [email or web address] Not available 2 11:45:31 urinalysi s, dipstick 2020 021 [email or web address] Not available 1 12:50:54 Referral pelvic floor therapy referral 2022 023 yue Lazo, [address] [place], [address], 3 07:50:55 Procedures None recorded. Surgeries None recorded. Imaging None recorded. Medication Orders None recorded. Patient TargetsNo targets recorded. Patient InstructionsNo instructions recorded. Reason for Referral Pelvic Floor Therapy Referra l for Mixed urinary incontinence Referring Physician: Nori Easley, Urology, Encounter Date: 01/16/2023 Results Created Date Observation Date Name Description Value Unit Range Abnormal Flag LastModifiedBy Organization Detail LastModifiedTime 05/15/2021 urina lysis , dipst ick pH-Status 7.0 Not Available [facility] [address], [place], [address], 05/15/2021 12:40:17 05/15/2021 urina lysis , dipst ick Nitrates-Sta tus negati ve Not Available [facility] [address], [place], [address], 05/15/2021 12:40:17 05/15/2021 urina lysis , dipst ick Blood-Status Negati ve Not Available [facility] [address], [place], [address], 05/15/2021 12:40:17 05/15/2021 urina lysis , dipst ick Leuko-Status Negati ve Not Available [facility] [address], [place], [address], 05/15/2021 12:40:17 01/16/20 22 01/15/2022 urina lysis , dipst ick Color-Status Yellow Not Available [facility] [address], [place], [address], 01/15/2022 11:42:16 01/16/20 22 01/15/2022 urina lysis , dipst ick Clarity-Stat us Clear Not Available [facility] [address], [place], [address], 01/15/2022 11:42:16 01/16/20 22 01/15/2022 urina lysis , dipst ick Glucose-Stat us Negati ve Not Available [facility] [address], [place], [address], 01/15/2022 11:42:16 01/16/20 22 01/15/2022 urina lysis , dipst ick Bilirubin-St atus Negati ve Not Available [facility] [address], [place], [address], 01/15/2022 11:42:16 01/16/20 22 01/15/2022 urina lysis , dipst ick Ketones-Stat us Not Available [facility] [address], [place], [address], 01/15/2022 11:42:16 01/16/20 22 01/15/2022 urina lysis , dipst ick Nitrates-Sta tus negati ve Not Available [facility] [address], [place], [address], 01/15/2022 11:42:16 01/16/20 22 01/15/2022 urina lysis , dipst ick Blood-Status Trace Not Available [facility] [address], [place], [address], 01/15/2022 11:42:16 01/16/20 22 01/15/2022 urina lysis , dipst ick Leuko-Status Small Not Available [facility] [address], [place], [address], 01/15/2022 11:42:16 01/16/20 22 01/15/2022 urina lysis , dipst ick Total Urine Volume 20cc Not Available [facility] [address], [place], [address], 01/15/2022 11:42:16 01/17/20 23 01/16/2023 urina lysis , dipst ick Color-Status Yellow Not Available [facility] [address], [place], [address], 01/16/2023 10:55:40 01/17/20 23 01/16/2023 urina lysis , dipst ick Clarity-Stat us Clear Not Available [facility] [address], [place], [address], 01/16/2023 10:55:40 01/17/20 23 01/16/2023 urina lysis , dipst ick pH-Status 6.5 Not Available [facility] [address], [place], [address], 01/16/2023 10:55:40 01/17/20 23 01/16/2023 urina lysis , dipst ick Blood-Status Small Not Available [facility] [address], [place], [address], 01/16/2023 10:55:40 01/17/20 22 01/15/2022 bladd er scan (PROC ) No observ ation record ed. BARCODE Not Available 01/16/2022 09:46:52 Result Notes None recorded. Problems Name Status Onset Date Resolution Date Notes Provider Name and Address Organization Details Recorded Time Overactive bladder Active 018 N32.81 : Overactive bladder Not Available [facility] 04/27/[facility] 02:01:25 Problem Notes None recorded. Procedures Surgical History Date Name Laterality Status Provider Name and Address Organization Details Recorded Time 01/17/20 23 CystoscopyFemale completed Poncho Coleman PA-C [address] [place] [address],[address], [address], [facility] 01/16/2023 11:09:28 01/17/20 23 Bladder Scan completed Louann huff [facility] 01/16/2023 11:08:05 01/16/20 22 CystoscopyFemale completed Nori Easley MD [address] [place] [address],[address] [place] [address], [address], [facility] 01/15/2022 12:11:13 05/15/20 21 CystoscopyFemale completed Nori Easley MD [address] [place] [address],[address], [address], [facility] 05/15/2021 12:50:39 Imaging Results Imaging Date Name Status LastModified by Organiz ation Details LastModified Time 01/15/2022 bladder scan (PROC) completed BARCODE Information not available 01/16/2022 09:46:52 Procedure Notes None recorded. Medical Equipment None Reported. Allergies Allergen ID Allergen Name Allergen Category Reaction Reaction Severity Criticality Documentation Date Start Date Code Code System Note Provider Name and Address Organization Details Recorded Time 837032 prednison e medicatio n vomiting Not available Not available 05/15/2021 8640 RxNorm Nori Easley MD [address] [place] [address], [address], [facility] 12:37:19 Medications Name Sig Start Date Stop Date Status Note LastModified by Organization Details LastModified Time methocarbam ol 500 mg tablet TAKE 1 TABLET BY MOUTH 4 TIMES DAILY NEEDED 05/15 completed Not Available Not Available Not Available omeprazole 40 mg capsule,del ayed release 01/16 completed Not Available Not Available Not Available famotidine 20 mg tablet TAKE 1 TABLET BY MOUTH ONCE DAILY FOR 30 DAYS active Not Available Not Available No t Available lansoprazol e 30 mg capsule,del ayed release TAKE 1 CAPSULE BY MOUTH ONCE DAILY 05/15 completed Not Available Not Available Not Available nystatin-tr iamcinolone 100,000 unit/g-0.1 % topical cream APPLY CREAM TOPICALLY TO RASH TWICE DAILY FOR 10 DAYS THEN NEEDED 01/16 completed Not Available Not Available Not Available codeine 10 mg-guaifene sin 100 mg/5 mL oral liquid TAKE 5 TO 10 ML BY MOUTH EVERY 4 TO 6 HOURS NEEDED FOR COUGH 01/16 completed Not Available Not Available Not Available albuterol sulfate HFA 90 mcg/actuati on aerosol inhaler INHALE 2 PUFFS BY MOUTH EVERY 4 HOURS NEEDED 01/16 completed Not Available Not Available Not Available escitalopra m 10 mg tablet TAKE 1 TABLET BY MOUTH ONCE DAILY active Not Available Not Available No t Available rosuvastati n 5 mg tablet TAKE 1 TABLET BY MOUTH DAILY 05/15 completed Not Available Not Available Not Available rosuvastati n 10 mg tablet TAKE 1 TABLET BY MOUTH ONCE DAILY active Not Available Not Available No t Available cholecalcif lesia (vitamin D3) 25 mcg (1,000 unit) tablet TAKE 1 TABLET BY MOUTH DAILY active Not Available Not Available No t Available Paxlovid 300 mg (150 mg x 2)-100 mg tablets in a dose pack TAKE 2 TABLETS BY MOUTH ORALLY PER PACKAGE DIRECTION S NIRMATREL VIR 300 MG WITH RITONAVIR 100 MG, ADMINISTE RED TOGETHER, TWICE DAILY FOR 5 DAYS. 01/16 completed Not Available Not Available Not Available Vitals Date Recorded Body height Body mass index (BMI) Body weight Provider Name and Address Organization Details Last Updated DateTime 01/16/2023 167.64 cm 25.2 kg/m2 84833.41 g Yolanda huff [facility] 01/16/2023 10:54:00 Date Recorded Body height Body mass index (BMI) Body weight Provider Name and Address Organization Details Last Updated DateTime 05/15/2021 167.64 cm 25.2 kg/m2 29025.41 g Nori Easley MD [address] [place] [address], [address] [place] [address] 05/15/2021 12:36:47 Date Recorded Body height Body mass index (BMI) Body weight Provider Name and Address Organization Details Last Updated DateTime 01/15/2022 167.64 cm 25.2 kg/m2 02306.41 g Louann huff [facility] 01/15/2022 11:40:00 Social History Question Answer Notes LastModified by Organizat ion Details LastModified Time Tobacco Smoking Status Never Smoker Nori Easley MD [address] [place] [address], [address] 05/15/2021 12:38:29 What Is Your Level Of Alcohol Consumption? Occasional Information not available 05/15/2021 What Is Your Level Of Caffeine Consumption? Occasional Information not available 05/15/2021 How Much Tobacco Do You Chew? None Information not available 05/15/2021 Do You Or Have You Ever Used E-cigarettes Or Vape? Never Used Electronic Cigarettes Information not available 05/15/2021 Preferred Language Swedish Information not available 05/15/2021 Number Of Pregnancies 1 1 Adopted Child [email or web address] Information not available 05/15/2021 Number Of Vaginal Deliveries 1 Information not available 05/15/2021 Recreational Drug Use No Information not available 05/15/2021 Could You Be ? No Information not available 05/15/2021 Marital Status lsross Informatio n not available 05/15/2021 What Was The Date Of Your Most Recent Tobacco Screening? 01/16/2023 kneubert Information not available 01/16/2023 Do You Or Have You Ever Used Smokeless Tobacco? Never Used Smokeless Tobacco Information not available 05/15/2021 How Much Tobacco Do You Smoke? No Information not available 05/15/2021 How Many Years Have You Smoked Tobacco? 0 Information not available 05/15/2021 Sex: Female Functional Status None recorded. Mental Status None recorded. Family History Nothing Reported. Medical History Condition Response Sexually Transmitted Infection N Diabetes N Bleeding Disorder N High Blood Pressure Y Kidney Stones N Cancer N Depression N Lung Disease Y High Cholesterol Y GERD/Acid Reflux Y Heart Disease N Gynecological History Statement/Question Response Irregular periods N Leaking urine with intercourse N Hormone Therapy N Heavy periods N Pain with intercourse N Sexually Active? N Obstetrics History GPAL:G 2 P 0 0 0 0 Immunizations Vaccine Type Date Status Provider Name and Address Organization Details Recorded Time pneumococcal polysaccharide PPV23 08/10/2017 completed Not Available [facility] 2019 00:42:14 Past Encounters Encounter ID Performer Location Encounter Start Date Encounter Closed Date Diagnosis/Indication Diagnosis SNOMED-CT Code [id number] MD Ann Raines [address] [address] 05/15/2021 12:04:59 05/18/2021 16:08:54 Overactive bladder 218188467 Bladder polyp 068493655 [id number] MD Ann Raines [address] [place] [address] 01/15/2022 11:31:10 01/18/2022 10:35:53 Chronic cystitis 98991747 Overactive bladder 28789 7000 [id number] MD Francis Rainesa [address] [place] [address] 01/16/2023 10:19:59 01/20/2023 11:29:25 Bladder polyp 079837370 Mixed urin alan incontinence 228251390 Health Concerns Section Related Observation LastModified by Organization Detai ls LastModified Time None Recorded Concern Status LastModified by Organization Details LastModified Time None Recorded Advance Directives Directive None Recorded Payers Encounter Date Sequence Insurance Name Policy Number Policy Morales Covered Member ID Morales Member ID Guarantor Name 01/16/2023 1 [employer] - DOS ON OR AFTER 19 (MEDICARE REPLACEMENT/ ADVANTAGE - HMO) [id number] 2 Anabel A Velin [id number] Anabel A Velin 01/15/2022 1 [employer] - DOS ON OR AFTER 19 (MEDICARE REPLACEMENT/ ADVANTAGE - HMO) [id number] Anabel A Velin [id number] Anabel A Velin 05/15/2021 1 [employer] - DOS PRIOR TO 2021 Anabel A Velin [id number] Anabel A Velin Notes Date Note Type Note Provider Name and Address Organization Details Recorded Time 05/15/2021 text/html HPI Notes: 1. sh e is better with OAB symptoms, she tried medications(ditropan) with no change in symptoms. 2. here for bladder check (s/p fulguraton of the small polyp in 11/2018) Cysto is normal today; with 2 areas of hypervascularity Nori Easley MD [address] [place] [address],[address], [address], [facility] 05/15/2021 12:51:20 01/15/2022 text/html HPI Notes: 1. sh e is better with OAB symptoms, she tried medications(ditropan) with no change in symptoms. She does behavioral modification now. Her bladder score is 12/24 2. here for bladder check (s/p fulguration of the small polyp in 11/2018) Cysto is normal today. Nori Easley MD [address] [place] [address],[address], [address], [facility] 01/15/2022 12:11:43 01/16/2023 text/html HPI Notes: 77 yo female who presents for annual follow up and cystoscopy. H/o Bladder Polyp: -s/p fulguration of the small polyp in 11/2018 -Present for annual bladder check with cystoscopy today OAB/LEATHA: Currently managed with diet modification. Notes some incontinence with cough and sneeze as well as urge, however incontinence with urge is if she wait too long UDI6= 09/02 IIQ7=07/06 Previous therapies: -oxybutynin (d/c not helpful) UA: Small blood PVR: 0 cc Pelvic: Vaginal dryness, no POP, negatives stress test Cysto is normal Nori Easley MD [address] [facility] [address] [facility],[address], [place], [address], [facility] 01/16/2023 20:50:00 OBGyn Episode No OBEpisode recorded.
[2024-02-27 14:01] LABS: Slide Review Reflex No
[2024-02-27 15:00] VITALS: BP 140/74; PULSE 71; RESP 12; O2SAT 98
[2024-02-27 15:17] VITALS: BP 140/74; PULSE 71; RESP 12; TEMP 36.5
--- OUTSIDE RECORDS SUMMARY | 2024-02-27 20:26 | XMS_ITS | Continuity of Care Document ---
Author Name Unknown Organization [facility] Address [address] [address] [place] [address] Phone Care Team Providers Care Hat Block Maker Name Role Phone Unavailable Unavailable Unavailable Allergies, Adverse Reactions, Alerts Substance Reaction Status Criticality No Known allergies Medications Medication Instructions Dosage Effective Dates (start - stop) Status Comments citalopram 20 mg Tab take 1 tablet (20MG ) by oral route every day 20 MG - Active Procedures Procedure Date Ugi Endo; W/insrt Guide Wire Ugi Endo; W/bx 1/mx Level Iv-surg Path Gross/micro 11 Advance Directives Directive Yes / No Effective Date File Name Resuscitation Not Answered N/A N/A Life Support Not Answered N/A N/A Intubation Not Answered N/A N/A Antibiotics Not Answered N/A N/A IV Fluid Support Not Answered N/A N/A Tube Feed Not Answered N/A N/A Other Directive N/A N/A WARNING:The information contained in this section is historical and is provided for information only and does not constitute a legal document or any assurance that the information is still accurate. Please verify the information with the godfrey of the legal document before using it for clinical purposes. Encounters Encounter Description Practice Location Reason(s) For Visit Diagnoses Date Provider Providers Copied on Encounter [facility], [address] [address], [place], [place], [id number], tel:[phone] [facility] Dysphagia, Unspecified No Information Referring Provider: Tremaine Urrutia MD, [address] [place], [address]. tel:[phone] Family History Family Member Type Diagnosis Age At Onset No Information Payers Payer name Insurance type Covered constitution party ID Authoridrisleslie concepcion(s) Blue Cross [place] [employer] [place] [id number] Social History Type Description Quantity Date Captured Comments Alcohol Use Details Unknown Caffeine Use Details Unknown Tobacco Use Status No Information Smoking Status No Information Sex Female Chief Complaint And Reason For Visit No Information Reason For Referral Reason For Referral No Information History Of Present Illness Encounter Date Complaint History Of Prese nt Illness No Information Functional Status Date Functional Assessmen t No Information Instructions Date Instruction Additional Infor mation No Information Assessments Type Assessment Date No Information Patient Care Teams Name Effective Dates (start - stop) Status Members No Information
--- OUTSIDE RECORDS SUMMARY | 2024-02-27 20:26 | XMS_ITS | Referral Summary ---
Author Name Unknown Organization [facility] Address [address] [place] [address] Care Team Providers Care Automotive Tire Worker Name Role Phone Flavia Guardado MD Primary Care Provider + [facility] Unavailable Allergies Active Allergy Reactions Criticality Noted [...] migh t be different from the original. [email or web address] No additional problems on file Resolved Problems [...] Recently Relevant to Health Maintenance Care Teams Automotive Tire Worker Relationship Specialty Start Date End Date Flavia Guardado MD [facility] & [address] [address] PCP - General Family Practice 08/05/16 [facility] - [facility] [place] [address] [id number] Assigned PCP 12/04/23
--- OUTSIDE RECORDS SUMMARY | 2024-02-27 20:26 | XMS_ITS | Clinical Summary ---
Author Name Unknown Organization [facility] Address [address] [place] [address] Care Team Providers Care Security Infrastructure Engineer Name Role Phone Unavailable Primary Care Provider [...]
--- OUTSIDE RECORDS SUMMARY | 2024-02-27 20:26 | XMS_ITS | Clinical Summary ---
Author Name Unknown Organization [facility] Address [address] [place] [address] Care Team Providers Care Lead Material Handler Name Role Phone Flavia Guardado MD Primary Care Provider + [facility] Unavailable Allergies Active Allergy Reactions Criticality Noted [...] migh t be different from the original. [email or web address] No additional problems on file Resolved Problems [...] Recently Relevant to Health Maintenance Care Teams Lead Material Handler Relationship Specialty Start Date End Date Flavia Guardado MD [facility] [address] [place] [address] PCP - General Family Practice 08/05/16 Clinic - [facility] [address] [id number] Assigned PCP 12/04/23
--- OUTSIDE RECORDS SUMMARY | 2024-02-27 20:26 | XMS_ITS | Encounter Summary ---
Author Name Unknown Organization [facility] Address [address] [place] [address] Care Team Providers Care Residential Real Estate Sales Manager Name Role Phone Flavia Guardado MD Primary Care Provider + Haley Gayle DO Unavailable [phone] Clinic - [facility] Unavailable Encounter Details Date Type Department Care Team (Late st Contact Info) Description 02/19/2021 [facility] [address] [place] [address] Drive [address] [place] [address] Haley Rí[place] [address] [place] [address] Social History Tobacco Use Types Packs/Day [...] on filedocumented in this encounter Care Teams Residential Real Estate Sales Manager Relationship Specialty Start Date End Date Flavia Guardado MD [facility] & [address] [address] PCP - General Family Practice 08/05/16 Haley Gayle DO [address] [place] [address] Assigned PCP 02/01/21 10/18/22 Clinic - [facility] [address] [place] [id number] Assigned PCP 12/04/23 documented as of this encounter
--- OUTSIDE RECORDS SUMMARY | 2024-02-27 20:26 | XMS_ITS | Clinical Summary ---
Author Name Unknown Organization [facility] Address [place], [place] [address] Care Team Providers Care White Metal Caster Name Role Phone Parul Freeman Primary Care [...] Type Department Care Team Description 02/23/2024 Telephone [facility] [address] [place] [address] Alan Medeiros MD Questions from [...] Description 03/24/2024 2:00 PM CDT Office Visit [facility] [address] [place] [address] Alan Medeiros MD [address] [place] [address] Health Maintenance Due Date Last Done Comments [...] Influenza for age 65+ 07/11/2024 Care Teams White Metal Caster Relationship Specialty Start Date End Date Parul Freeman DO [address] [place] [address] PCP - General Family Practice 08/05/23
== END 2024-02-27 15:18 | disposition home or self-care (01) ==
PROVIDERS: Emergency Provider Emergency Medicine; PCP Physician Assistant Medical
DX: R51.9 Headache, unspecified (principal)
CPT/HCPCS: 36415; 70450; 70496; 70498; 80048; 85025; 96374; 96375; 99284; J1200; J1885; J2765; J7030; Q9967

== ENCOUNTER 2024-06-07 09:29 | Outpatient (CLI) | payer MEDICARE, SELFPAY ==
--- OUTSIDE RECORDS SUMMARY | 2024-06-07 09:34 | XMS_ITS | Clinical Summary ---
Author Organization [place] Address [address] [place] [address] Care Team Providers Care Primary Care Pediatrician Name Role Phone Emilie Carlson DO Unavailable [phone] Esther Lee PA-C Primary Care Provider [phone] [place] Emilie Garcianifer DO Unavailable [phone] Allergies Active Allergy Reactions Criticality Noted Date [...] mouth as needed for mild pain Active ondansetron (ZOFRAN ODT) 4 MG ODT tabIndications:Local ized edema,Migraine without aura and without status migrainosus, not intractable,Atherosc lerosis of nightmute coronary artery of nightmute heart without angina pectoris Take 1 tablet (4 mg) by mouth every 8 hours as needed for nausea 10 tablet 4 04/29/2024 Active Active Problems Patient Care Coordination No te Formatting of this note migh t be different from the original. [email or web address] No additional problems on file Resolved Problems Problem Noted Date Diagnosed Date Resolved Date Thoracic or lumbosacral neur itis or radiculitis, unspecified 05/08/2015 07/07/2015 Encounters Date Type Department Care Team Description 05/04/2024 External Order Results [facility] [address] [place] [address] Outside, Provider 04/29/2024 9:45 AM CDT Office Visit [facility] [id number] [place] [address] [address] [place] [address] Emilie Carlson, Localized edema (Primary Dx); Migraine without aura and without status migrainosus, not intractable; 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 04/29/2024 Travel 04/27/2024 Travel from Last 3 Months Immunizations Name Administration Dates Next Due COVID-19 [...] Never Smokeless Tobacco: Never Tobacco Cessation:Counseling Given: Not Answered Alcohol Use Standard Drinks/Week Comments Yes 0 (1 standard drink = 0.6 oz pur e alcohol) 1-2 glasses wine per month PHQ-2 Answer Date Recorded PHQ-2 Score 2 04/29/2024 Adolescent Education Answer Date Record ed Getting School Help Needed Not on file 08/17 Sex and Gender Information Value Date Recorded Sex Assigned at Not on file Gender Identity Not on file Sexual Orientation Not on file Last Filed Vital Signs Vital Sign Reading Time Taken Comments Blood Pressure 118/88 04/29/2024 9:46 AM CDT Pulse 90 04/29/2024 9:46 AM CDT Temperature 36.4 ??C (97.5 ??F) 03/01/2021 9:36 AM CD T Respiratory Rate - - Oxygen Saturation 97% 04/29/2024 9:46 AM CDT Inhaled Oxygen Concentration - - Weight 69.9 kg (154 lb) 04/29/2024 9:46 AM CDT Height 167.6 cm (5' 6) 04/29/2024 9:46 AM CDT Body Mass Index 24.86 04/29/2024 9:46 AM CDT Plan of Treatment Upcoming Encounters Date Type Department Care Team (Late st Contact Info) Description 06/17/2024 9:45 AM CDT Appointment [facility] [address] [facility] [address] [place] [address] Emilie Carlson, [address] [place], [place] [id number] Health Maintenance Due Date Last Done Comments ADVANCE CARE PLANNING 1945 ANNUAL REVIEW OF HM ORDERS 1945 DEXA 1945 HEPATITIS C SCREENING 1963 RSV VACCINE ( & 60+) (1 - 1-dose 60+ series) 2005 ZOSTER IMMUNIZATION (2 of 3) 05/05/2008 03/10/2008 MEDICARE ANNUAL WELLNESS VISIT 2010 GLUCOSE 07/17/2019 07/17/2016 LIPID 07/17/2021 07/17/2016 FALL RISK ASSESSMENT 03/01/2022 03/01/2021 COVID-19 Vaccine ( season) 2024 10/30/2023, 10/17/2022, 04/16/2022, Additional history exists DTAP/TDAP/TD IMMUNIZATION (3 - Td or Tdap) 03/29/2024 03/29/2014, 05/20/2006, 03/24/1998 INFLUENZA VACCINE (#1) 2024 2, 08/29/2020, 10/19/2019, Additional history exists Pneumococcal Vaccine: 65+ Years Completed 08/29/2017, 08/10/2017, 09/12/2010 PHQ-2 (once per calendar year) Completed 04/29/2024, 03/01/2021 HPV IMMUNIZATION Aged Out No longer e [...] Provider Outside LAB - BLOOD ORDERABL ES Performing Organization Address City/[facility]/ZIP Co de Phone Number EXTERNAL LAB External Lab * Basic metabolic [...] Recently Relevant to Health Maintenance Care Teams Primary Care Pediatrician Relationship Specialty Start Date End Date Esther Lee PA-C [address] [id number] PCP - General 04/29/24 Emilie Carlson DO [address] [place] [id number] Physician Cardiovascular Disease 03/25/24 Emilie Carlson DO [address] [place] [id number] Assigned Heart and Vascular Provider 05/02/24
--- OUTSIDE RECORDS SUMMARY | 2024-06-07 09:34 | XMS_ITS | Encounter Summary ---
Author Organization [place] Address [address] [facility] 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 Emilie Carlson DO [address] [facility] [address] [place] [address] Referral ID Status Reason Start Date Expiration Date V isits Requested Visits Authorized [id number] Authorized 04/30/2024 04/30/2025 1 1 * CV Testing (Routine) - Authorized Specialty Diagnoses / Procedures Referred By Contcandice cotto Referred To Contact Cardiology Diagnoses Localized edema Migraine without aura and without status migrainosus, not intractable 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 Procedures Echocardiogram Complete ZZHC TTE W/DOPPLER, COMPLETE ZZHC ECHO COMPLETE W DOPPLER W CONTRAST ZZHC ECHO COMPLETE W DOPPLER W/O CONTRAST ZZHC IV PUSH SINGLE, INITIAL SUBSTANCE ZZHC US GUIDE FOR PERICARDIOCENTESIS ZZHC ECHO MYOCARD BX ZZC INJECTION, PERFLUTREN LIPID MICROSPHERES, PER ML ZZHC STATISTIC IV PUSH SINGLE INITIAL SUBSTANCE IA ECHO MYOCARD BX IA INJECTION, PERFLUTREN LIPID MICROSPHERES, PER ML IA TTE W/DOPPLER, COMPLETE IA IV PUSH SINGLE, INITIAL SUBSTANCE IA TTE W/DOPPLER, COMPLETE IA TTE W/DOPPLER, COMPLETE HC US GUIDE FOR PERICARDIOCENTESIS HC ECHO MYOCARD BX HC IV PUSH SINGLE, INITIAL SUBSTANCE HC STATISTIC IV PUSH SINGLE INITIAL SUBSTANCE HC ECHO COMPLETE W DOPPLER W CONTRAST HC ECHO COMPLETE W DOPPLER W/O CONTRAST Emilie Carlson DO [address] [place] [address] [facility] [address] [facility] [address] [place] [address] Referral ID Status Reason Start Date Expiration Date V isits Requested Visits Authorized [id number] Authorized 04/29/2024 04/29/2025 1 1 Reason for Visit * Reason Comments New Patient Re-establish care pe r patient, fatigue and edema Encounter Details Date Type Department Care Team (Late st Contact Info) Description 04/29/2024 9:45 AM CDT Office Visit 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 She was given some kind of cocktail and IV fluids as well as Zofran for nausea which was helpful. However her symptoms have recurred 3 times since her visit. She was told that it might have something to do with her heart so she scheduled this appointment. She has had some mild lower extremity edema recently intermittently. I have seen her in the distant past last in 2016 for symptoms of chest pain. She denies any difficulty with chest discomfort or shortness of breath but she did break down into tears today stating that she just lost her best friend and attended her yesterday. She seems very frustrated and tearful about her ongoing headaches. I reviewed her ER visits which did include a CT scan to have some atherosclerosis in the intracranial arteries but her carotid arteries did not demonstrate any atherosclerosis, chest x-ray was negative. I also reviewed an EKG that was done in February which demonstrates a normal sinus rhythm without ac [place] ST or T wave abnormality. She has not had any new medication changes, she has been on Lexapro for many years. Exam today is unremarkable. She does have mild varicose veins but no evidence of peripheral edema on exam today Summary 1. Migraine headaches-no cardiac etiology likely, can order an echocardiogram to look for intra-atrial shunting and because of lower extremity edema. Because she was here and I did give her a prescription for Zofran for the nausea related to her headaches and recommended she purchase some Excedrin Migraine. I also encouraged her to follow-up with her primary care provider for her recurrent headaches 2. Lower extremity edema-has evidence of varicose veins we talked about compression socks. Will also order an echocardiogram to look for any cardiac etiology. Please feel free to contact me with any questions given regards to her care Today's clinic visit entailed: Review of external notes as documented elsewhere in note Review of the result(s) of each unique test - CT head, CXR, ECG Ordering of each unique test Prescription drug management Provider Link to [facility] Help Grid Orders Placed This Encounter Procedures Echocardiogram Complete Orders Placed This Encounter Medications ondansetron (ZOFRAN ODT) 4 MG ODT tab Sig: Take 1 tablet (4 mg) by mouth every 8 hours as needed for nausea Dispense: 10 tablet Refill: 4 Medications Discontinued During This Encounter Medication Reason famotidine (PEPCID) 20 MG tablet Stopped by Patient (No AVS) rosuvastatin (CRESTOR) 5 MG tablet Stopped by Patient (No AVS) Encounter Diagnoses Name Primary? 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 CURRENT MEDICATIONS: Current Outpatient Medications Medication Sig Dispense Refill albuterol (ALBUTEROL) 108 (90 BASE) MCG/ACT inhaler Inhale 2 puffs into the lungs every 6 hours as needed for shortness of breath / dyspnea or wheezing 1 Inhaler 1 escitalopram (LEXAPRO) 10 MG tablet Take 10 mg by mouth daily ibuprofen (ADVIL) 200 MG tablet Take 400 mg by mouth as needed for mild pain Multiple vitamin TABS Take by mouth daily ondansetron (ZOFRAN ODT) 4 MG ODT tab Take 1 tablet (4 mg) by mouth every 8 hours as needed for nausea 10 tablet 4 ALLERGIES Allergies Allergen Reactions Prednisone PAST MEDICAL HISTORY: Past Medical History: Diagnosis Date Anxiety and depression Asthma, intermittent Basal cell carcinoma 2014 On Nose Chest heaviness Depressive disorder Hyperlipidemia Shortness of breath ARENAS PAST SURGICAL HISTORY: Past Surgical History: Procedure Laterality Date BIOPSY 2014 COLONOSCOPY 2017 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 1975 Partial Hyst HYSTERECTOMY SHOULDER SURGERY FAMILY HISTORY: Family History Problem Relation Age of Onset Hypertension Mother Hyperlipidemia Mother Other Cancer Mother Liver Anxiety Disorder Mother Colon Cancer Father Substance Abuse Father Diabetes Brother SOCIAL HISTORY: Social History Socioeconomic History Marital status: Spouse name: None Number of children: None Years of education: None Highest education level: None Tobacco Use Smoking status: Never Smokeless tobacco: Never Substance and Sexual Activity Alcohol use: Yes Alcohol/week: 0.0 standard drinks of alcohol Comment: 1-2 glasses wine per month Drug use: Never Sexual activity: Not Currently Partners: Male control/protection: Post-menopausal Other Topics Concern Caffeine Concern Yes Comment: 4-5 cups of coffee daily Sleep Concern Yes Comment: sleep apnea c-pap Special Diet No Exercise No Comment: walking 2-3x per week Parent/sibling w/ CABG, GA or angioplasty before 65F 55M? No Social Determinants of Health Received from [employer] Food Insecurity: Not on File (03/03/2021) Received from [employer] Food Insecurity Food: 0 Transportation Needs: Not on File (03/03/2021) Received from [employer] Transportation Needs Transportation: 0 Physical Activity: Not on File (03/03/2021) Received from [employer] Physical Activity Physical Activity: 0 Stress: Not on File (03/03/2021) Received from [employer] Stress Stress: 0 Received from [employer] Social Connections Housing Stability: Not on File (03/03/2021) Received from [employer] Housing Stability Housin Review of Systems: Skin: not assessed Eyes: not assessed ENT: not assessed Respiratory: Positive for cough;sleep apnea Cardiovascular: edema;Positive for Gastroenterology: not assessed Genitourinary: not assessed Musculoskeletal: not assessed Neurologic: not assessed Psychiatric: not assessed Heme/Lymph/Imm: not assessed Endocrine: not assessed Physical Exam: Vitals: BP 118/88 (BP Location: Right arm, Patient Position: Sitting, Cuff Size: Adult Regular) Pulse 90 Ht 1.676 m (5' 6) Wt 69.9 kg (154 lb) SpO2 97% BMI 24.86 kg/m?? Constitutional: cooperative, alert and oriented, well developed, well nourished, in no acute distress Skin: warm and dry to the touch Head: normocephalic Eyes: pupils equal and round Lymph: ENT: no pallor or cyanosis Neck: no carotid bruit Respiratory: clear to auscultation;normal symmetry Cardiac: regular rhythm;no murmurs, gallops or rubs detected pulses full and equal GI: abdomen soft;no bruits Extremities and Muscular Skeletal: no deformities, clubbing, cyanosis, erythema observed;no edema varicose Neurological: Psych: Recent Lab Results: LIPID RESULTS: Lab Results Component Value Date CHOL 238 07/17/2016 HDL 45 07/17/2016 LDL 159 07/17/2016 TRIG 169 07/17/2016 LIVER ENZYME RESULTS: Lab Results Component Value Date AST 33 07/17/2016 ALT 31 07/17/2016 CBC RESULTS: Lab Results Component Value Date WBC 6.3 07/17/2016 RBC 4.71 07/17/2016 HGB 13.7 09/19/2016 HCT 42.6 07/17/2016 MCV 90 07/17/2016 MCH 31 07/17/2016 PLT 199 07/17/2016 BMP RESULTS: Lab Results Component Value Date NA 145 07/17/2016 POTASSIUM 4.8 07/17/2016 CHLORIDE 105 07/17/2016 GLC 94 07/17/2016 BUN 11 07/17/2016 CR 0.8 07/17/2016 GFRESTIMATED 71 11/07/2016 GFRESTBLACK 86 11/07/2016 DAVIE 9.7 07/17/2016 A1C RESULTS: No results found for: A1C INR RESULTS: No results found for: INR CC Referred MD Tre No address on file documented in this encounter Plan of Treatment Upcoming Encounters Date Type Department Care Team (Late st Contact Info) Description 06/17/2024 9:45 AM CDT Appointment [facility] [address] [facility] [place] [address] Emilie Carlson DO [address] [place] [address] Scheduled Orders Name Type Priority Associated Diagnoses Order Schedule Echocardiogram Complete Echocardiography Routine Localized edema Migraine without aura and without status migrainosus, not intractable 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 Expected: 05/06/2024 (Approximate), Expires: 04/29/2025 documented as of this encounter Visit Diagnoses Diagnosis Localized edema- Primary Edema Migraine without aura and without status migrainosus, not intractable Migraine without aura, without mention of intractable migraine without mention of status migrainosus 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
--- OUTSIDE RECORDS SUMMARY | 2024-06-07 09:34 | XMS_ITS | Clinical Summary ---
Author Organization [facility] [place], [place] [address] Care Team Providers Care Bander Operator Name Role Phone Parul Freeman DO Primary Care Provide r Allergies Active Allergy [...] Encounters Date Type Department Care Team Description 03/24/2024 2:00 PM CDT Office Visit [facility] [address] [place] [address] Alan Medeiros MD Musculoskeletal Problem (Follow up right knee pain, wanting to repeat Synvisc injection) 03/24/2024 Travel from Last 3 Months Social History Tobacco [...] Sign Reading Time Taken Comments Blood Pressure 143/85 03/24/2024 1:58 PM CDT Pulse 77 03/24/2024 1:58 PM CDT Temperature 36.8 ??C (98.2 ??F) 03/24/2024 1:58 PM CD T Respiratory Rate - - Oxygen Saturation 97% 03/24/2024 1:58 PM CDT Inhaled Oxygen Concentration - - Weight 70.7 kg (155 lb 12.8 oz) 03/28/2021 3:08 PM CDT Height - - Body Mass Index - - Plan of Treatment Upcoming Encounters Date Type Department Care Team (Late st Contact Info) Description 10/11/2024 9:00 AM LICENSED AIRCRAFT MAINTENANCE ENGINEER Office Visit [facility] [address] [place] [address] Alan Medeiros MD [address] [place] [address] Health Maintenance Due Date Last Done Comments [...] 1 - PCV) 2010 COVID-19 vaccine series ( season) 2024 10/30/2023, 10/17/2022, 04/16/2022, Additional history exists Influenza for age 65+ 07/11/2024 Care Teams Bander Operator Relationship Specialty Start Date End Date Parul Freeman DO [address] [place], [place] [id number] PCP - General Family Practice 08/05/23
--- OUTSIDE RECORDS SUMMARY | 2024-06-07 09:34 | XMS_ITS | Encounter Summary ---
Author Organization [place] Address [address] [place] [address] Care Team Providers Care Virtual Classroom Manager Name Role Phone Emilie Carlson DO Unavailable [phone] Esther Lee PA-C Primary Care Provider [phone] Emilie Carlson DO Unavailable + [phone] Encounter Details Date Type Department Care Team (Late st Contact Info) Description 05/04/2024 External Order Results [facility] [address] [place] [address] Outside, Provider Social History Tobacco Use Types Packs/Day Years [...] as of this encounter Plan of Treatment Upcoming Encounters Date Type Department Care Team (Late Contact Info) Description 06/17/2024 9:45 AM CDT Appointment [facility] [address] [facility] [address] [place] [address] Emilie Carlson, [address] [place] [id number] documented as of this encounter Procedures Procedure Name Priority Date/Time Associated Diagnosis Comments CBC WITH PLATELETS & DIFFERENTIAL Routine 02/27/2024 1:12 PM CDT BASIC METABOLIC PANEL Routine 02/27/2024 1:12 PM CDT documented in this encounter Results * (ABNORMAL) CBC with Platelets & Differential (02/27/2024 1:12 PM CDT) WBC Count (External) 5.40 4.50 - 11.00 K/uL NON-INTERFACE D (ONBASE SCANS) RBC Count (External) 4.60 4.00 - 5.20 m/uL NON-INTERFACE D (ONBASE SCANS) Hemoglobin (External) 13.4 12.0 - 16.0 gm/dL NON-INTERFACE D (ONBASE SCANS) Hematocrit (External) 39.9 33.0 - 51.0 % NON-INTERFACE D (ONBASE SCANS) MCV (External) 87 80 - 100 fL NON-INTERFACE D (ONBASE SCANS) MCH (External) 29 26 - 34 Pg NON- INTERFACE D (ONBASE SCANS) MCHC (External) 34 32 - 36 g/dL NON-INTERFACE D (ONBASE SCANS) RDW (External) 12.3 11.5 - 15.5 % NON-INTERFACE D (ONBASE SCANS) Platelet Count (External) 190 140 - 440 K/uL NON-INTERFACE D (ONBASE SCANS) % Neutrophils (External) 75.4(H) 42.0 - 72.0 % NON-INTERFACE D (ONBASE SCANS) % Lymphocytes (External) 17.0(L) 20 - 44 % NON-INTERFACE D (ONBASE SCANS) % Monocytes (External) 5.9 0.0 - 11.0 % NON-INTERFACE D (ONBASE SCANS) % Eosinophils (External) 0.7 0.0 - 7.0 % NON-INTERFACE D (ONBASE SCANS) % Basophils (External) 0.6 0.0 - 3.0 % NON-INTERFACE D (ONBASE SCANS) Absolute Neutrophils (External) 4.10 1.7 - 7.0 K/uL NON-INTERFACE D (ONBASE SCANS) Absolute Lymphocytes (External) 0.90 0.90 - 2.90 K/uL NON-INTERFACE D (ONBASE SCANS) Absolute Monocytes (External) 0.30 0.00 - 0.90 K/UL NON-INTERFACE D (ONBASE SCANS) Absolute Eosinophils (External) 0.04 0.00 - 0.50 K/uL NON-INTERFACE D (ONBASE SCANS) Absolute Basophils (External) 0.03 0.00 - 0.30 K/uL NON-INTERFACE D (ONBASE SCANS) Absolute Immature Granulocytes (External) 0.02 0.00 - 0.30 K/uL NON-INTERFACE D (ONBASE SCANS) % Immature Granulocytes (External) 0.4 % NON-INTERFACE D (ONBASE SCANS) Blood BLOOD SPECIMEN / Unknown 02/27/2024 1:12 PM CDT Narrative CHIP PFT - 05/04/2024 2:18 PM CDT Verified by Louann Rajan on 05/04/2024. Provider Outside LAB - BLOOD ORDERABL ES CHIP PF NON-INTERFACED (ONBASE SCANS) * (ABNORMAL) Basic metabolic panel (02/27/2024 1:12 PM CDT) Sodium (External) 137 135 - 149 mmol/L NON-INTERFACED (ONBASE SCANS) Potassium (External) 3.8 3.6 - 5.1 mmol/L NON-INTERFACED (ONBASE SCANS) Chloride (External) 108 96 - 114 mmol/L NON-INTERFACED (ONBASE SCANS) CO2 (External) 25 20 - 32 mmol/L NON-INTERFACED (ONBASE SCANS) Anion Gap (External) 4(L) 7 - 15 mEq/L NON-INTERFACED (ONBASE SCANS) Urea Nitrogen (External) 16 7 - 30 mg/dL NON-INTERFACED (ONBASE SCANS) Creatinine (External) 0.7 0.5 - 1.5 mg/dL NON-INTERFACED (ONBASE SCANS) GFR Estimated (External) 88 ml/min/1.7 3m2 NON-INTERFACED (ONBASE SCANS) Glucose (External) 110 60 - 115 mg/dL NON-INTERFACED (ONBASE SCANS) Calcium (External) 8.8 8.4 - 10.6 mg/dL NON-INTERFACED (ONBASE SCANS) Blood BLOOD SPECIMEN / Unknown 02/27/2024 1:12 PM CDT Narrative CHIP PFT - 05/04/2024 2:18 PM CDT Verified by Louann Rajan on 05/04/2024. Provider Outside LAB - BLOOD ORDERABL ES CHIP PFT NON-INTERFACED (ONBASE SCANS) documented in this encounter Visit Diagnoses Not on filedocumented in this encounter Care Teams Virtual Classroom Manager Relationship Specialty Start Date End Date Esther Lee PA-C [address] [place] [address] PCP - General 04/29/24 Emilie Carlson DO [address] [place] [id number] Physician Cardiovascular Disease 03/25/24 Emilie Carlson DO [address] [place] [address] Assigned Heart and Vascular Provider 05/02/24 documented as of this encounter
--- OUTSIDE RECORDS SUMMARY | 2024-06-07 09:34 | XMS_ITS | Encounter Summary ---
Author Organization [place] Address [address] [place] [address]. [place] [address] Care Team Providers Care Long Chain Quiller Tender Name Role Phone Flavia Guardado MD Primary Care Provider + Emilie Carlson DO Unavailable [phone] Encounter Details Date Type Department Care Team (Latest Contact Info) Description 04/27/2024 Travel Social History Tobacco Use Types Packs/Day [...] Info) Description 06/17/2024 9:45 AM CDT Appointment [facility] [address] [facility] [address] [place] [address] Emilie Carlson DO [address] [facility] [address] [place], [place] [address] documented as of this encounter Visit Diagnoses Not on filedocumented in this encounter Care Teams Long Chain Quiller Tender Relationship Specialty Start Date End Date Flavia Guardado MD [facility] [address] [address] PCP - General Family Practice 08/05/16 04/28/24 Emilie Carlson DO [address] [place] [address] Physician Cardiovascular Disease 03/25/24 documented as of this encounter
--- OUTSIDE RECORDS SUMMARY | 2024-06-07 09:34 | XMS_ITS | Referral Summary ---
Author Organization [facility] Address [address] [place] [address] Care Team Providers Care Change Agent Name Role Phone Emilie Carlson DO Unavailable [phone] Esther Lee PA-C Primary Care Provider [phone] Emilie Carlson DO Unavailable [phone] Encounters Date Type Department Care Team Description 05/04/2024 External Order Results [facility] [address] [place] [address] Outside, Provider 04/29/2024 Travel 04/29/2024 9:45 AM CDT Office Visit [facility] [place] [address] [place] [address] [address] [place] [address] Emilie Carlson DO Localized edema (Primary Dx); Migraine without aura and without status migrainosus, not intractable; Atherosclerosis of [place] coronary artery of [place] heart without angina pectoris 04/27/2024 Travel from Last 3 Months Allergies Active Allergy Reactions Criticality Noted Date [...] without status migrainosus, not intractable,Atherosc lerosis of [place] coronary artery of [place] heart without angina pectoris Take 1 tablet (4 mg) by mouth every 8 hours as needed for nausea 10 tablet 4 04/29/2024 Active Active Problems Patient Care Coordination No te Formatting of this note migh t be different from the original. [email or web address] No additional problems on file Resolved Problems [...] Info) Description 06/17/2024 9:45 AM CDT Appointment [facility] [address] [facility] [address] [place] [address] Emilie Carlson DO [address] [place] [address] Procedures Procedure Name Priority Date/Time Associated Diagnosis [...] Recently Relevant to Health Maintenance Care Teams Change Agent Relationship Specialty Start Date End Date Esther Lee PA-C [address] [address] PCP - General 04/29/24 Emilie Carlson DO [address] [place] [address] Physician Cardiovascular Disease 03/25/24 Emilie Carlson DO [address] [place] [address] Assigned Heart and Vascular Provider 05/02/24
--- OUTSIDE RECORDS SUMMARY | 2024-06-07 09:34 | XMS_ITS | Encounter Summary ---
Author Organization [facility] Address [address] [place] [address]. [place] [address] Care Team Providers Care Guest Relations Representative Name Role Phone Flavia Guardado MD Primary Care Provider + Haley Gayle DO Unavailable [phone] [facility] Unavailable Emilie Carlson DO Unavailable + [phone] Esther Lee PA-C Primary Care Provider [phone] Emilie Carlson DO Unavailable + [phone] Encounter Details Date Type Department Care Team ( Contact Info) Description 02/19/2021 [facility] [address] [place] [address] [address] [place] [address] Haley Ríos MD [address] [place] [address] Social History Tobacco Use Types Packs/Day [...] Info) Description 06/17/2024 9:45 AM CDT Appointment [facility] [address] [facility] [address] [place] [address] Emilie Carlson DO [address] [place] [address] documented as of this encounter Visit Diagnoses Not on filedocumented in this encounter Care Teams Guest Relations Representative Relationship Specialty Start Date End Date Flavia Guardado MD [facility] [address] [place] [address] PCP - General Family Practice 08/05/16 04/28/24 Esther Lee PA-C [facility] [address] [place] [address] PCP - General 04/29/24 Haley Gayle DO [address] [place] [address] Assigned PCP 02/01/21 10/18/22 [facility] [place] [facility] [address] [place] [address] Assigned PCP 12/04/23 03/31/24 Emilie Carlson DO [address] [place] [address] Physician Cardiovascular Disease 03/25/24 Emilie Carlson DO [address] [place] [address] Assigned Heart and Vascular Provider 05/02/24 documented as of this encounter
--- OUTSIDE RECORDS SUMMARY | 2024-06-07 09:34 | XMS_ITS | Encounter Summary ---
Author Organization [place] Address [address] [facility] [place] [address] Care Team Providers Care Warehouse Production Worker Name Role Phone Emilie Carlson DO Unavailable [phone] Esther Lee PA-C Primary Care Provider [phone] Encounter Details Date Type Department Care Team (Latest Contact Info) Description 04/29/2024 Travel Social History Tobacco Use Types Packs/Day [...] CDT Appointment [facility] [address] [facility] [address] [place] [address] Emilie Carlson DO [address] [facility] [address] [place], [place] [address] documented as of this encounter Visit Diagnoses Not on filedocumented in this encounter Care Teams Warehouse Production Worker Relationship Specialty Start Date End Date Esther Lee PA-C [facility] [address] [facility] [place] [address] PCP - General 04/29/24 Emilie Carlson DO [address] [place] [address] Physician Cardiovascular Disease 03/25/24 documented as of this encounter
--- OUTSIDE RECORDS SUMMARY | 2024-06-07 09:34 | XMS_ITS | Clinical Summary ---
Author Organization [facility] Address [address] [place] [address] Care Team Providers Care Mathematics Instructor Name Role Phone Unavailable Primary Care Provider [...]
== END 2024-06-07 09:30 | disposition home or self-care (01) ==
LOC: FRMREF 09:30
PROVIDERS: PCP Physician Assistant Medical; Visit Provider Physician Assistant Medical
DX: R79.89 Other specified abnormal findings of blood chemistry (principal); E78.5 Hyperlipidemia, unspecified; R41.3 Other amnesia
CPT/HCPCS: 80061; 82306; 82607; 84443

== ENCOUNTER 2024-08-25 07:00 | Outpatient (CLI) | payer MEDICARE, SELFPAY ==
--- OUTSIDE RECORDS SUMMARY | 2024-08-25 15:02 | XMS_ITS | Encounter Summary ---
Author Organization [place] Address [address] [place] [address] Care Team Providers Care Escapement Maker Name Role Phone Paulyulylashell Emilie Palma DO Unavailable [phone] Esther Lee PA-C Primary Care Provider [phone] Emilie Carlson DO Unavailable [phone] Encounter Details Date Type Department Care Team (Latest Contact Info) Description 06/17/2024 Travel Social History Tobacco Use Types Packs/Day [...] on filedocumented in this encounter Care Teams Escapement Maker Relationship Specialty Start Date End Date Esther Lee PA-C [address] [address] PCP - General 04/29/24 Emilie Carlson DO [address] [place] [address] Physician Cardiovascular Disease 03/25/24 Emilie Carlson DO [address] [place] [address] Assigned Heart and Vascular Provider 05/02/24 documented as of this encounter
--- OUTSIDE RECORDS SUMMARY | 2024-08-25 15:02 | XMS_ITS | Encounter Summary ---
Author Organization [facility] Address [address] [place] [address]. [place] [address] Care Team Providers Care Flanging Roll Operator Name Role Phone Flavia Guardado MD Primary Care Provider + Haley Gayle DO Unavailable [phone] [facility] Unavailable Emilie Carlson DO Unavailable + [phone] Esther Lee PA-C Primary Care Provider [phone] Emilie Carlson DO Unavailable + [phone] Encounter Details Date Type Department Care Team (Late st Contact Info) Description 02/19/2021 [facility] [address] [place] [address] [address] [place] [address] Haley Ríos MD [address] [place] [address] Social History Tobacco Use Types [...] on filedocumented in this encounter Care Teams Flanging Roll Operator Relationship Specialty Start Date End Date Flavia Guardado MD [facility] [address] [place] [address] PCP - General Family Practice 08/05/16 04/28/24 Esther Lee PA-C [facility] [address] [place] [address] PCP - General 04/29/24 Haley Gayle DO [address] [place] [address] Assigned PCP 02/01/21 10/18/22 [facility] [address] [place] [address] Assigned PCP 12/04/23 03/31/24 Emilie Carlson DO [address] [place] [address] Physician Cardiovascular Disease 03/25/24 Emilie Carlson DO [address] [place] [address] Assigned Heart and Vascular Provider 05/02/24 documented as of this encounter
--- OUTSIDE RECORDS SUMMARY | 2024-08-25 15:02 | XMS_ITS | Clinical Summary ---
Author Organization [facility] Address [address] [place] [address] Care Team Providers Care Director Of Strategic Initiatives Name Role Phone Daxa Carlson DO Unavailable [phone] Esther Lee PA-C Primary Care Provider [phone] Carissalashell Daxa Minerva DO Unavailable [phone] Allergies Active Allergy Reactions Criticality Noted Date [...] without status migrainosus, not intractable,Atherosc lerosis of [place] coronary artery of [place] heart without angina pectoris Take 1 tablet (4 mg) by mouth every 8 hours as needed for nausea 10 tablet 4 04/29/2024 Active Active Problems Patient Care Coordination No te Formatting of this note migh t be different from the original. [email or web address] No additional problems on file Resolved Problems Problem Noted Date Diagnosed Date Resolved Date Thoracic or lumbosacral neur itis or radiculitis, unspecified 05/08/2015 07/07/2015 Encounters Date Type Department Care Team Description 06/17/2024 9:24 AM CDT - 06/17/2024 11:59 PM CDT Hospital Encounter [facility] [address] [place] [address] [address] [place] [address] Daxa Carlson, Localized edema; Migraine without aura and without status migrainosus, not intractable; Atherosclerosis of [place] coronary artery of [place] heart without angina pectoris Discharge Disposition: Home or Self Care 06/17/2024 Travel from Last 3 Months Immunizations Name Administration Dates Next Due COVID-19 MONOVALENT 12+ (Pfizer) 01/13/2021,12/11 Influenza (High Dose) Trivalent,PF (Fluzone) 11/2017 Influenza Vaccine >6 months,quad, PF 08/29/2020, 10/19/2019 [...] 04/29/2024 9:46 AM CDT Plan of Treatment Health Maintenance Due Date Last Done Comments ADVANCE CARE PLANNING 1945 ANNUAL REVIEW OF HM ORDERS 1945 DEXA 1945 HEPATITIS C SCREENING 1963 ZOSTER IMMUNIZATION (2 of 3) 05/05/2008 03/10/2008 MEDICARE ANNUAL WELLNESS VISIT 2010 GLUCOSE 07/17/2019 07/17/2016 RSV VACCINE (1 - 1-dose 75+ series) 2020 LIPID 07/17/2021 07/17/2016 FALL RISK ASSESSMENT 03/01/2022 03/01/2021 DTAP/TDAP/TD IMMUNIZATION (3 - Td or Tdap) 03/29/2024 03/29/2014, 05/20/2006, 03/24/1998 COVID-19 Vaccine ( season) 2024 10/30/2023, 10/17/2022, 04/16/2022, Additional history exists INFLUENZA VACCINE (#1) 2024 , 08/29/2020, 10/19/2019, Additional history exists Pneumococcal Vaccine: [...] Procedure Name Priority Date/Time Associated Diagnosis Comments ECHO COMPLETE Routine 06/17/2024 10:01 AM CDT Localized edema Migraine without aura and without status migrainosus, not intractable Atherosclerosis of [place] coronary artery of [place] heart without angina pectoris BASIC METABOLIC PANEL Routine 07/17/2016 LIPID PROFILE Routine 07/17/2016 from Last 3 Months or Most Recently Relevant to Health Maintenance Results * ECHO COMPLETE (06/17/2024 10:01 AM CDT) LVEF 55-60% CARDIOLOGY RESULTS Anatomical Region Laterality Modality Echocardiography 06/17/2024 9:42 AM CDT Narrative 06/17/2024 12:53 PM CDT [id number]^CODY^DAXA^[facility] Echocardiography Laboratory [address] [place] [address] Name: ANABEL MCCAULEY : 1945 Study Date: 06/17/2024 09:42 AM Age: 79 yrs Gender: Female Patient Location: [facility] Reason For Study: Localized edema, Migraine without aura Ordering Physician: DAXA CARLSON Referring Physician: ADXA CARLSON Performed By: [facility] Umu Redman BSA: 1.8 m2 Height: 66 in Weight: 154 lb HR: 71 BP: 143/80 mmHg Procedure Complete Echo Adult. Interpretation Summary The visual ejection fraction is 55-60%. Left ventricular systolic function is normal. Left Ventricle The left ventricle is normal in size. There is normal left ventricular wall thickness. Diastolic Doppler findings (E/E' ratio and/or other parameters) suggest left ventricular filling pressures are indeterminate. The visual ejection fraction is 55-60%. Left ventricular systolic function is normal. Grade I or early diastolic dysfunction. Right Ventricle The right ventricle is normal in size and function. Atria Normal left atrial size. Right atrial size is normal. There is no color Doppler evidence of an atrial shunt. Mitral Valve There is trace mitral regurgitation. Tricuspid Valve There is trace tricuspid regurgitation. Right ventricular systolic pressure could not be approximated due to inadequate tricuspid regurgitation. Aortic Valve The aortic valve is trileaflet. No aortic regurgitation is present. No hemodynamically significant valvular aortic stenosis. Pulmonic Valve There is no pulmonic valvular regurgitation. Normal pulmonic valve velocity. Vessels The aortic root is normal size. Normal size ascending aorta. IVC diameter <2.1 cm collapsing >50% with sniff suggests a normal RA pressure of 3 mmHg. Pericardium There is no pericardial effusion. Rhythm Sinus rhythm was noted. MMode/2D Measurements & Calculations IVSd: 0.91 cm LVIDd: 3.8 cm LVIDs: 2.6 cm LVPWd: 0.78 cm FS: 32.1 % LV mass(C)d: 92.0 grams LV mass(C)dI: 51.4 grams/m2 Ao root diam: 3.3 cm asc Aorta Diam: 3.2 cm LVOT diam: 2.0 cm LVOT area: 3.1 cm2 Ao root diam index Ht(cm/m): 1.9 Ao root diam index BSA (cm/m2): 1.8 Asc Ao diam index BSA (cm/m2): 1.8 Asc Ao diam index Ht(cm/m): 1.9 LA Volume (BP): 25.1 ml LA Volume Index (BP): 14.0 ml/m2 RV Base: 3.4 cm RWT: 0.42 TAPSE: 1.9 cm Doppler Measurements & Calculations MV E max drake: 51.4 cm/sec MV A max drake: 100.0 cm/sec MV E/A: 0.51 MV max P.4 mmHg MV mean P.6 mmHg MV V2 VTI: 24.9 cm MV dec slope: 180.3 cm/sec2 MV dec time: 0.29 sec PA V2 max: 93.4 cm/sec PA max P.5 mmHg PA acc time: 0.11 sec E/E' av.3 Lateral E/e': 7.3 Medial E/e': 11.2 RV S Drake: 11.4 cm/sec Report approved by: Velia Bran 06/17/2024 12:53 PM Procedure Note Zac Livingston MD - 06/17/2024 [id number]^CODY^DAXA^[facility] Echocardiography Laboratory [address] [place] [address] Name: ANABEL MCCAULEY : 1945 Study Date: 06/17/2024 09:42 AM Age: 79 yrs Gender: Female Patient Location: [facility] Reason For Study: Localized edema, Migraine without aura Ordering Physician: DAXA CARLSON Referring Physician: DAXA CARLSON Performed By: [facility] Umu Redman BSA: 1.8 m2 Height: 66 in Weight: 154 lb HR: 71 BP: 143/80 mmHg Procedure Complete Echo Adult. Interpretation Summary The visual ejection fraction is 55-60%. Left ventricular systolic function is normal. Left Ventricle The left ventricle is normal in size. There is normal left ventricularwall thickness. Diastolic Doppler findings (E/E' ratio and/or otherparameters) suggest left ventricular filling pressures are indeterminate. The visual ejection fraction is 55-60%. Left ventricular systolic function isnormal. Grade I or early diastolic dysfunction. Right Ventricle The right ventricle is normal in size and function. Atria Normal left atrial size. Right atrial size is normal. There is no color Doppler evidence of an atrial shunt. Mitral Valve There is trace mitral regurgitation. Tricuspid Valve There is trace tricuspid regurgitation. Right ventricular systolicpressure could not be approximated due to inadequate tricuspid regurgitation. Aortic Valve The aortic valve is trileaflet. No aortic regurgitation is present. No hemodynamically significant valvular aortic stenosis. Pulmonic Valve There is no pulmonic valvular regurgitation. Normal pulmonic valvevelocity. Vessels The aortic root is normal size. Normal size ascending aorta. IVC diameter<2.1 cm collapsing >50% with sniff suggests a normal RA pressure of 3 mmHg. Pericardium There is no pericardial effusion. Rhythm Sinus rhythm was noted. MMode/2D Measurements & Calculations IVSd: 0.91 cm LVIDd: 3.8 cm LVIDs: 2.6 cm LVPWd: 0.78 cm FS: 32.1 % LV mass(C)d: 92.0 grams LV mass(C)dI: 51.4 grams/m2 Ao root diam: 3.3 cm asc Aorta Diam: 3.2 cm LVOT diam: 2.0 cm LVOT area: 3.1 cm2 Ao root diam index Ht(cm/m): 1.9 Ao root diam index BSA (cm/m2): 1.8 Asc Ao diam index BSA (cm/m2): 1.8 Asc Ao diam index Ht(cm/m): 1.9 LA Volume (BP): 25.1 ml LA Volume Index (BP): 14.0 ml/m2 RV Base: 3.4 cm RWT: 0.42 TAPSE: 1.9 cm Doppler Measurements & Calculations MV E max drake: 51.4 cm/sec MV A max drake: 100.0 cm/sec MV E/A: 0.51 MV max P.4 mmHg MV mean P.6 mmHg MV V2 VTI: 24.9 cm MV dec slope: 180.3 cm/sec2 MV dec time: 0.29 sec PA V2 max: 93.4 cm/sec PA max P.5 mmHg PA acc time: 0.11 sec E/E' av.3 Lateral E/e': 7.3 Medial E/e': 11.2 RV S Drake: 11.4 cm/sec Report approved by: Velia Bran 06/17/2024 12:53 PM Daxakimberlee Milleryulylashell DO CV ECHO ORD ERABLES * Lipid Profile (07/17/2016) Cholesterol 238 mg/dL [...] Recently Relevant to Health Maintenance Care Teams Director Of Strategic Initiatives Relationship Specialty Start Date End Date Esther Lee PA-C [facility] [address] [facility] [place] [address] PCP - General 04/29/24 Daxa Carlson DO [address] [place] [address] Physician Cardiovascular Disease 03/25/24 Daxa Carlson DO [address] [place] [address] Assigned Heart and Vascular Provider 05/02/24
--- OUTSIDE RECORDS SUMMARY | 2024-08-25 15:02 | XMS_ITS | Encounter Summary ---
Author Organization [facility] Address [address] [place] [address] Care Team Providers Care Food Service Director Name Role Phone Daxa Carlson DO Unavailable [phone] Esther Lee PA-C Primary Care Provider [phone] Daxa Carlson DO Unavailable [phone] Reason for Referral * CV Testing (Routine) - Closed Specialty Diagnoses / Procedures Referred By Daxa cotto Referred To Contact Cardiology Diagnoses Localized edema Migraine without aura and without status migrainosus, not intractable Atherosclerosis of [place] coronary artery [place] heart without angina pectoris Procedures Echocardiogram Complete ZZHC TTE W/DOPPLER, COMPLETE ZZHC ECHO COMPLETE W DOPPLER W CONTRAST ZZHC ECHO COMPLETE W DOPPLER W/O CONTRAST ZZHC IV PUSH SINGLE, INITIAL SUBSTANCE ZZHC US GUIDE FOR PERICARDIOCENTESIS ZZHC ECHO MYOCARD BX ZZC INJECTION, PERFLUTREN LIPID MICROSPHERES, PER ML ZZHC STATISTIC IV PUSH SINGLE INITIAL SUBSTANCE CA ECHO MYOCARD BX CA INJECTION, PERFLUTREN LIPID MICROSPHERES, PER ML CA TTE W/DOPPLER, COMPLETE CA IV PUSH SINGLE, INITIAL SUBSTANCE CA TTE W/DOPPLER, COMPLETE CA TTE W/DOPPLER, COMPLETE HC US GUIDE FOR PERICARDIOCENTESIS HC ECHO MYOCARD BX HC IV PUSH SINGLE, INITIAL SUBSTANCE HC STATISTIC IV PUSH SINGLE INITIAL SUBSTANCE HC ECHO COMPLETE W DOPPLER W CONTRAST HC ECHO COMPLETE W DOPPLER W/O CONTRAST Daxa Carlson, DO [address] [place] [address] [facility] [address] [place] [address] Referral ID Status Reason Start Date Expiration Date Visits Re quested Visits Authorized [id number] Closed 04/29/2024 04/29/2025 1 1 Reason for Visit * CV Testing (Routine) - Closed Specialty Diagnoses / Procedures Referred By Contac t Referred To Contact Cardiology Diagnoses Localized edema Migraine without aura and without status migrainosus, not intractable Atherosclerosis of [place] coronary artery [place] heart without angina pectoris Procedures Echocardiogram Complete ZZHC TTE W/DOPPLER, COMPLETE ZZHC ECHO COMPLETE W DOPPLER W CONTRAST ZZHC ECHO COMPLETE W DOPPLER W/O CONTRAST ZZHC IV PUSH SINGLE, INITIAL SUBSTANCE ZZHC US GUIDE FOR PERICARDIOCENTESIS ZZHC ECHO MYOCARD BX ZZC INJECTION, PERFLUTREN LIPID MICROSPHERES, PER ML ZZHC STATISTIC IV PUSH SINGLE INITIAL SUBSTANCE CA ECHO MYOCARD BX CA INJECTION, PERFLUTREN LIPID MICROSPHERES, PER ML CA TTE W/DOPPLER, COMPLETE CA IV PUSH SINGLE, INITIAL SUBSTANCE CA TTE W/DOPPLER, COMPLETE CA TTE W/DOPPLER, COMPLETE HC US GUIDE FOR PERICARDIOCENTESIS HC ECHO MYOCARD BX HC IV PUSH SINGLE, INITIAL SUBSTANCE HC STATISTIC IV PUSH SINGLE INITIAL SUBSTANCE HC ECHO COMPLETE W DOPPLER W CONTRAST HC ECHO COMPLETE W DOPPLER W/O CONTRAST Daxa Carlson DO [address] [place] [address] [facility] [address] [place] [address] Referral ID Status Reason Start Date Expiration Date Visits Re quested Visits Authorized [id number] Closed 04/29/2024 04/29/2025 1 1 Encounter Details Date Type Department Care Team (Late st Contact Info) Description 06/17/2024 9:24 AM CDT - 06/17/2024 11:59 PM CDT Hospital Encounter [facility] [address] [facility] [address] [place] [address] Daxa Carlson DO [address] [place] [address] Localized edema; Migraine without aura and without status migrainosus, not intractable; Atherosclerosis of [place] coronary artery [place] heart without angina pectoris Discharge Disposition: Home or Self Care Social History Tobacco Use Types Packs/Day Years [...] Refills Start Date End Date albuterol (ALBUTEROL) 108 (90 BASE) MCG/ACT inhalerIndications:SOB (shortness of breath) Inhale 2 puffs into the lungs every 6 hours as needed for shortness of breath / dyspnea or wheezing 1 Inhaler 1 09/12/2016 escitalopram (LEXAPRO) 10 MG tablet Take 10 mg by mouth daily ibuprofen (ADVIL) 200 MG tablet Take 400 mg by mouth as needed for mild pain Multiple vitamin TABS Take by mouth daily ondansetron (ZOFRAN ODT) 4 MG ODT tabIndications:Localize d edema,Migraine without aura and without status migrainosus, not intractable,Atheroscler osis of [place] coronary artery [place] heart without angina pectoris Take 1 tablet (4 mg) by mouth every 8 hours as needed for nausea 10 tablet 4 04/29/2024 documented as of this encounter Plan of Treatment Not on file documented as of this encounter Procedures Procedure Name Priority Date/Time Associated Diagnosis Comments ECHO COMPLETE Routine 06/17/2024 10:01 AM CDT Localized edema Migraine without aura and without status migrainosus, not intractable Atherosclerosis of [place] coronary artery [place] heart without angina pectoris documented in this encounter Results * ECHO COMPLETE (06/17/2024 10:01 AM CDT) [facility] LVEF 55-60% CARDIOLOGY RESULTS Anatomical Region Laterality Modality Echocardiography 06/17/2024 9:42 AM CDT Narrative 06/17/2024 12:53 PM CDT [id number]^CODY^DAXA^MOHIT [facility] Echocardiography Laboratory [address] [place] [address] Name: ANABEL MCCAULEY : 1945 Study Date: 06/17/2024 09:42 AM Age: 79 yrs Gender: Female Patient Location: [facility] Reason For Study: Localized edema, Migraine without aura Ordering Physician: DAXA CARLSON Referring Physician: DAXA CARLSON Performed By: BATSHEVA Redman BSA: 1.8 m2 Height: 66 in [...] Procedure Note Zac Livingston MD - 06/17/2024 [id number]^CODY^DAXA^MOHIT [facility] Echocardiography Laboratory [address] [place] [address] Name: ANABEL MCCAULEY : 1945 Study Date: 06/17/2024 09:42 AM Age: 79 yrs Gender: Female Patient Location: [facility] Reason For Study: Localized edema, Migraine without aura Ordering Physician: DAXA CARLSON Referring Physician: DAXA CARLSON Performed By: BATSHEVA Redman BSA: 1.8 m2 Height: 66 in [...] approved by: Velia Bran 06/17/2024 12:53 PM Daxa Carlson DO ECHO ORD ERABLES documented in this encounter Visit Diagnoses Diagnosis Localized edema Edema Migraine without aura and without status migrainosus, not intractable Migraine without aura, without mention of intractable migraine without mention of status migrainosus Atherosclerosis of [place] coronary artery [place] heart without angina pectoris documented in this encounter Care Teams Food Service Director Relationship Specialty Start Date End Date Esther Lee PA-C [place] [id number] [facility] [address] [place], [place] [address] PCP - General 04/29/24 Daxa Carlson DO [address] [place] [address] Physician Cardiovascular Disease 03/25/24 Daxa Carlson DO [address] [place] [address] Assigned Heart and Vascular Provider 05/02/24 documented as of this encounter
--- OUTSIDE RECORDS SUMMARY | 2024-08-25 15:02 | XMS_ITS | Clinical Summary ---
Author Organization [facility] Address [address] [place] [address] Care Team Providers Care International Coordinator Name Role Phone Unavailable Primary Care Provider [...]
--- OUTSIDE RECORDS SUMMARY | 2024-08-25 15:02 | XMS_ITS | Encounter Summary ---
Author Organization [facility] Address [address] [place] [address]. [place] [address] Care Team Providers Care Paper Inserter Name Role Phone Aldo Emilie Minerva DO Unavailable [phone] Esther Lee PA-C Primary Care Provider [phone] Emilie Carlson DO Unavailable [phone] Encounter Details Date Type Department Care Team (Late st Contact Info) Description 05/04/2024 External Order Results [facility] [address] [place] [address] Outside, Provider Social History Tobacco Use Types [...] SPECIMEN / Unknown 02/27/2024 1:12 PM CDT Chelly SAUNDERS PFT - 05/04/2024 2:18 PM CDT Verified by Louann Rajan on 05/04/2024. Provider Outside LAB - BLOOD ORDERABL ES CHIP SHAYY NON-INTERFACED (ONBASE SCANS) * (ABNORMAL) Basic metabolic [...] on filedocumented in this encounter Care Teams Paper Inserter Relationship Specialty Start Date End Date Esther Lee PA-C [address] [place] [address] PCP - General 04/29/24 Emilie Carlson DO [address] [place] [address] Physician Cardiovascular Disease 03/25/24 Emilie Carlson DO [address] [place] [id number] Assigned Heart and Vascular Provider 05/02/24 documented as of this encounter
--- OUTSIDE RECORDS SUMMARY | 2024-08-25 15:02 | XMS_ITS | Referral Summary ---
Author Organization [facility] Address [address] [place] [address] Care Team Providers Care Change Control Coordinator Name Role Phone Daxa Carlson DO Unavailable [phone] Esther Lee PA-C Primary Care Provider [phone] Daxa Carlson DO Unavailable [phone] Encounters Date Type Department Care Team Description 06/17/2024 Travel 06/17/2024 9:24 AM CDT - 06/17/2024 11:59 PM CDT Hospital Encounter [facility] Specialty Care [address] [id number] Daxa Carlson DO Localized edema; Migraine without aura and without status migrainosus, not intractable; Atherosclerosis of [place] coronary artery of [place] heart without angina pectoris Discharge Disposition: Home or Self Care from Last 3 Months Allergies Active Allergy [...] without status migrainosus, not intractable,Atherosc lerosis of [place] coronary artery of [place] heart without angina pectoris Take 1 tablet (4 mg) by mouth every 8 hours as needed for nausea 10 tablet 4 04/29/2024 Active Active Problems Patient Care Coordination No te Formatting of this note migh t be different from the original. [email or web address] No additional problems on file Resolved Problems [...] 04/29/2024 9:46 AM CDT Plan of Treatment Not on file Procedures Procedure Name Priority Date/Time Associated Diagnosis Comments ECHO COMPLETE Routine 06/17/2024 10:01 AM CDT Localized edema Migraine without aura and without status migrainosus, not intractable Atherosclerosis of [place] coronary artery of [place] heart without angina pectoris BASIC METABOLIC PANEL Routine 07/17/2016 LIPID PROFILE Routine 07/17/2016 from Last 3 Months or Most Recently Relevant to Health Maintenance Results * ECHO COMPLETE (06/17/2024 10:01 AM CDT) LVEF 55-60% CARDIOLOGY RESULTS Anatomical Region Laterality Modality Echocardiography 06/17/2024 9:42 AM CDT Narrative 06/17/2024 12:53 PM CDT [id number]^CODY^DAXA^MOHIT [facility] Echocardiography Laboratory [address] [place] [address] Name: ANABEL MCCAULEY : 1945 Study Date: 06/17/2024 09:42 AM Age: 79 yrs Gender: Female Patient Location: [facility] Reason For Study: Localized edema, Migraine without [...] Procedure Note Zac Livingston MD - 06/17/2024 [id number]^CODY^DAXA^MOHIT [facility] Echocardiography Laboratory [address] [place] [address] Name: ANABEL MCCAULEY : 1945 Study Date: 06/17/2024 09:42 AM Age: 79 yrs Gender: Female Patient Location: [facility] Reason For Study: Localized edema, Migraine without [...] Bran 06/17/2024 12:53 PM Daxa Carlson DO CV ECHO ORD ERABLES * Lipid [...] - BLOOD ORDERABL ES Performing Organization Address City/[facility] Co de Phone Number EXTERNAL LAB External [...] Relevant to Health Maintenance Care Teams Change Control Coordinator Relationship Specialty Start Date End Date Esther Lee PA-C [facility] [address] [place], [place] [id number] PCP - General 04/29/24 Daxa Carlson DO [address] [place] [id number] Physician Cardiovascular Disease 03/25/24 Daxa Carlson DO [address] [place] [id number] Assigned Heart and Vascular Provider 05/02/24
== END 2024-08-25 07:01 | disposition home or self-care (01) ==
LOC: NFLDREF 14:59
PROVIDERS: PCP Physician Assistant Medical; Referring Provider Physician Assistant Medical
DX: R32 Unspecified urinary incontinence (principal)
CPT/HCPCS: 87086

== ENCOUNTER 2025-03-21 06:57 | Day surgery (SDC) | payer MEDICARE, SELFPAY ==
[2025-03-21] VITALS (26 sets, daily range): BP systolic 86–180; BP diastolic 48–107; PULSE 48–87; RESP 14–16; TEMP 35.8–36.6; O2SAT 92–98; BMI 34.6
[2025-03-21] MEDS: LACTATED RINGERS 1000 ML 1,000 ML 100 ML IV ×3 (07:40→12:14)
[2025-03-21] MEDS: SODIUM CHLORIDE 0.9 % (FLUSH) 10 ML SYRINGE IVF (07:40)
[2025-03-21] MEDS: ACETAMINOPHEN 500 MG TABLET 1000 MG PO ×3 (09:45→22:03)
[2025-03-21] MEDS: OXYCODONE (CR) 10 MG TAB.ER.12H PO (09:45)
[2025-03-21] MEDS: MIDAZOLAM HCL 1 MG/ML inj IVP (09:50)
[2025-03-21] MEDS: fentaNYL 100 MCG/2 ML inj IVP (09:50)
--- NOTE | 2025-03-21 09:54 | SUR.PREOP ---
TIME?OUT:?0949 PT/RN/MDA?VERIFICATION?OF?SURGICAL?SITE,?PROCEDURE,?AND?CONSENT OBTAINED?PRIOR?TO?INVASIVE?PROCEDURE.
--- NOTE | 2025-03-21 10:00 | P.NB_ITS ---
Nerve Block Nerve Block Time Seen by Provider: 09:55 Date Seen: 03/21/25 Type of block requested by surgeon for post-operative analgesia: geniculars Side: right Time out performed: Yes Verification of patient name: Yes Verification of date of : Yes Site marking: site marked Name of person performing procedure: Oneil Continuous monitoring Was continuous monitoring of O2 sat, B/P, monitor technician, recorded every 15 minutes?: Yes Procedure Checklist: sterile prep, needles and gloves Ultrasound guided. Images saved: Yes Medications given in 5ml increments after negative aspiration: Marcaine %: 0.25 mL: 9 Needle gauge: 25 Patient tolerated procedure well: Yes Block Charges Block Charge (with Pro Fee): Genicular Nerve Block
--- NOTE | 2025-03-21 10:01 | P.NB_ITS ---
Nerve Block Nerve Block Time Seen by Provider: 09:55 Date Seen: 03/21/25 Type of block requested by surgeon for post-operative analgesia: adductor canal Side: right Time out performed: Yes Verification of patient name: Yes Verification of date of : Yes Site marking: site marked Name of person performing procedure: Oneil Continuous monitoring Was continuous monitoring of O2 sat, B/P, engineer third assistant, recorded every 15 minutes?: Yes Procedure Checklist: sterile prep, needles and gloves Ultrasound guided. Images saved: Yes Medications given in 5ml increments after negative aspiration: Marcaine %: 0.25 mL: 15 Needle gauge: 20 Precedex (mcg): 25 Patient tolerated procedure well: Yes Block Charges Block Charge (with Pro Fee): Femoral Nerve Use of Ultrasound Machine for Block: Yes- US Guidance/pain block
--- NOTE | 2025-03-21 10:01 | P.ANES_ITS ---
Anesthesia Charges Start Date/Time Anesthesia Start Date: 03/21/25 Anesthesia Start Time: 10:00 Stop Date/Time Anesthesia Stop Date: 03/21/25 Anesthesia Stop Time: 12:02 Summary Extremes of Age - Over 70 or under 1: MDA Coding CPT Codes CPT Codes: ANESTH KNEE ARTHROPLASTY - 46076 ([id number]) P2 - PATIENT W/MILD SYST DISEASE, QK - PROCUREMENT SPECIALIST 2-4 CNCRNT ANES PROC, QX - FARM CROPS TEACHER SVC W/ MD MED DIRECTION Additional Codes: Summary - Extremes of Age - Over 70 or under 1: MDA ([id number])
--- NOTE | 2025-03-21 10:01 | W.ANESCHARGE ---
Anesthesia Charges Start Date/Time Anesthesia Start Date: 03/21/25 Anesthesia Start Time: 10:00 Stop Date/Time Anesthesia Stop Date: 03/21/25 Anesthesia Stop Time: 12:02 Summary Extremes of Age - Over 70 or under 1: MDA Coding CPT Codes CPT Codes: ANESTH KNEE ARTHROPLASTY - 30520 ([id number]) P2 - PATIENT W/MILD SYST DISEASE, QK - RADIO INTERFERENCE EXPERT 2-4 CNCRNT ANES PROC, QX - QA TEST LEAD SVC W/ MD MED DIRECTION Additional Codes: Summary - Extremes of Age - Over 70 or under 1: MDA ([id number])
--- NOTE | 2025-03-21 10:13 | W.PM.H&PU ---
History & Physical Update History & Physical Update H&P Reviewed and patient assessed: No changes noted
--- NOTE | 2025-03-21 10:16 | CRLHL7_ITS ---
For Patients: As a result of the Cures Act, medical imaging exams and procedure reports are released immediately into your electronic medical record. You may view this report before your referring provider. If you have questions, please contact your health care provider. Indication: Postop Technique: Two views right knee Findings/Impression: Hardware from a right total knee arthroplasty is in satisfactory position. Bone alignment is normal. No sign of acute fracture. Postop changes are within normal limits. Dictated by Chavez Elias MD @ 03/21/2025 12:44:03 PM (Electronically Signed)
[2025-03-21] MEDS: CEFAZOLIN 2 GM in 0.9 % SODIUM CHLORIDE Mini-bag 100 ML IVPB (10:29)
[2025-03-21] MEDS: TRANEXAMIC ACID 100 MG/ML INJ 1000 MG IV (10:29)
--- NOTE | 2025-03-21 11:26 | P.ORPRC_ITS ---
Procedure Note Date of procedure: 03/21/25 Procedure: PREOPERATIVE DIAGNOSIS: 1. Right knee osteoarthritis, primary, severe POSTOPERATIVE DIAGNOSIS: 1. Right knee osteoarthritis, primary, severe PROCEDURE: 1. Right total knee arthroplasty - subvastus SURGEON: Ferny Daigle MD. SPRAYING MACHINE OPERATOR: EDVIN Buck - Of note, a skilled funeral director's assistant was critical for this case to aid in patient positioning, tissue retraction, limb manipulation/positioning, and closure. ANESTHESIA: Spinal anesthetic IMPLANTS: DePuy J&J all cemented TKA - Attune PS femur size 5 narrow Size 4 tibia 5 poly spacer 35 mm patella TOURNIQUET: 90 min at 300 torr EBL: 50 ml COMPLICATIONS: None evident INDICATIONS: The patient is a pleasant 79-year-old female who has experienced severe right knee pain and difficulty bearing weight. Workup included x-rays which revealed severe osteoarthrosis in the knee. Given the deformity, the dysfunction, and the pain, as well as the failure of nonoperative management, recommendation was made for surgery. FINDINGS: Full-thickness chondral loss diffusely throughout the medial and patellofemoral compartments and to a lesser degree lateral compartment. Degenerative meniscus pathology medial greater than lateral. Moderate effusion upon entering the joint. DESCRIPTION OF PROCEDURE: Following a thorough discussion of risks, benefits, and alternatives consent was obtained and the right knee was marked. The patient was brought to the operating room and placed supine on the operating table. Induction of anesthesia was undertaken. 1 g IV Ancef and 1 g tranexamic acid was administered within 1 hr of incision preoperatively. Proper time-out was performed identifying proper patient, site, procedure. The operative extremity was prepped and draped in the appropriate sterile fashion using ChloraPrep after the patient was positioned supine with all bony prominences well padded. A longitudinal, anterior, midline skin incision was made starting approximately 3cm proximal to the superior pole of the patella and advanced distal to the tibial tubercle. A subvastus approach was utilized. A medial subperiosteal sleeve was created with knife, vigil elevator and curved osteotome. The retropatellar fatpad was resected and the synovium in the suprapatellar pouch excised to visualize the anterior femoral cortex. Femoral preparation was performed via an intramedullary guide. Step drill allowed access into the femoral canal. The distal cutting guide was placed with 5? of valgus and 10 mm cut on the distal femur. Femur was sized using a posterior referencing guide in 3? of external rotation. This found have a best fit with the sizing noted above. The 4 in 1 cutting block was then placed, and the distal femur shaped accordingly. The box cut was then created and the trial implant inserted to confirm appropriate fit. We turned our attention to the proximal tibia. Extramedullary guide was utilized for cutting with the goal of being 90 degree cut from the mechanical axis of the tibia in the varus/valgus plane utilizing tibial crest as the primary alignment. Initially a 3 mm resection was performed from the medial tibial plateau. Ultimately, balancing was achieved in both flexion and extension in both varus and valgus. The knee was able to achieve full extension as well comfortably. The patella was initially measured and found have a thickness of 21 mm. It was resected back to approximately 14 mm. It was sized to be a best fit with as noted above. This was drilled, trial placed. All trials were placed and found to have an excellent stability and balance. At this stage, trial implants were removed, the knee was thoroughly irrigated with normal saline, and the cement was mixed. After irrigation, the knee was thoroughly dried, and cement placed, with the real tibial and femoral implants placed along with the patella. Trial poly spacer was placed and confirmed to have excellent range of motion and full extension, and the real poly spacer opened and inserted. All extra cement was removed, and a 3 min Betadine soak performed. Finally, a final irrigation round with normal saline was performed. Closure performed with 0 Vicryl and #0 Stratafix for the quad t endon/retinaculum. 2-0 Vicryl for the subcutaneous and 4-0 Stratafix for subcuticular closure. Dressings were applied and the patient was awoken from anesthesia after the tourniquet deflated and transferred the PACU in stable condition. A skilled funeral director's assistant was critical for this case to aid in patient positioning, tissue retraction, bone exposure, limb manipulation/positioning, patient safety, and closure. PLAN: 1. Weight bear as tolerated operative extremity. 2. 23 hr perioperative antibiotics. 3. Ice. 4. PT/OT consults for ambulation assistance/mobility education. 5. Social work consult for discharge planning. 6. DVT prophylaxis with at SCDs and aspirin twice daily.
--- NOTE | 2025-03-21 11:58 | P.ANES_ITS ---
Anesthesia Charges Start Date/Time Anesthesia Start Date: 03/21/25 Anesthesia Start Time: 10:00 Stop Date/Time Anesthesia Stop Date: 03/21/25 Anesthesia Stop Time: 12:02 Coding CPT Codes CPT Codes: ANESTH KNEE ARTHROPLASTY - 28331 ([id number]) P2 - PATIENT W/MILD SYST DISEASE, QK - SCHOOL NURSE 2-4 CNCRNT ANES PROC, QX - STUNT DRIVER SVC W/ MD MED DIRECTION
--- NOTE | 2025-03-21 11:58 | W.ANESCHARGE ---
Anesthesia Charges Start Date/Time Anesthesia Start Date: 03/21/25 Anesthesia Start Time: 10:00 Stop Date/Time Anesthesia Stop Date: 03/21/25 Anesthesia Stop Time: 12:02 Coding CPT Codes CPT Codes: ANESTH KNEE ARTHROPLASTY - 45067 ([id number]) P2 - PATIENT W/MILD SYST DISEASE, QK - MILL DRESSER 2-4 CNCRNT ANES PROC, QX - LOCAL SALES MANAGER SVC W/ MD MED DIRECTION
[2025-03-21] MEDS: OXYCODONE 5 MG TABLET PO ×2 (15:28→22:02)
--- NOTE | 2025-03-21 15:35 | PM.IMCN1 ---
Date of Consult Patient: [facility] Patient Consult date: 03/21/25 Requesting Physician: Orthopedics Primary Care Provider: Esther Lee PA-C Consult Narrative Narrative: Anabel Bradford is a 79 year old woman who presents for an elective right total knee arthroplasty for treatment of severe symptomatic right gonarthrosis. This is undertaken successfully today with Dr. Verde, at [facility], [place], [place], without any apparent complications. Estimated blood loss is 50 mL. Review of Systems Status of ROS: Reports: 6 or more systems reviewed and unremarkable except as noted in History and below Narrative: Over the past year patient has noted a sense of increasing fatigue and exhaustion with exertion. She continues to be able to do all she enjoys doing and wants to do including gardening, but finds herself having to take breaks more frequently compared to previously. Specifically denies angina, anginal equivalent, syncope near syncope, nausea, vomiting, palpitations, dyspnea at rest, paroxysmal nocturnal dyspnea, orthopnea. Denies fevers, rigors, diaphoresis. Denies nighttime sweats. Denies weight loss. Denies weight gain. Aside from the right knee pain denies other arthralgias or myalgias. Working closely with her primary care physician. Does take escitalopram 15 mg once daily with satisfactory results. Has been on the same dose of medication for some time. Historically she has been diagnosed with obstructive sleep apnea but it was deemed mild and she was not a candidate for CPAP or an oral appliance. It is unclear if this is an issue now that needs to be further assessed in regard to her evolving fatigue and exhaustion over the past year. Asthma is well modified. Has not had exacerbation for number of months and does not take medications for preventive purposes. 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) ?M53.9 - Dorsopathy, unspecified (ICD-10) Patellofemoral arthralgia of both knees ?M22.2X1 - Patellofemoral disorders, right knee (ICD-10) ?M22.2X2 - Patellofemoral disorders, left knee (ICD-10) Surgical History History of basal cell carcinoma excision ?Z98.890 - Other specified postprocedural states (ICD-10) ?Z85.828 - Personal history of other malignant neoplasm of skin (ICD-10) History of shoulder surgery ?Z98.890 - Other specified postprocedural states (ICD-10) History of hysterectomy (1975) ?Z90.710 - Acquired absence of both cervix and uterus (ICD-10) History of esophagogastroduodenoscopy (EGD) ?Z98.890 - Other specified postprocedural states (ICD-10) History of colonoscopy (09/17/18) ?Z98.890 - Other specified postprocedural states (ICD-10) Abnormal cystoscopy (2018) ?R39.9 - Unspecified symptoms and signs involving the genitourinary system (ICD-10) Family History Father Alcoholism Colon cancer Mother Alzheimers disease Liver cancer Sister Anxiety disorder Social History Narrative: -Thomas What is your current living situation?: I presently have a place to live In the past 12 months, utilities in danger of being shut off: no In past 12 months, lack of transportation kept you from medical appts, meetings, work, or getting things needed for daily living: no In the past 12 mos, have been you worried that your food would run out before you had money to buy more?: never true In the past 12 mos, the food you bought just didn't last and you didn't have money to buy more?: never true Smoking Status: Never smoker Do you use any of these nicotine containing products: None Second hand tobacco smoke exposure: No How often do you have a drink containing alcohol: monthly or less Alcohol type: wine and hard liquor How many standard drinks containing alcohol do you have on a typical day: 1 or 2 AUDIT-C Alcohol total score: 1 Non-prescribed substance use: denies use Caffeine: Yes Are you now , , , , never or living with a partner: Social isolation score (0-1 are the most socially isolated patients): 1 How often does anyone, including family, friends and others, physically hurt you: never How often does anyone, including family, friends and others, insult or talk down to you: never How often does anyone, including family, friends and others, threaten you with harm: never How often does anyone, including family, friends and others, scream or curse at you: never service: No Meds Home Medications and Allergies Home Medications ?Medication ?Instructions ?Recorded ?Confirmed ?Type betamethasone, augmented 0.05 % 1 applic topical DAILY PRN 01/15/24 03/21/25 History lotion ketoconazole 2 % shampoo 1 applic topical 3XW PRN 01/15/24 03/21/25 History albuterol sulfate 90 mcg/actuation 2 puff inhalation Q4H PRN 06/07/24 03/21/25 Rx aerosol inhaler bronchospasm #6.7 grams acetaminophen 500 mg capsule 500 - 1,000 mg (1 - 2 x 500 mg) PO 03/21/25 Rx Q6H PRN #100 caps aspirin 81 mg tablet,delayed 81 mg PO BID #60 tabs 03/21/25 Rx release escitalopram oxalate 10 mg tablet 15 mg PO DAILY 03/21/25 03/21/25 History (Lexapro) oxycodone 5 mg tablet 2.5 - 5 mg (0.5 - 1 x 5 mg) PO 03/21/25 Rx Q4-6H PRN pain #42 tabs sennosides 8.6 mg-docusate sodium 1 - 4 tab-cap (1 - 4 x 8.6-50 mg) 03/21/25 Rx 50 mg tablet (Senna-S) PO BID PRN constipation #60 tabs Allergies Allergy/AdvReac Type Severity Reaction Status Date / Time prednisone Allergy Vomiting Verified 03/08/25 11:06 Exam Narrative: Exam Narrative: I examine her in her hospital room. Appears comfortable and in no acute distress. Alert and oriented x4. Friendly, articulate, cooperative. No focal motor neurologic deficits. Lungs entirely clear to auscultation without wheezing, rhonchi, rales. Chest wall excursions are full. No CVA tenderness. Heart tones with regular rhythm, normal S1-S2, without murmur, gallop, rub. PMI is not laterally displaced. Abdomen with active bowel sounds, soft, nontender. Const: Vital Signs, click to edit/add: Vital Signs - 24 hr 03/21/25 07:05 03/21/25 09:50 03/21/25 11:57 Temperature 97.4 F L Pulse Rate 70 58 L 52 L Respiratory Rate 16 14 15 Blood Pressure 144/85 H 180/107 H 86/52 L Pulse Oximetry 94 97 94 Oxygen Delivery Me thod Room Air Nasal Cannula Room Air Oxygen Flow Rate 2 03/21/25 12:05 03/21/25 12:10 03/21/25 12:15 Temperature Pulse Rate 54 L 54 L 51 L Respiratory Rate 16 16 16 Blood Pressure 86/55 L 93/56 L 99/59 L Pulse Oximetry 95 93 98 Oxygen Delivery Me thod Oxygen Flow Rate 03/21/25 12:20 03/21/25 12:25 03/21/25 12:38 Temperature 97.2 F L Pulse Rate 52 L 51 L 51 L Respiratory Rate 15 16 Blood Pressure 109/63 99/61 Pulse Oximetry 97 97 92 Oxygen Delivery Me thod Room Air Oxygen Flow Rate 03/21/25 12:39 03/21/25 12:45 03/21/25 12:47 Temperature 96.9 F L Pulse Rate 50 L 49 L 48 L Respiratory Rate 14 Blood Pressure 100/60 103/54 L Pulse Oximetry 93 97 98 Oxygen Delivery Me thod Oxygen Flow Rate 03/21/25 13:00 03/21/25 13:02 03/21/25 13:07 Temperature Pulse Rate 56 L 68 Respiratory Rate Blood Pressure 98/82 Pulse Oximetry 95 93 Oxygen Delivery Me thod Room Air Oxygen Flow Rate 03/21/25 13:07 03/21/25 13:17 03/21/25 13:30 Temperature 96.9 F L Pulse Rate 68 52 L 48 L Respiratory Rate 14 Blood Pressure 98/82 Pulse Oximetry 93 92 95 Oxygen Delivery Me thod Room Air Oxygen Flow Rate 2 03/21/25 13:31 03/21/25 14:44 03/21/25 14:46 Temperature Pulse Rate 50 L Respiratory Rate 14 Blood Pressure 104/60 Pulse Oximetry 96 96 96 Oxygen Delivery Me thod Room Air Oxygen Flow Rate Assessment and Plan Assessment and plan (1) Osteoarthritis of right knee: Problem comment: Severe Status: Chronic (2) Status post right knee replacement: Problem comment: - 03/21/2025, Dr. Verde, [facility], [place], [place] without complications. Estimated blood loss 50 mL. Status: Acute (3) Major depressive disorder, recurrent episode with anxious distress: Problem comment: - stable on escitalopram 15 mg daily Status: Acute (4) Obstructive sleep apnea syndrome: Problem comment: not on CPAP Status: Acute (5) Hyperlipidemia: Status: Acute (6) Asthma, mild intermittent, well-controlled: Status: Acute (7) Low vitamin D level: Status: Acute (8) Memory deficit: Status: Acute (9) Fatigue: Problem comment: - 03/21/2025: I review recent laboratory studies which appeared normal including hemoglobin, TSH, electrolytes, creatinine and BUN. Do consideration may be given to the possibility of attempting to decrease dose of escitalopram to establish minimum dose for maximum benefit and the possibility that the medication may be causing some of this fatigue when she sees her primary critical care paramedic in follow-up. Status: Inactive Plan 1. I reviewed my impression, plans, recommendations with the patient 2. Answered her questions are satisfaction 3. She is agreeable with above stated plans and recommendations 4. I have completed the hospitalist portion of the discharge orders Total Time Spent Total Time Spent: 50 minutes
[2025-03-21] MEDS: CEFAZOLIN 1 GM in 0.9 % SODIUM CHLORIDE Mini-bag 100 ML IVPB (16:02)
--- NOTE | 2025-03-21 17:45 | PC.NURSE ---
Patient admitted S/P TRKA. Patient ambulated with assist of one, gait belt, and walker. Patients VSS and Alert and oriented. Patient utilizing prn medications for pain. Patient tolerating regular diet and walking outside of room.
[2025-03-21] MEDS: ASPIRIN 81 MG TABLET EC PO (21:55)
[2025-03-21] MEDS: SENNOSIDES 1 TAB TABLET 2 TAB PO (21:55)
[2025-03-22] MEDS: CEFAZOLIN 1 GM in 0.9 % SODIUM CHLORIDE Mini-bag 100 ML IVPB (00:17)
[2025-03-22 03:10] VITALS: BP 130/60; PULSE 75; RESP 16; TEMP 36.5; O2SAT 95
[2025-03-22] MEDS: ACETAMINOPHEN 500 MG TABLET 1000 MG PO ×2 (04:24→10:33)
[2025-03-22] MEDS: OXYCODONE 5 MG TABLET PO ×2 (04:24→08:11)
--- NOTE | 2025-03-22 05:43 | PC.NURSE ---
Pt is alert and oriented x3. Afebrile. Pt reports 3-5/10 pain in right knee, pain managed with scheduled and PRN medication. Pt?s right knee dressing is dry and intact with a small spot of dried blood that was outlined prior to this RN?s shift and it has not grown outside of the outline. Pt is up SBA with walker and gait belt, voiding, passing gas and tolerating a regular diet. ?
[2025-03-22 06:09] LABS: Basophils Absolute Auto 0.01 K/uL (0.00-0.30); Basophils Percent Auto 0.1 % (0.0-3.0); Hematocrit 32.1 % (33.0-51.0); Hemoglobin* 10.6 gm/dL (12.0-16.0); Immature Granulocytes Abs Auto 0.01 K/uL (0.00-0.30); Immature Granulocytes Pct Auto 0.1 %; Lymphocytes Percent Auto 8.7 % (20-44); Mean Corpuscular HGB Conc 33 gm/dL (32-36); Mean Corpuscular Hemoglobin 29 pg (26-34); Mean Corpuscular Volume 88 fL (80-100); Monocytes Percent Auto 8.7 % (0.0-11.0); Neutrophils Percent Auto 82.4 % (42.0-72.0); Platelet Count* 174 K/uL (140-440); RDW Coefficient of Variation % 12.2 % (11.5-15.5); Red Blood Count 3.63 m/uL (4.00-5.20); White Blood Count* 9.31 K/uL (4.50-11.00)
[2025-03-22 06:14] LABS: Slide Review Reflex No
[2025-03-22 06:30] LABS: Potassium* 4.3 mmol/L (3.6-5.1); Sodium* 134 mmol/L (135-149)
[2025-03-22 06:33] LABS: Blood Urea Nitrogen* 19 mg/dL (7-30); Creatinine* 0.8 mg/dL (0.5-1.5); Est. Creatinine Clearance* 50.41; Estimated Glomerular Filt Rate 75 ml/min
[2025-03-22 07:00] VITALS: BP 118/56; PULSE 76; RESP 18; TEMP 36.7; O2SAT 94
[2025-03-22] MEDS: ASPIRIN 81 MG TABLET EC PO (08:11)
[2025-03-22] MEDS: ESCITALOPRAM 10 MG TABLET 15 MG PO (08:11)
[2025-03-22] MEDS: SENNOSIDES 1 TAB TABLET 2 TAB PO (08:11)
--- NOTE | 2025-03-22 09:41 | P.ORPN_ITS ---
Subjective Subjective Date Seen: 03/22/25 Principal diagnosis: Status postop day 1 Right total knee arthroplasty Interval history: Patient reports doing okay. No acute events over night. Reports pain 5-6/10; prior to surgery, 08/19. Not sure if the oxycodone is helping her pain at this time. Pain managed with scheduled and PRN medications, ice. DVT prophylaxis: 81 mg aspirin by mouth twice daily, SCDs, walking. Denies fevers, chills, aches, N/V, CP, SOB/ARENAS, or lightheadedness. Ortho Exam Narrative Exam Narrative: -Patient appears comfortable; no apparent acute distress -Alert and oriented times 3 -Operative knee moderately swollen; soft tissues supple; no ecchymosis; no erythematous streaking Warmth appropriate -Surgical dressing shows small 1.5cm in diameter area of dried blood mid bandage. Overall bandage is clean, dry, intact; no ongoing drainage -Bilateral calfs soft; no significant swelling, edema, tenderness, erythema, discoloration, warmth, or palpable cords -2+ DP/PT pulses, intact dermatomes and myotomes distally (5/5 strength) Const Vital Signs, click to edit/add: Vital Signs - 24 hr 03/21/25 09:50 03/21/25 11:57 03/21/25 12:05 Temperature 97.4 F L Pulse Rate 58 L 52 L 54 L Pulse Rate [Left Pulse Oximeter] Respiratory Rate 14 15 16 Blood Pressure 180/107 H 86/52 L 86/55 L Blood Pressure [Left Arm] Pulse Oximetry 97 94 95 Oxygen Delivery Method Nasal Cannula Room Air Oxygen Flow Rate 2 03/21/25 12:10 03/21/25 12:15 03/21/25 12:20 Temperature Pulse Rate 54 L 51 L 52 L Pulse Rate [Left Pulse Oximeter] Respiratory Rate 16 16 15 Blood Pressure 93/56 L 99/59 L 109/63 Blood Pressure [Left Arm] Pulse Oximetry 93 98 97 Oxygen Delivery Method Oxygen Flow Rate 03/21/25 12:25 03/21/25 12:38 03/21/25 12:39 Temperature 97.2 F L 96.9 F L Pulse Rate 51 L 51 L 50 L Pulse Rate [Left Pulse Oximeter] Respiratory Rate 16 14 Blood Pressure 99/61 100/60 Blood Pressure [Left Arm] Pulse Oximetry 97 92 93 Oxygen Delivery Method Room Air Oxygen Flow Rate 03/21/25 12:45 03/21/25 12:47 03/21/25 13:00 Temperature Pulse Rate 49 L 48 L 56 L Pulse Rate [Left Pulse Oximeter] Respiratory Rate Blood Pressure 103/54 L Blood Pressure [Left Arm] Pulse Oximetry 97 98 95 Oxygen Delivery Method Oxygen Flow Rate 03/21/25 13:02 03/21/25 13:07 03/21/25 13:07 Temperature 96.9 F L Pulse Rate 68 68 Pulse Rate [Left Pulse Oximeter] Respiratory Rate 14 Blood Pressure 98/82 98/82 Blood Pressure [Left Arm] Pulse Oximetry 93 93 Oxygen Delivery Method Room Air Room Air Oxygen Flow Rate 2 03/21/25 13:17 03/21/25 13:30 03/21/25 13:31 Temperature Pulse Rate 52 L 48 L 50 L Pulse Rate [Left Pulse Oximeter] Respiratory Rate Blood Pressure 104/60 Blood Pressure [Left Arm] Pulse Oximetry 92 95 96 Oxygen Delivery Method Oxygen Flow Rate 03/21/25 14:44 03/21/25 14:46 03/21/25 15:30 Temperature 96.5 F L Pulse Rate 87 Pulse Rate [Left Pulse Oximeter] Respiratory Rate 14 14 Blood Pressure 105/52 L Blood Pressure [Left Arm] Pulse Oximetry 96 96 95 Oxygen Delivery Method Room Air Room Air Oxygen Flow Rate 03/21/25 16:30 03/21/25 17:30 03/21/25 18:33 Temperature 96.9 F L 97.8 F 97.4 F L Pulse Rate 63 67 73 Pulse Rate [Left Pulse Oximeter] Respiratory Rate 14 14 14 Blood Pressure 120/48 L 136/77 123/67 Blood Pressure [Left Arm] Pulse Oximetry 95 95 95 Oxygen Delivery Method Room Air Room Air Room Air Oxygen Flow Rate 03/21/25 19:40 03/21/25 21:46 03/21/25 21:46 Temperature 97.8 F 97.9 F Pulse Rate Pulse Rate [Left Pulse Oximeter] 62 60 60 Respiratory Rate 16 16 Blood Pressure Blood Pressure [Left Arm] 128/73 150/65 H Pulse Oximetry 92 92 Oxygen Delivery Method Room Air Room Air Oxygen Flow Rate 03/21/25 21:46 03/22/25 03:10 03/22/25 07:00 Temperature 97.7 F Pulse Rate Pulse Rate [Left Pulse Oximeter] 75 Respiratory Rate 16 16 18 Blood Pressure Blood Pressure [Left Arm] 130/60 Pulse Oximetry 92 95 94 Oxygen Delivery Method Room Air Room Air Room Air Oxygen Flow Rate 03/22/25 07:00 Temperature 98.0 F Pulse Rate Pulse Rate [Left Pulse Oximeter] 76 Respiratory Rate 18 Blood Pressure Blood Pressure [Left Arm] 118/56 L Pulse Oximetry 94 Oxygen Delivery Method Room Air Oxygen Flow Rate Assessment and Plan Assessment and plan (1) Osteoarthritis of right knee: Problem details: Severe Status: Chronic (2) Status post right knee replacement: Problem details: - 03/21/2025, Dr. Verde, [place], [place] without complications. Estimated blood loss 50 mL. Status: Acute (3) Major depressive disorder, recurrent episode with anxious distress: Problem details: - stable on escitalopram 15 mg daily Status: Acute (4) Obstructive sleep apnea syndrome: Problem details: not on CPAP Status: Acute (5) Hyperlipidemia: Status: Acute (6) Asthma, mild intermittent, well-controlled: Status: Acute (7) Low vitamin D level: Status: Acute (8) Memory deficit: Status: Acute (9) Fatigue: Problem details: - 03/21/2025: I review recent laboratory studies which appeared normal including hemoglobin, TSH, electrolytes, creatinine and BUN. Do consideration may be given to the possibility of attempting to decrease dose of escitalopram to establish minimum dose for maximum benefit and the possibility that the medication may be causing some of this fatigue when she sees her primary customer care assistant in follow-up. Status: Inactive Plan - Complete 23 hour perioperative antibiotics. - PT/OT consult for education and assistance. - Social work consult for discharge planning - Prescribed analgesics as needed - DVT prophylaxis: 81 mg aspirin by mouth twice daily, walking, and SCDs - Anticipation is for discharge to home with family today 03/22/2025 if the patient remains medically stable, pain is controlled, and they are safe with mobilization.
--- NOTE | 2025-03-22 10:54 | PC.SOCIAL ---
Social Work Consult: SW met with patient and family prior to discharging. Patient states she has no needs or concerns for going home.
--- NOTE | 2025-03-22 11:24 | PC.NURSE ---
Discharge - Pt alert, oriented, cooperative and pleasant. Up with standby assistance and walker/gait belt. Tolerating RA and regular diet/fluids. Pt reported pain in R knee as 5/10, pt shared concerns with RN regarding pain management. Medication given per MAR and education provided to pt about non-pharmacological pain management techniques. RN notified surgical PA of pt concerns. IV removed with catheter intact, discharge education provied with pt and family support verbalizing understanding. Pt d/c to home with family via wheelchair at approximately 1055.
== END 2025-03-22 11:00 | disposition home or self-care (01) ==
LOC: OR 06:58 → MEDSURG 06:59
PROVIDERS: PCP Physician Assistant Medical; Visit Provider Orthopaedic Surgery Sports Medicine
PROC: (CPT 27447; principal; 2025-03-21 09:00)
DX: M17.11 Unilateral primary osteoarthritis, right knee (principal); G89.18 Other acute postprocedural pain; G47.33 Obstructive sleep apnea (adult) (pediatric); Z79.82 Long term (current) use of aspirin; F33.9 Major depressive disorder, recurrent, unspecified; J45.20 Mild intermittent asthma, uncomplicated; E55.9 Vitamin D deficiency, unspecified; R41.3 Other amnesia; E78.5 Hyperlipidemia, unspecified
CPT/HCPCS: 27447; 01402; 36415; 64447; 64454; 73560; 76942; 82565; 84132; 84295; 84520; 85025; 97110; 97116; 97161; 97165; 97530; 97535; 99100; A9270; C1776; J0666; J0690; J1100; J2250; J2405; J2704; J3010; J7120

== ENCOUNTER 2025-04-11 11:22 | Outpatient (CLI) | payer MEDICARE, SELFPAY ==
--- NOTE | 2025-04-11 11:30 | CRLHL7_ITS ---
For Patients: As a result of the Century Cures Act, medical imaging exams and procedure reports are released immediately into your electronic medical record. You may view this report before your referring provider. If you have questions, please contact your health care provider. INDICATION: Pain in right lower leg TECHNIQUE: Venous duplex ultrasound of the right lower extremity utilizing compression with seymour-scale, color Doppler, and spectral Doppler imaging. COMPARISON: None FINDINGS: There is no sonographic evidence of deep vein thrombosis in the right common femoral, deep femoral, superficial femoral, popliteal, posterior tibial, peroneal, or contralateral common femoral veins. There is no visualized superficial vein thrombosis. The soft tissues are unremarkable. IMPRESSION: No deep vein thrombosis in the right lower extremity. Dictated by Scott Whitfield MD @ 04/11/2025 12:46:07 PM (Electronically Signed)
== END 2025-04-11 11:23 | disposition home or self-care (01) ==
LOC: US 11:22
PROVIDERS: PCP Physician Assistant Medical; Visit Provider Physician Assistant Surgical
DX: M79.661 Pain in right lower leg (principal)
CPT/HCPCS: 93971

== ENCOUNTER 2025-05-06 11:00 | Outpatient (RCR) | payer MEDICARE, SELFPAY ==
--- NOTE | 2025-03-25 15:55 | PT.OPE ---
PT [place] Outpatient Eval PT [facility] Outpatient Eval Start: 03/25/25 12:53 Freq: Status: Active Protocol: Document 03/25/25 15:51 ENM (Rec: 03/25/25 15:52 ENM [id number]) E-signed By Rashida Winter, DPT Physical Therapy Outpatient Evaluation Insurance Information Recert Due Date 06/23/25 Insurance Name Medicare B Medical Diagnosis presence of right artificial knee joint DOS 03/21/25 s/p right TKA Treating Diagnosis right knee pain, impaired gait , decreased knee ROM, impaired balance, muscle weakness, swelling Referring MD Daigle Subjective Subjective Patient underwent right TKA on 03/21/[address] Daigle. Has no pain at rest. Has tried to keep the knee straight. Has pain with walking and bending the knee -03/19. Is taking oxy once in the morning and once at night. Lives in a single level home. Is worried about her ankle swelling. Hasn't been elevating above the heart but has been icing. Uses the walker to get around and that is going well. Does find herself leaving it behind at times. Has not been doing her exercises regularly. Prior to surgery they had a lot of knee pain for ~1.5 years which limited her activity. Her goal is to get rid of the AD, drive and do her normal activities. 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 PMHx: depression, anxiety, arthritis, Pain Comments Date of Surgery (If applicable) 03/21/25 Current Work Status Retired Objective Other/Pertinent Objective Knee ROM L 4-0-137 R 0-1-101 strength: poor quad set activation SLR CGA gait/balance: Patient ambulates with decreased right knee extension, flexed posture, decreased foot clearance, minimal reliance on walker for support swelling/observation: Patient displays extensive dark bruising medial moss, medial and lateral thigh, medial calf Does have a laura size amount of seepage on bandage that has been present since being in the hospital which has not grown in size superior patella: L 42 cm R 49 cm mid patella: L 39 cm R 43.5 cm inf patella: L 36 cm R 42.5 cm Assessment Assessment/Impression Patient returns to PT for evaluation after R TKA DOS 11/03. They struggled with knee pains for 1.5 years prior to surgery. Since surgery they have been able to ambulate with minimal difficulty using 2WW. They have pain with ambulation and bending the knee, although straightening the knee is going just fine. They have had extensive bruising post operatively which they are monitoring. Her goal is to get back to normal mobility as quickly as possible. Upon assessment patient displays decreased knee ROM( 0 -1-101), impaired gait, impaired transfers, decreased quad strength and swelling. Impairments consistent with s/ p TKA. She displays poor quad activation and requires CGA to perform SLR initially. They are ambulating well with minimal reliance on 2WW for support. Global knee swelling measure is around 6 cm compared to contralateral side with extensive bruising present and laura sized seepage on bandage. Therapist and colleague inspected swelling and bruising and felt that it looked worse than it was. Patient was advised to continue monitoring and educated on signs that would warrant communication with MD or ED visit. Anabel would benefit from skilled PT to address impairments stated above for return to PLOF after knee replacement. Primary Functional Limitations walking, driving, bending, reaching, Plan of Care Rehabilitation Potential Good Physical Therapy Goals In 3-4 weeks: 1. Patient will improve knee ROM to > 110 for improved ease of STS transfers 2.Patient will ambulate with improved mechanics and less than 2/10 knee pain with or without AD >150' for improved household/community mobility 3. Patient will perform x10 SLR with improved form and strength to improve supine<> sit transfer In 6-8 weeks: 1. Patient will improve knee ROM to >120 in order to comfortably navigate stairs for household and community navigation 2. Patient will be able to walk up to 10 minutes without use of AD or report of increased knee pain 3. Patient will return to gardening activities without difficulty or pain Coordination/Communication With Referral Source Treatment Plan/Direct Interventions Electrical Stimulation,Gait Training,Ice/Cold/ Vasopneumatic,Joint Mobilization,Manual Therapy, Neuromuscular Re-ed,Self-Care/ Home Management,Therapeutic Activities,Therapeutic Exercises Frequency/Duration 2x a week for 6 weeks, as needed for 3-4 visits Patient Will Be Discharged From Therapy Completion of LTG(s), Independent w/HEP Evaluation Billing Untimed Code Treatment Minutes 21 Complexity Low Certification Information Initial Certification Date 03/25/25 Ending Certification Date 06/23/25 Provider Signature Required Yes Provider Signature Shows Agreement With POC & Medical Necessity Physician NPI Number Write NPI# Here Physician Comment/Change : Physician Signature & Date Requested Please Sign/Date Here
== END 2025-09-03 23:59 | disposition home or self-care (01) ==
PROVIDERS: PCP Physician Assistant Medical; Visit Provider Orthopaedic Surgery Sports Medicine
DX: Z47.1 Aftercare following joint replacement surgery (principal); Z96.651 Presence of right artificial knee joint; Z51.89 Encounter for other specified aftercare
CPT/HCPCS: 97110; 97116; 97140; 97161; 97530

== ENCOUNTER 2025-07-25 13:10 | Outpatient (CLI) | payer MEDICARE, SELFPAY | END 2025-07-25 13:11 | disposition home or self-care (01) | LOC: NFLDREF 07-31 03:01 | PROVIDERS: PCP Physician Assistant Medical; Referring Provider Physician Assistant Medical; Visit Provider Physician Assistant Medical | DX: R35.0 Frequency of micturition (principal); N39.0 Urinary tract infection, site not specified; R41.3 Other amnesia; F33.9 Major depressive disorder, recurrent, unspecified; R05.3 Chronic cough; E78.2 Mixed hyperlipidemia; F51.01 Primary insomnia | CPT/HCPCS: 87086 ==